=== PATIENT | male | born 1955 | race Caucasian/White ===

== ENCOUNTER 2020-07-04 10:57 | Inpatient (IN) ==
[2020-07-04] MEDS ORDERED: MoRPHine SULFATE 4 MG/ML 1 ML CARP\\VIAL IV STA ×2 (11:21→17:01)
[2020-07-04] MEDS ORDERED: SODIUM CHLORIDE 0.9% 1000ML 2,000 ML IV ONE (11:21)
--- NOTE | 2020-07-04 11:30 | Emergency Department Note ---
Impression & Plan Sepsis, Leukocytosis, Acute UTI, Acute epididymitis ED Provider Note NAME: KARLO SMITH AGE: 65 SEX: M : 1955 ARRIVES VIA: Walk-In INFORMANT: Patient, ED PROVIDER(S): Dell Morgan DO CHIEF COMPLAINT: abdominal pain HPI: Patient is a 65-year-old male with past medical history of KILEY, bronchitis and atrial flutter that presents the ER for multiple complaints. Everything started yesterday with abdominal pain and lower belly, nausea, and vomiting. Following this he has been dizzy lightheaded and had a headache. He denies any chest pain. Over the past 2 to 3 weeks he has been having increased difficulty urinating. He has had some overflow incontinence today. He has had diarrhea as well. He is noted some blood in his urine today. Admits to some mild shortness of breath chills. Fever was as high as 101 yesterday. No other exacerbating or remitting factors. He is also having bilateral testicle pain. ROS: See above HPI for pertinent positives & negatives. A total of 10 systems reviewed and were otherwise negative. PAST MEDICAL HISTORY:See Below PAST SURGICAL HISTORY:See Below FAMILY HISTORY:See Below SOCIAL HISTORY:See Below HOME MEDICATIONS:See Below ALLERGIES:See Below VITALS:See Below PHYSICAL EXAMINATION: GENERAL: Sitting up in bed, alert, ill-appearing, disheveled EYE EXAM: normal conjunctiva. OROPHARYNX: no exudate, no erythema, lips, buccal mucosa, and tongue normal and mucous membranes are moist NECK: supple, no nuchal rigidity, no adenopathy, non-tender LUNGS: Clear to auscultation. Normal chest wall mechanics HEART: no murmurs, S1 normal and S2 normal ABDOMEN: abdomen soft, non-tender, normo-active bowel sounds, no masses, no rebound or guarding. : Bilateral testicle pain UPPER EXTREMITIES: upper extremities are grossly normal. LOWER EXTREMITIES: No pitting edema. NEURO EXAM: Normal sensorium, cranial nerves II-XII grossly intact, normal speech, no gross weakness of arms, no gross weakness of legs. MEDICAL DECISION MAKING: Patient is a 65-year-old male who presents the ER for fever and abdominal pain associate with nausea vomiting. IV was established blood work was obtained. He was found to be febrile and tachycardic. Labs show leukocytosis 13,000. No significant anemia. INR was unremarkable. BMP with slightly elevated chloride. LFTs bilirubin was remarkable for T bili of 1.3. Troponin was negative. Pro- Fadi was normal. UA does show a clear UTI. Covid was negative. CT abdomen pelvis shows inflammation around the bladder. Ultrasound showed epididymitis. Patient was given IV fluids IV antibiotics and IV morphine. He was updated bedside admitted to the hospital for further work-up. Triage Nursing notes reviewed. Limited review of prior medical records performed Vital Signs: reviewed and remarkable for no significant abnormalities Differential diagnosis: Differential diagnosis includes etiologies such as sepsis, UTI, pneumonia, metabolic, electrolyte abnormalities, cardiac sources, intracerebral event, toxicologic, neurological, as well as others were entertained. ER treatment provided: See below Diagnostics interpreted by me: ECG: Sinus rhythm rate of 71 Normal axis No PVCs QTC 447 Cardiac Monitoring: An order was placed for continuous cardiac monitoring. The monitor shows a rate of 70 with sinus rhythm. Laboratory studies: As stated above and show below. 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 [employer] Feels Safe at Home: Yes Allergies Allergies Allergy/AdvReac Type Severity Reaction Status Date / Time Penicillins Allergy Intermediate RASH Verified 07/04/20 13:13 Home Meds Home Medications Medication Instructions Recorded Confirmed ascorbic acid (vitamin C) [Vitamin 500 mg PO QDD 06/02/18 07/04/20 C] [id number] K-lycop 1 tab PO QDD 06/02/18 07/04/20 [Men's 50 Plus Multivitamin] tamsulosin [Flomax] 0.4 mg PO HS 06/02/18 07/04/20 aspirin [Aspir-81] 81 mg PO HS 07/04/20 07/04/20 omeprazole 40 mg PO DAILYBB 07/04/20 07/04/20 Previous Rx's Medication Instructions Recorded flecainide 100 mg tablet 100 mg PO Q12H #180 tab 01/05/20 metoprolol tartrate 25 mg tablet 25 mg PO BID #180 tab 01/05/20 Results & Data (ED) Vital Signs Vital Signs - 24 hr 07/04/20 11:04 07/04/20 12:00 07/04/20 12:09 Temperature 37.3 C Temperature Source Temporal Artery Scan Pulse Rate 74 74 73 Pulse Rate [Right Finger] Pulse Rate from SpO2 Sensor 74 73 Pulse Rhythm Pulse Rhythm [Right Finger] Pulse Strength [Right Finger] Respiratory Rate 16 36 H 35 H Respiratory Effort / Characteristics Respiratory Depth Blood Pressure 136/79 136/75 Blood Pressure [Left Arm] Blood Pressure Mean 98 95 Blood Pressure Mean [Left Arm] Pulse Oximetry 95 94 95 Oxygen Delivery Method Sepsis Recent Fever Within 48 Hours No Sepsis New/Unexplained Change in Mental Status No Sepsis Action Taken by Nursing No Action Required 07/04/20 12:10 07/04/20 12:20 07/04/20 12:23 Temperature Temperature Source Pulse Rate 81 75 78 Pulse Rate [Right Finger] 75 Pulse Rate from SpO2 Sensor 80 74 Pulse Rhythm Regular Pulse Rhythm [Right Finger] Regular Pulse Strength [Right Finger] Respiratory Rate 20 16 20 Respiratory Effort / Characteristics Short of Breath Respiratory Depth Normal Blood Pressure Blood Pressure [Left Arm] 136/75 Blood Pressure Mean Blood Pressure Mean [Left Arm] 95 Pulse Oximetry 95 95 95 Oxygen Delivery Method Room Air Sepsis Recent Fever Within 48 Hours Sepsis New/Unexplained Change in Mental Status Sepsis Action Taken by Nursing 07/04/20 12:30 07/04/20 12:31 07/04/20 12:40 Temperature Temperature Source Pulse Rate 79 78 79 Pulse Rate [Right Finger] Pulse Rate from SpO2 Sensor 79 79 80 Pulse Rhythm Pulse Rhythm [Right Finger] Pulse Strength [Right Finger] Respiratory Rate 28 H 16 36 H Respiratory Effort / Characteristics Respiratory Depth Blood Pressure 142/78 H Blood Pressure [Left Arm] Blood Pressure Mean 99 Blood Pressure Mean [Left Arm] Pulse Oximetry 95 95 94 Oxygen Delivery Method Sepsis Recent Fever Within 48 Hours Sepsis New/Unexplained Change in Mental Status Sepsis Action Taken by Nursing 07/04/20 12:50 07/04/20 13:00 07/04/20 13:01 Temperature Temperature Source Pulse Rate 75 77 79 Pulse Rate [Right Finger] Pulse Rate from SpO2 Sensor 75 76 79 Pulse Rhythm Pulse Rhythm [Right Finger] Pulse Strength [Right Finger] Respiratory Rate 30 H 32 H 33 H Respiratory Effort / Characteristics Short of Breath Respiratory Depth Blood Pressure 137/84 Blood Pressure [Left Arm] Blood Pressure Mean 101 Blood Pressure Mean [Left Arm] Pulse Oximetry 95 96 96 Oxygen Delivery Method Room Air Sepsis Recent Fever Within 48 Hours Sepsis New/Unexplained Change in Mental Status Sepsis Action Taken by Nursing 07/04/20 13:10 07/04/20 13:35 07/04/20 13:36 Temperature Temperature Source Pulse Rate 69 88 88 Pulse Rate [Right Finger] Pulse Rate from SpO2 Sensor 70 89 Pulse Rhythm Pulse Rhythm [Right Finger] Pulse Strength [Right Finger] Respiratory Rate 18 32 H 29 H Respiratory Effort / Characteristics Respiratory Depth Blood Pressure 149/81 H Blood Pressure [Left Arm] Blood Pressure Mean 103 Blood Pressure Mean [Left Arm] Pulse Oximetry 95 96 Oxygen Delivery Method Sepsis Recent Fever Within 48 Hours Sepsis New/Unexplained Change in Mental Status Sepsis Action Taken by Nursing 07/04/20 13:40 07/04/20 13:50 07/04/20 14:00 Temperature 37.9 C H Temperature Source Oral Pulse Rate 83 86 90 Pulse Rate [Right Finger] 66 Pulse Rate from SpO2 Sensor 83 86 92 H Pulse Rhythm Pulse Rhythm [Right Finger] Regular Pulse Strength [Right Finger] Normal Respiratory Rate 35 H 26 H 25 H Respiratory Effort / Characteristics Non-Labored Respiratory Depth Normal Blood Pressure Blood Pressure [Left Arm] 144/74 H Blood Pressure Mean Blood Pressure Mean [Left Arm] 97 Pulse Oximetry 96 95 97 Oxygen Delivery Method Room Air Sepsis Recent Fever Within 48 Hours Sepsis New/Unexplained Change in Mental Status Sepsis Action Taken by Nursing 07/04/20 14:01 07/04/20 14:11 07/04/20 14:20 Temperature Temperature Source Pulse Rate 94 H 92 H Pulse Rate [Right Finger] Pulse Rate from SpO2 Sensor 93 H 104 H 90 Pulse Rhythm Pulse Rhythm [Right Finger] Pulse Strength [Right Finger] Respiratory Rate 33 H 41 H Respiratory Effort / Characteristics Respiratory Depth Blood Pressure Blood Pressure [Left Arm] Blood Pressure Mean 106 Blood Pressure Mean [Left Arm] Pulse Oximetry 97 95 95 Oxygen Delivery Method Sepsis Recent Fever Within 48 Hours Sepsis New/Unexplained Change in Mental Status Sepsis Action Taken by Nursing 07/04/20 14:46 07/04/20 15:05 07/04/20 15:10 Temperature 37.9 C H Temperature Source Oral Pulse Rate 109 H 103 H Pulse Rate [Right Finger] 74 Pulse Rate from SpO2 Sensor 103 H Pulse Rhythm Pulse Rhythm [Right Finger] Regular Pulse Strength [Right Finger] Respiratory Rate 18 44 H 19 Respiratory Effort / Characteristics Non-Labored Respiratory Depth Normal Blood Pressure Blood Pressure [Left Arm] 144/74 H Blood Pressure Mean Blood Pressure Mean [Left Arm] 97 Pulse Oximetry 95 91 Oxygen Delivery Method Room Air Sepsis Recent Fever Within 48 Hours Sepsis New/Unexplained Change in Mental Status Sepsis Action Taken by Nursing 07/04/20 15:20 07/04/20 15:30 07/04/20 15:40 Temperature Temperature Source Pulse Rate 101 H 98 H 102 H Pulse Rate [Right Finger] Pulse Rate from SpO2 Sensor 101 H 96 H 100 H Pulse Rhythm Pulse Rhythm [Right Finger] Pulse Strength [Right Finger] Respiratory Rate 37 H 1 L 20 Respiratory Effort / Characteristics Respiratory Depth Blood Pressure Blood Pressure [Left Arm] Blood Pressure Mean Blood Pressure Mean [Left Arm] Pulse Oximetry 90 91 93 Oxygen Delivery Method Sepsis Recent Fever Within 48 Hours Sepsis New/Unexplained Change in Mental Status Sepsis Action Taken by Nursing 07/04/20 15:50 07/04/20 15:51 Temperature 37.8 C H Temperature Source Oral Pulse Rate Pulse Rate [Right Finger] Pulse Rate from SpO2 Sensor Pulse Rhythm Pulse Rhythm [Right Finger] Pulse Strength [Right Finger] Respiratory Rate Respiratory Effort / Characteristics Short of Breath Respiratory Depth Blood Pressure Blood Pressure [Left Arm] 142/84 H Blood Pressure Mean Blood Pressure Mean [Left Arm] 103 Pulse Oximetry 97 Oxygen Delivery Method Room Air Sepsis Recent Fever Within 48 Hours Sepsis New/Unexplained Change in Mental Status Sepsis Action Taken by Nursing Laboratory Data Result diagrams: 07/04/20 12:34 07/04/20 12:00 Lab Results 07/04/20 07/04/20 07/04/20 Range/Units 11:40 11:40 11:54 WBC RBC Hgb Hct MCV MCH MCHC RDW Std Deviation RDW Coeff of Kvng Plt Count MPV Immature Gran % (Auto) Neut % (Auto) Lymph % (Auto) Mccone % (Auto) Eos % (Auto) Baso % (Auto) Neut # (Auto) Lymph # (Auto) Mccone # (Auto) Eos # (Auto) Baso # (Auto) Immature Gran # (Auto) Absolute Nucleated RBC Nucleated RBC % (auto) Neutrophils % (Manual) Band Neutrophils % Lymphocytes % (Manual) Prolymphocyte % Reactive Lymphs % (Man) Monocytes % (Manual) Eosinophils % (Manual) Basophils % (Manual) Metamyelocytes % (Man) Myelocytes % (Man) Promyelocytes % (Man) Blast Cells % (Manual) Plasma Cell % (Manual) Other Cells % Nucleated RBC % Neutrophils # (Manual) Band Neutrophils # Total Absolute Neuts Lymphocytes # (Manual) Prolymphocyte # Reactive Lymphs # Total Abs Lymphocytes Monocytes # (Manual) Eosinophils # (Manual) Basophils # (Manual) Metamyelocytes # (Man) Myelocytes # (Manual) Promyelocytes # (Man) Blast Cells # (Man) Plasma Cell # (Manual) Other Cells # Nucleated RBCs # (Man) Hypersegmented Neuts Hyposegmented Neuts Hypogranular Neuts Large Granular Lymphs # Lrg Granular Lymphs Hairy Cells Smudge Cells Toxic Granulation Toxic Vacuolation Dohle Bodies Ramonita Rods Platelet Estimate Hypogranular Platelets Clumped Platelets Giant Platelets Platelet Satelliting RBC Morphology Polychromasia Hypochromasia Poikilocytosis Basophilic Stippling Anisocytosis Microcytosis Macrocytosis Spherocytes Pappenheimer Bodies Sickle Cells Target Cells Tear Drop Cells Ovalocytes Stomatocytes Brown-[place] Bodies Echinocytes Acanthocytes (Spur) Rouleaux RBC Agglutinates Schistocytes RBC Morph Comment Sezary Cell PT INR APTT PTT Ratio Sodium (136-145) mmol/L Potassium (3.5-5.1) mmol/L Chloride (98-107) mmol/L Carbon Dioxide (21-32) mmol/L Anion Gap (3-11) BUN (7-18) mg/dl Creatinine (0.6-1.4) mg/dl Est Cr Clr Drug Dosing ml/min Est GFR ( Amer) Est GFR (Non-Af Amer) BUN/Creatinine Ratio (10-20) Glucose (70-99) mg/dl Lactate 1.2 (0.4-2.0) mmol/L Calcium (8.5-10.1) mg/dl Magnesium (1.8-2.4) mg/dl Total Bilirubin (0.2-1) mg/dl AST (15-37) U/L ALT (12-78) U/L Alkaline Phosphatase (45-117) U/L Troponin I (0-0.045) ng/ml Total Protein (6.4-8.2) gm/dl Albumin (3.4-5.0) gm/dl Globulin (2.5-4.0) gm/dl Albumin/Globulin Ratio (0.9-2) Procalcitonin (0-0.5) ng/ml Specimen Hemolysis Urine Color Urine Appearance (Clear) Urine pH (4.5-7.5) Ur Specific Zahl (1.000-1.030) Urine Protein (Negative) Urine Glucose (UA) (Negative) Urine Ketones (Negative) Urine Blood (Negative) Urine Nitrite (Negative) Urine Bilirubin (Negative) Urine Urobilinogen (Negative) Ur Leukocyte Esterase (Negative) Urine WBC (Auto) (0-5) /hpf Urine RBC (Auto) (0-4) /hpf U Hyaline Cast (Auto) (0-5) /lpf U Epithel Cells (Auto) (0-5) /lpf Urine Bacteria (Auto) (Negative) COVID-19 Eval Order CovFluRsv at [facility] SARS-CoV-2 (PCR) NEGATIVE (Negative) Influenza Type A (PCR) Negative (Neg) Influenza Type B (PCR) Negative (Neg) RSV (RT-PCR) Negative (Neg) 07/04/20 07/04/20 07/04/20 Range/Units 12:00 12:00 12:00 WBC Cancelled RBC Cancelled Hgb Cancelled Hct Cancelled MCV Cancelled MCH Cancelled MCHC Cancelled RDW Std Deviation Cancelled RDW Coeff of Kvng Cancelled Plt Count Cancelled MPV Cancelled Immature Gran % (Auto) Cancelled Neut % (Auto) Cancelled Lymph % (Auto) Cancelled Mccone % (Auto) Cancelled Eos % (Auto) Cancelled Baso % (Auto) Cancelled Neut # (Auto) Cancelled Lymph # (Auto) Cancelled Mccone # (Auto) Cancelled Eos # (Auto) Cancelled Baso # (Auto) Cancelled Immature Gran # (Auto) Cancelled Absolute Nucleated RBC Cancelled Nucleated RBC % (auto) Cancelled Neutrophils % (Manual) Cancelled Band Neutrophils % Cancelled Lymphocytes % (Manual) Cancelled Prolymphocyte % Cancelled Reactive Lymphs % (Man) Cancelled Monocytes % (Manual) Cancelled Eosinophils % (Manual) Cancelled Basophils % (Manual) Cancelled Metamyelocytes % (Man) Cancelled Myelocytes % (Man) Cancelled Promyelocytes % (Man) Cancelled Blast Cells % (Manual) Cancelled Plasma Cell % (Manual) Cancelled Other Cells % Cancelled Nucleated RBC % Cancelled Neutrophils # (Manual) Cancelled Band Neutrophils # Cancelled Total Absolute Neuts Cancelled Lymphocytes # (Manual) Cancelled Prolymphocyte # Cancelled Reactive Lymphs # Cancelled Total Abs Lymphocytes Cancelled Monocytes # (Manual) Cancelled Eosinophils # (Manual) Cancelled Basophils # (Manual) Cancelled Metamyelocytes # (Man) Cancelled Myelocytes # (Manual) Cancelled Promyelocytes # (Man) Cancelled Blast Cells # (Man) Cancelled Plasma Cell # (Manual) Cancelled Other Cells # Cancelled Nucleated RBCs # (Man) Cancelled Hypersegmented Neuts Cancelled Hyposegmented Neuts Cancelled Hypogranular Neuts Cancelled Large Granular Lymphs Cancelled # Lrg Granular Lymphs Cancelled Hairy Cells Cancelled Smudge Cells Cancelled Toxic Granulation Cancelled Toxic Vacuolation Cancelled Dohle Bodies Cancelled Ramonita Rods Cancelled Platelet Estimate Cancelled Hypogranular Platelets Cancelled Clumped Platelets Cancelled Giant Platelets Cancelled Platelet Satelliting Cancelled RBC Morphology Cancelled Polychromasia Cancelled Hypochromasia Cancelled Poikilocytosis Cancelled Basophilic Stippling Cancelled Anisocytosis Cancelled Microcytosis Cancelled Macrocytosis Cancelled Spherocytes Cancelled Pappenheimer Bodies Cancelled Sickle Cells Cancelled Target Cells Cancelled Tear Drop Cells Cancelled Ovalocytes Cancelled Stomatocytes Cancelled [place] Bodies Cancelled Echinocytes Cancelled Acanthocytes (Spur) Cancelled Rouleaux Cancelled RBC Agglutinates Cancelled Schistocytes Cancelled RBC Morph Comment Cancelled Sezary Cell Cancelled PT INR APTT PTT Ratio Sodium 136 (136-145) mmol/L Potassium 4.1 (3.5-5.1) mmol/L Chloride 109 H (98-107) mmol/L Carbon Dioxide 22 (21-32) mmol/L Anion Gap 5.0 (3-11) BUN 18 (7-18) mg/dl Creatinine 0.97 (0.6-1.4) mg/dl Est Cr Clr Drug Dosing 92.2 ml/min Est GFR ( Amer) 95.9 Est GFR (Non-Af Amer) 82.7 BUN/Creatinine Ratio 18.2 (10-20) Glucose 120 H (70-99) mg/dl Lactate (0.4-2.0) mmol/L Calcium 8.8 (8.5-10.1) mg/dl Magnesium 2.2 (1.8-2.4) mg/dl Total Bilirubin 1.3 H (0.2-1) mg/dl AST 15 (15-37) U/L ALT 31 (12-78) U/L Alkaline Phosphatase 42 L (45-117) U/L Troponin I < 0.015 (0-0.045) ng/ml Total Protein 7.0 (6.4-8.2) gm/dl Albumin 3.5 (3.4-5.0) gm/dl Globulin 3.5 (2.5-4.0) gm/dl Albumin/Globulin Ratio 1.0 (0.9-2) Procalcitonin 0.43 (0-0.5) ng/ml Specimen Hemolysis Urine Color Urine Appearance (Clear) Urine pH (4.5-7.5) Ur Specific Zahl (1.000-1.030) Urine Protein (Negative) Urine Glucose (UA) (Negative) Urine Ketones (Negative) Urine Blood (Negative) Urine Nitrite (Negative) Urine Bilirubin (Negative) Urine Urobilinogen (Negative) Ur Leukocyte Esterase (Negative) Urine WBC (Auto) (0-5) /hpf Urine RBC (Auto) (0-4) /hpf U Hyaline Cast (Auto) (0-5) /lpf U Epithel Cells (Auto) (0-5) /lpf Urine Bacteria (Auto) (Negative) COVID-19 Eval Order SARS-CoV-2 (PCR) (Negative) Influenza Type A (PCR) (Neg) Influenza Type B (PCR) (Neg) RSV (RT-PCR) (Neg) 07/04/20 07/04/20 07/04/20 Range/Units 12:00 12:00 12:34 WBC 13.14 H RBC 4.53 L Hgb 14.6 Hct 41.2 L MCV 90.9 MCH 32.2 MCHC 35.4 RDW Std Deviation 42.8 RDW Coeff of Kvng 12.9 Plt Count 135 MPV 9.7 Immature Gran % (Auto) 0.2 Neut % (Auto) 90.9 Lymph % (Auto) 5.5 Mccone % (Auto) 3.3 Eos % (Auto) 0.0 Baso % (Auto) 0.1 Neut # (Auto) 11.94 H Lymph # (Auto) 0.72 L Mccone # (Auto) 0.44 Eos # (Auto) 0.00 Baso # (Auto) 0.01 Immature Gran # (Auto) 0.03 H Absolute Nucleated RBC Nucleated RBC % (auto) Neutrophils % (Manual) Band Neutrophils % Lymphocytes % (Manual) Prolymphocyte % Reactive Lymphs % (Man) Monocytes % (Manual) Eosinophils % (Manual) Basophils % (Manual) Metamyelocytes % (Man) Myelocytes % (Man) Promyelocytes % (Man) Blast Cells % (Manual) Plasma Cell % (Manual) Other Cells % Nucleated RBC % Neutrophils # (Manual) Band Neutrophils # Total Absolute Neuts Lymphocytes # (Manual) Prolymphocyte # Reactive Lymphs # Total Abs Lymphocytes Monocytes # (Manual) Eosinophils # (Manual) Basophils # (Manual) Metamyelocytes # (Man) Myelocytes # (Manual) Promyelocytes # (Man) Blast Cells # (Man) Plasma Cell # (Manual) Other Cells # Nucleated RBCs # (Man) Hypersegmented Neuts Hyposegmented Neuts Hypogranular Neuts Large Granular Lymphs # Lrg Granular Lymphs Hairy Cells Smudge Cells Toxic Granulation Toxic Vacuolation Dohle Bodies Ramonita Rods Platelet Estimate Hypogranular Platelets Clumped Platelets Giant Platelets Platelet Satelliting RBC Morphology Polychromasia Hypochromasia Poikilocytosis Basophilic Stippling Anisocytosis Microcytosis Macrocytosis Spherocytes Pappenheimer Bodies Sickle Cells Target Cells Tear Drop Cells Ovalocytes Stomatocytes [place] Bodies Echinocytes Acanthocytes (Spur) Rouleaux RBC Agglutinates Schistocytes RBC Morph Comment Sezary Cell PT Cancelled INR Cancelled APTT Cancelled PTT Ratio Cancelled Sodium (136-145) mmol/L Potassium (3.5-5.1) mmol/L Chloride (98-107) mmol/L Carbon Dioxide (21-32) mmol/L Anion Gap (3-11) BUN (7-18) mg/dl Creatinine (0.6-1.4) mg/dl Est Cr Clr Drug Dosing ml/min Est GFR ( Amer) Est GFR (Non-Af Amer) BUN/Creatinine Ratio (10-20) Glucose (70-99) mg/dl Lactate (0.4-2.0) mmol/L Calcium (8.5-10.1) mg/dl Magnesium (1.8-2.4) mg/dl Total Bilirubin (0.2-1) mg/dl AST (15-37) U/L ALT (12-78) U/L Alkaline Phosphatase (45-117) U/L Troponin I (0-0.045) ng/ml Total Protein (6.4-8.2) gm/dl Albumin (3.4-5.0) gm/dl Globulin (2.5-4.0) gm/dl Albumin/Globulin Ratio (0.9-2) Procalcitonin (0-0.5) ng/ml Specimen Hemolysis Urine Color [place] Urine Appearance Turbid A (Clear) Urine pH 5.5 (4.5-7.5) Ur Specific Zahl 1.026 (1.000-1.030) Urine Protein 3+ H (Negative) Urine Glucose (UA) Negative (Negative) Urine Ketones 1+ H (Negative) Urine Blood 3+ H (Negative) Urine Nitrite Positive A (Negative) Urine Bilirubin Negative (Negative) Urine Urobilinogen Negative (Negative) Ur Leukocyte Esterase 3+ H (Negative) Urine WBC (Auto) >30 H (0-5) /hpf Urine RBC (Auto) >30 H (0-4) /hpf U Hyaline Cast (Auto) 1-5 (0-5) /lpf U Epithel Cells (Auto) 5-10 H (0-5) /lpf Urine Bacteria (Auto) 4+ H (Negative) COVID-19 Eval Order SARS-CoV-2 (PCR) (Negative) Influenza Type A (PCR) (Neg) Influenza Type B (PCR) (Neg) RSV (RT-PCR) (Neg) 07/04/20 Range/Units 12:34 WBC RBC Hgb Hct MCV MCH MCHC RDW Std Deviation RDW Coeff of Kvng Plt Count MPV Immature Gran % (Auto) Neut % (Auto) Lymph % (Auto) Mccone % (Auto) Eos % (Auto) Baso % (Auto) Neut # (Auto) Lymph # (Auto) Mccone # (Auto) Eos # (Auto) Baso # (Auto) Immature Gran # (Auto) Absolute Nucleated RBC Nucleated RBC % (auto) Neutrophils % (Manual) Band Neutrophils % Lymphocytes % (Manual) Prolymphocyte % Reactive Lymphs % (Man) Monocytes % (Manual) Eosinophils % (Manual) Basophils % (Manual) Metamyelocytes % (Man) Myelocytes % (Man) Promyelocytes % (Man) Blast Cells % (Manual) Plasma Cell % (Manual) Other Cells % Nucleated RBC % Neutrophils # (Manual) Band Neutrophils # Total Absolute Neuts Lymphocytes # (Manual) Prolymphocyte # Reactive Lymphs # Total Abs Lymphocytes Monocytes # (Manual) Eosinophils # (Manual) Basophils # (Manual) Metamyelocytes # (Man) Myelocytes # (Manual) Promyelocytes # (Man) Blast Cells # (Man) Plasma Cell # (Manual) Other Cells # Nucleated RBCs # (Man) Hypersegmented Neuts Hyposegmented Neuts Hypogranular Neuts Large Granular Lymphs # Lrg Granular Lymphs Hairy Cells Smudge Cells Toxic Granulation Toxic Vacuolation Dohle Bodies Ramonita Rods Platelet Estimate Hypogranular Platelets Clumped Platelets Giant Platelets Platelet Satelliting RBC Morphology Polychromasia Hypochromasia Poikilocytosis Basophilic Stippling Anisocytosis Microcytosis Macrocytosis Spherocytes Pappenheimer Bodies Sickle Cells Target Cells Tear Drop Cells Ovalocytes Stomatocytes [place] Bodies Echinocytes Acanthocytes (Spur) Rouleaux RBC Agglutinates Schistocytes RBC Morph Comment Sezary Cell PT 11.6 INR 1.2 H APTT 26.8 PTT Ratio 1.0 Sodium (136-145) mmol/L Potassium (3.5-5.1) mmol/L Chloride (98-107) mmol/L Carbon Dioxide (21-32) mmol/L Anion Gap (3-11) BUN (7-18) mg/dl Creatinine (0.6-1.4) mg/dl Est Cr Clr Drug Dosing ml/min Est GFR ( Amer) Est GFR (Non-Af Amer) BUN/Creatinine Ratio (10-20) Glucose (70-99) mg/dl Lactate (0.4-2.0) mmol/L Calcium (8.5-10.1) mg/dl Magnesium (1.8-2.4) mg/dl Total Bilirubin (0.2-1) mg/dl AST (15-37) U/L ALT (12-78) U/L Alkaline Phosphatase (45-117) U/L Troponin I (0-0.045) ng/ml Total Protein (6.4-8.2) gm/dl Albumin (3.4-5.0) gm/dl Globulin (2.5-4.0) gm/dl Albumin/Globulin Ratio (0.9-2) Procalcitonin (0-0.5) ng/ml Specimen Hemolysis Urine Color Urine Appearance (Clear) Urine pH (4.5-7.5) Ur Specific Zahl (1.000-1.030) Urine Protein (Negative) Urine Glucose (UA) (Negative) Urine Ketones (Negative) Urine Blood (Negative) Urine Nitrite (Negative) Urine Bilirubin (Negative) Urine Urobilinogen (Negative) Ur Leukocyte Esterase (Negative) Urine WBC (Auto) (0-5) /hpf Urine RBC (Auto) (0-4) /hpf U Hyaline Cast (Auto) (0-5) /lpf U Epithel Cells (Auto) (0-5) /lpf Urine Bacteria (Auto) (Negative) COVID-19 Eval Order SARS-CoV-2 (PCR) (Negative) Influenza Type A (PCR) (Neg) Influenza Type B (PCR) (Neg) RSV (RT-PCR) (Neg) Administered Medications Discontinued Medications Sodium Chloride (Nss 1000ml) 2,000 mls @ 999 mls/hr IV .Q2H1M ONE Stop: 07/04/20 13:21 Last Admin: 07/04/20 12:20 Dose: 999 mls/hr Documented by: [id number] Ceftriaxone Sodium (Rocephin) 1,000 mg in 50 mls @ 100 mls/hr IV NOW STA Stop: 07/04/20 13:54 Last Admin: 07/04/20 14:12 Dose: 100 mls/hr Documented by: [id number] Ioversol (Optiray 320 100ml) 91 ml IV ONCE ONE Stop: 07/04/20 13:34 Last Admin: 07/04/20 13:34 Dose: 91 ml Documented by: [id number] Morphine Sulfate (Morphine Sulfate 4 Mg/Ml 1 Ml Carp\Vial) 4 mg IV NOW STA Stop: 07/04/20 11:22 Last Admin: 07/04/20 12:21 Dose: 4 mg Documented by: [id number] Imaging Data Radiologist's Impression: Abdomen/Pelvis CT 07/04/20 11:19 CT abd pelvis IV con only CLINICAL HISTORY: Lower abdominal pain and fever COMPARISON STUDY: August 2009 TECHNIQUE: The patient was scanned in a dynamic helical fashion during intravenous administration of 91 cc of Optiray 320 A dose lowering technique was utilized adhering to the principles of ALARA. CT DOSE: 895.49 mGycm FINDINGS: Lower chest: There are bibasilar dependent opacities, likely atelectatic. There is a small hiatal hernia. Liver: There is mild hepatic steatosis. No focal hepatic masses are visualized. The hepatic and portal veins appear patent. Gallbladder: Unremarkable. Spleen: Normal in size and attenuation. Pancreas: Unremarkable. Adrenal glands: Unremarkable. Kidneys: There is symmetric renal cortical enhancement. The kidneys are normal in size without hydronephrosis. Bowel: There are no transition zones to indicate bowel obstruction. There is no evidence of acute diverticulitis. The appendix appears normal. Peritoneum: There is no intraperitoneal free air or abdominal ascites. There are small fat-containing umbilical hernia. Vasculature: The abdominal aorta is normal in course and caliber. Adenopathy: None. Pelvic viscera: The prostate is significantly enlarged measuring 79 mm in AP diameter. The seminal vesicles appear somewhat bulbous and may be edematous. There is significant bladder wall thickening and infiltration of the perivesical fat. Clinical correlation with regards to a cystitis is recommended. Skeletal structures: No destructive osseous lesions are seen. IMPRESSION: 1. No evidence of bowel obstruction. No evidence of free air 2. No evidence of acute diverticulitis. No evidence of acute appendicitis 3. Marked prostatomegaly. Possible seminal vesicle edema. Significant bladder wall thickening with infiltration of perivesical fat. Clinical correlation with regards to cystitis is recommended ACT 112: Negative or not required by law. Electronically signed by: Juan Booth M.D. 07/04/2020 1:51 PM Chest X-Ray 07/04/20 11:20 XR chest 1V portable CLINICAL HISTORY: SEPSIS COMPARISON STUDY: Chest radiograph June 02, 2018. FINDINGS: Lung volumes are normal. Linear bibasilar opacities reflect atelectasis. There is no consolidation. No evidence for pulmonary edema. Cardiac size is at the upper limits of normal. IMPRESSION: No acute cardiopulmonary findings. ACT 112: Negative or not required by law. Electronically signed by: Omero Forbes M.D. 07/04/2020 11:43 AM Scrotum Ultrasound 07/04/20 13:59 ULTRASOUND TESTES AND SCROTUM CLINICAL HISTORY: Bilateral testicular pain COMPARISON STUDY: No priors. TECHNIQUE: Real-time, grayscale, and color Doppler sonography of the testes and scrotum is performed. Images are reviewed in the transverse and longitudinal planes. FINDINGS: The testes are normal in size and homogeneous in echotexture. The right testis measures 3.9 x 2.5 x 3.8 cm and the left testis measures 4.0 x 2.3 x 2.5 cm. No intratesticular mass is seen. Tubular ectasia of the rete testis is incidentally noted on the right. Testicular blood flow is normal and symmetric. Normal Doppler waveforms are identified in both testes. The epididymides appear prominent and hyperemic on color imaging, right greater than left. Bilateral epididymal head cysts measure up to 1.2 cm. No varicocele or hydrocele is seen. IMPRESSION: 1. Unremarkable sonographic appearance of the testes. 2. Findings suggest bilateral epididymitis, right greater than left. Clinical correlation will be required. ACT 112: Negative or not required by law. Electronically signed by: Liborio Jimenez M.D. 07/04/2020 2:54 PM Discharge Plan Visit Data Chief Complaint: Shortness of Breath/Dyspnea Stated Complaint: ACHES, SOB, DIARRHEA, FEVER ED Provider: Dell Morgan Discharge Problem: Sepsis, Leukocytosis, Acute UTI, Acute epididymitis Forms Stand Alone Forms: [facility] Prescriptions Prescriptions: No Action flecainide 100 mg tablet 100 mg PO Q12H Qty: 180 RF: 3 metoprolol tartrate 25 mg tablet 25 mg PO BID Qty: 180 RF: 3 ascorbic acid (vitamin C) [Vitamin C] 500 mg Tablet 500 mg PO QDD RF: 0 tamsulosin [Flomax] 0.4 mg Capsule 0.4 mg PO HS RF: 0 Men's 50 Plus Multivitamin 400-20-370 mcg Tablet 1 tab PO QDD RF: 0 aspirin [Aspir-81] 81 mg Tablet,Delayed Release (Dr/Ec) 81 mg PO HS RF: 0 omeprazole 20 mg capsule,delayed release(DR/EC) 40 mg PO DAILYBB RF: 0 Discharge Problem: Sepsis Qualifiers: Sepsis type: sepsis due to unspecified organism Sepsis acute organ dysfunction status: unspecified Qualified Code(s): A41.9 - Sepsis, unspecified organism Leukocytosis Qualifiers: Eosinophilia type: unspecified eosinophilia
--- NOTE | 2020-07-04 11:44 | XRay Report ---
XR chest 1V portable CLINICAL HISTORY: SEPSIS COMPARISON STUDY: Chest radiograph June 02, 2018. FINDINGS: Lung volumes are normal. Linear bibasilar opacities reflect atelectasis. There is no consol idation. No evidence for pulmonary edema. Cardiac size is at the upper limits of normal. IMPRESSION: No acute cardiopulmonary findings. ACT 112: Negative or not required by law. Electronically signed by: Omero Forbes M.D. 07/04/2020 11:43 AM
[2020-07-04 12:37] LABS: Influenza A virus by PCR Negative (Neg); Influenza B virus by PCR Negative (Neg); RSV by PCR Negative (Neg); SARS CoV2 RNA(COVID-19) InHosp NEGATIVE (Negative)
[2020-07-04 12:40] LABS: Appearance Urine Turbid (Clear); Bacteria Urine Automated 4+ (Negative); Bilirubin Urine Negative (Negative); Blood Urine 3+ (Negative); Color Urine Orange; Glucose Urine UA Negative (Negative); Ketones Urine 1+ (Negative); Leukocyte Esterase Urine 3+ (Negative); Nitrite Urine Positive (Negative); Protein Urine 3+ (Negative); RBC Urine Automated >30 /hpf (0-4); Specific Gravity Urine 1.026 (1.000-1.030); Urobilinogen Urine Negative (Negative); WBC Urine Automated >30 /hpf (0-5); pH Urine 5.5 (4.5-7.5)
[2020-07-04 12:46] LABS: Basophils # (auto) 0.01 K/uL (0-0.2); Basophils % (auto) 0.1 %; Hematocrit (blood only) 41.2 % (42-52); Hemoglobin 14.6 g/dL (14.0-18.0); Immature Granulocytes # (auto) 0.03 K/uL (0.00-0.02); Immature Granulocytes % (auto) 0.2 %; Lymphocytes # (auto) 0.72 K/uL (1.2-3.4); Lymphocytes % (auto) 5.5 %; Mean Corpuscular Hemoglobin 32.2 pg (25-34); Mean Corpuscular Hgb Conc 35.4 g/dL (32-36); Mean Corpuscular Volume 90.9 fL (80-100); Mean Platelet Volume 9.7 fL (7.4-10.4); Monocytes # (auto) 0.44 K/uL (0.11-0.59); Monocytes % (auto) 3.3 %; Neutrophils # (auto) 11.94 K/uL (1.4-6.5); Neutrophils % (auto) 90.9 %; Platelet Count 135 K/uL (130-400); RDW Coefficient of Variation 12.9 % (11.5-14.5); RDW Standard Deviation 42.8 fL (36.4-46.3); Red Blood Count 4.53 M/uL (4.7-6.1); White Blood Count 13.14 K/uL (4.8-10.8)
[2020-07-04 12:49] LABS: Alanine Aminotransferase 31 U/L (12-78); Albumin Level 3.5 gm/dl (3.4-5.0); Alkaline Phosphatase 42 U/L (45-117); Aspartate Aminotransferase 15 U/L (15-37); BUN Creatinine Ratio 18.2 (10-20); Bilirubin,Total 1.3 mg/dl (0.2-1); Blood Urea Nitrogen 18 mg/dl (7-18); Calcium 8.8 mg/dl (8.5-10.1); Carbon Dioxide 22 mmol/L (21-32); Chloride 109 mmol/L (98-107); Creatinine Clr Calc Pharmacy 92.2 ml/min; Est GFR (African American) 95.9; Est GFR (Non-African American) 82.7; Globulin 3.5 gm/dl (2.5-4.0); Glucose 120 mg/dl (70-99); Magnesium 2.2 mg/dl (1.8-2.4); Potassium 4.1 mmol/L (3.5-5.1); Sodium 136 mmol/L (136-145); Troponin I < 0.015 ng/ml (0-0.045)
[2020-07-04 12:58] LABS: INR 1.2 (0.9-1.1); Partial Thromboplastin Time 26.8 Seconds (21.0-31.0); Prothrombin Time 11.6 Seconds (9.0-12.0)
[2020-07-04] MEDS ORDERED: cefTRIAXone SODIUM 1,000 MG/50 ML BAG IV STA (13:25)
[2020-07-04] MEDS ORDERED: OPTIRAY 320 100ml IV ONE (13:33)
--- NOTE | 2020-07-04 13:52 | CT Scan Report ---
CT abd pelvis IV con only CLINICAL HISTORY: Lower abdominal pain and fever COMPARISON STUDY: August 2009 TECHNIQUE: The patient was scanned in a dynamic helical fashion during intravenous administration of 91 cc of Optiray 320 A dose lowering technique was utilized adhering to the principles of ALARA. CT DOSE: 895.49 mGycm FINDINGS: Lower chest: There are bibasilar dependent opacities, likely atelectatic. There is a small hiatal her mimi. Liver: There is mild hepatic steatosis. No focal hepatic masses are visualized. The hepatic and brendan l veins appear patent. Gallbladder: Unremarkable. Spleen: Normal in size and attenuation. Pancreas: Unremarkable. Adrenal glands: Unremarkable. Kidneys: There is symmetric renal cortical enhancement. The kidneys are normal in size without hydron ephrosis. Bowel: There are no transition zones to indicate bowel obstruction. There is no evidence of acute div erticulitis. The appendix appears normal. Peritoneum: There is no intraperitoneal free air or abdominal ascites. There are small fat-containing umbilical hernia. Vasculature: The abdominal aorta is normal in course and caliber. Adenopathy: None. Pelvic viscera: The prostate is significantly enlarged measuring 79 mm in AP diameter. The seminal ve sicles appear somewhat bulbous and may be edematous. There is significant bladder wall thickening and infiltration of the perivesical fat. Clinical correlation with regards to a cystitis is recommended. Skeletal structures: No destructive osseous lesions are seen. IMPRESSION: 1. No evidence of bowel obstruction. No evidence of free air 2. No evidence of acute diverticulitis. No evidence of acute appendicitis 3. Marked prostatomegaly. Possible seminal vesicle edema. Significant bladder wall thickening with in filtration of perivesical fat. Clinical correlation with regards to cystitis is recommended ACT 112: Negative or not required by law. Electronically signed by: Juan Booth M.D. 07/04/2020 1:51 PM
--- NOTE | 2020-07-04 14:56 | Ultrasound Report ---
ULTRASOUND TESTES AND SCROTUM CLINICAL HISTORY: Bilateral testicular pain COMPARISON STUDY: No priors. TECHNIQUE: Real-time, grayscale, and color Doppler sonography of the testes and scrotum is performed. Images are reviewed in the transverse and longitudinal planes. FINDINGS: The testes are normal in size and homogeneous in echotexture. The right testis measures 3.9 x 2.5 x 3 .8 cm and the left testis measures 4.0 x 2.3 x 2.5 cm. No intratesticular mass is seen. Tubular ectas ia of the rete testis is incidentally noted on the right. Testicular blood flow is normal and symmetr ic. Normal Doppler waveforms are identified in both testes. The epididymides appear prominent and hyperemic on color imaging, right greater than left. Bilateral epididymal head cysts measure up to 1.2 cm. No varicocele or hydrocele is seen. IMPRESSION: 1. Unremarkable sonographic appearance of the testes. 2. Findings suggest bilateral epididymitis, right greater than left. Clinical correlation will be req uired. ACT 112: Negative or not required by law. Electronically signed by: Liborio Jimenez M.D. 07/04/2020 2:54 PM
--- NOTE | 2020-07-04 15:26 | Electrocardiogram Report ---
Test Reason : Blood Pressure : / mmHG Vent. Rate : 071 BPM Atrial Rate : 071 BPM P-R Int : 176 ms QRS Dur : 108 ms QT Int : 412 ms P-R-T Axes : 065 014 035 degrees QTc Int : 447 ms Poor data quality, interpretation may be adversely affected Normal sinus rhythm Minimal voltage criteria for LVH, may be normal variant Borderline ECG When compared with ECG of 02-JUN-2018 21:19, Nonspecific T wave abnormality has replaced inverted T waves in Inferior leads Confirmed by Sedrick Kan ([id number]) on 07/04/2020 3:25:57 PM Referred By: REFERRED SELF Confirmed By:Rudy Kan
[2020-07-04] MEDS ORDERED: ACETAMINOPHEN 325 MG TAB PO STA (17:01)
--- NOTE | 2020-07-04 17:57 | History & Physical Report ---
Date of Service July 04, 2020 Assessment & Plan (1) Acute UTI: Complicated - Rocephin 2gm IV q24 - Await cultures - Hemodynamically stable - Continue Tamsulosin (2) Sepsis: WBC 13, NLR 9:1; Lactate 1.2, Tachycardic on arrival 109-111, Tachypneic o n arrival- resolved, - SIRS-3 Q-SOFA- 1 - As above - resuscitated with 2L crystalloid- can continue to orally hydrate - now with normal hemodynamics, RR decreased, No evidence of organ dysfunctio n (3) Acute epididymitis: Await cultures- treat as above - Prostatomegaly noted on CT scan- likely seeding both - Tylenol, Percocet, Morphine for pain - Ice packs to testicles as needed 20 min on 20 min off QID - Scrotal support if desired - no abscess seen on testicular ultrasound - no torsion - Consult urology if obstruction or not responding to IV antibiotics (4) Atrial flutter, paroxysmal: NSR- CHADS VASC 2- 0-1 - May have HTN that is controlled with his Metoprolol dosing (5) LVH (left ventricular hypertrophy): No acute needs (6) GERD (gastroesophageal reflux disease): Continue Omeprazole - Unsure if he has had EGD- (7) Hyperglycemia: Glucose on admission 112 no history of DM - HGB a1c in morning - No acute needs History of Present Illness Primary Care Provider: Vikki Kurtz, DO 65 YOM with past medical history of paroxysmal aflutter, LVH, HLD, obesity. He came in today for 1 day history of diarrhea, fevers, chills, urinary frequency, and bilateral testicular pain and redness. He does endorse that over the past couple weeks he has had difficulty urinating, but when he goes, he goes allot and frequently. Feels as though he is emptying his bladder well. He has noted blood in his urine this morning and has increased since he has been in the EMD. In the ER the patient was evaluated with CT scan of the abdomen and pelvis and bilateral testicular ultrasound. 2Liters of 0.9% saline, morphine 4 mg for his testicular pain and Given 1Gm Rocephin. Patient will be admitted for complicated UTI with bilateral epidytimits. Patient was found to to have aflutter in 2014, he has been on Flecainide since that time 50 mg BID with Lopressor 25 PO BID. Chart review shows-1 to 2 times per month with fluttering in his chest. His CHADVASC-2 is 0-1 ? HTN and has not been on anticoagulation. He is in NSR at this time. Allergies Allergy/AdvReac Type Severity Reaction Status Date / Time Penicillins Allergy Intermediate RASH Verified 07/10/20 08:03 Home Medications Medication Instructions Recorded Confirmed Type Men's 50 Plus Multivitamin 1 tab PO QDD 06/02/18 07/10/20 History ascorbic acid (vitamin C) [Vitamin 500 mg PO QDD 06/02/18 07/10/20 History C] tamsulosin [Flomax] 0.4 mg PO HS 06/02/18 07/10/20 History flecainide 100 mg tablet 100 mg PO Q12H #180 tab 01/05/20 07/10/20 Rx aspirin 81 mg PO HS 07/04/20 07/10/20 History omeprazole 40 mg PO DAILYBB 07/04/20 07/10/20 History metoprolol tartrate 25 mg PO DIRECTED #180 tab 07/08/20 07/10/20 Rx Past Med/Surg History Medical History Atrial flutter Creatinine elevation Leukocytosis Social History Smoking Status: Former smoker Hx Alcohol Use: No Hx Substance Use: No Preferred Language: Turkmen Communication Ability: Effective Visual Impairment: No Limitations Hearing Ability: Normal S[employer] Required: No Beliefs That Will Affect Care: None marital status: Current Living Situation: Spouse current occupational status: employed current occupation: [employer] at [employer] Feels Safe at Home: Yes Safety Concerns: Feels Safe At This Time Assistive Devices: None Review of Systems 2 Review of Systems: REVIEW OF SYSTEMS: Constitutional: No fever, sweats or chills Eyes: No diplopia, no worsening or blurred vision ENT: normal hearing, no trouble swallowing Respiratory: No cough, sputum, dyspnea at rest or on exertion Cardiovascular: (+) occasional palpitations No chest pain, tightness Abdomen: (+) diarrhea, No pain, nausea, vomiting, or constipation Musculoskeletal: No joint pain, calf pain, swelling Neurologic: No weakness, numbness/tingling, or balance problems Psychiatric: No anxiety or depression Skin: No rash or itch Physical Exam Physical Exam: PHYSICAL EXAM: General: awake, alert, no apparent distress Head: Normocephalic, atraumatic ENT: PERRL, EOMI, no pharyngeal exudate, mucous membranes moist Neuro: AAO x 3, speech clear and appropriate, strength intact bilaterally 5/5, sensation intact and equal all extremities and dermatomes, no pronator drift Chest: equal rise and fall of the chest, no accessory muscle use, no heaves or thrills, Clear to auscultation, on room air, Cardiac: Regular rate and rhythm, telemetry reviewed, skin warm dry, cap refill <3 seconds, peripheral pulses +2 no JVD, no murmur, no edema GI: NABS x 4 quadrants, soft, nontender to palpation, no rebound, guarding or tenderness : Spontaneously voiding, suprapubic pain, hematuria, no CVA tenderness, bilateral erythema and pain of testicles, not swollen or indurated. Extremities: Normal inspection, no peripheral edema or erythema, calfs nontender to palpation Psych: Normal mood and affect Skin: no rash or erythema, no surrounding erythema or roberts to groin, inguinal lymph nodes mild tenderness. Results & Data Results & Data ([facility]) Vital Signs (Past 12 Hours) Vital Signs Temp Pulse Pulse Resp BP BP Pulse Ox 07/04/20 17:00 37.4 C 87 18 174/87 H 97 07/04/20 15:51 97 07/04/20 15:50 37.8 C H 142/84 H 07/04/20 15:40 102 H 20 93 07/04/20 15:30 98 H 1 L 91 07/04/20 15:20 101 H 37 H 90 07/04/20 15:10 103 H 19 91 07/04/20 15:05 109 H 44 H 07/04/20 14:46 37.9 C H 74 18 144/74 H 95 07/04/20 14:20 92 H 41 H 95 07/04/20 14:11 95 07/04/20 14:01 94 H 33 H 97 07/04/20 14:00 37.9 C H 90 66 25 H 144/74 H 97 07/04/20 13:50 86 26 H 95 07/04/20 13:40 83 35 H 96 07/04/20 13:36 88 29 H 149/81 H 96 07/04/20 13:35 88 32 H 07/04/20 13:10 69 18 95 07/04/20 13:01 79 33 H 96 07/04/20 13:00 77 32 H 137/84 96 07/04/20 12:50 75 30 H 95 07/04/20 12:40 79 36 H 94 07/04/20 12:31 78 16 95 07/04/20 12:30 79 28 H 142/78 H 95 07/04/20 12:23 78 75 20 136/75 95 07/04/20 12:20 75 16 95 07/04/20 12:10 81 20 95 07/04/20 12:09 73 35 H 95 07/04/20 12:00 74 36 H 136/75 94 07/04/20 11:04 37.3 C 74 16 136/79 95 Laboratory Results Abnormal lab results 07/04/20 07/04/20 07/04/20 Range/Units 12:00 12:00 12:34 WBC 13.14 H (4.8-10.8) K/uL RBC 4.53 L (4.7-6.1) M/uL Hct 41.2 L (42-52) % Neut # (Auto) 11.94 H (1.4-6.5) K/uL Lymph # (Auto) 0.72 L (1.2-3.4) K/uL Immature Gran # (Auto) 0.03 H (0.00-0.02) K/uL INR (0.9-1.1) Chloride 109 H (98-107) mmol/L Glucose 120 H (70-99) mg/dl Total Bilirubin 1.3 H (0.2-1) mg/dl Alkaline Phosphatase 42 L (45-117) U/L Urine Appearance Turbid A (Clear) Urine Protein 3+ H (Negative) Urine Ketones 1+ H (Negative) Urine Blood 3+ H (Negative) Urine Nitrite Positive A (Negative) Ur Leukocyte Esterase 3+ H (Negative) Urine WBC (Auto) >30 H (0-5) /hpf Urine RBC (Auto) >30 H (0-4) /hpf U Epithel Cells (Auto) 5-10 H (0-5) /lpf Urine Bacteria (Auto) 4+ H (Negative) 07/04/20 Range/Units 12:34 WBC (4.8-10.8) K/uL RBC (4.7-6.1) M/uL Hct (42-52) % Neut # (Auto) (1.4-6.5) K/uL Lymph # (Auto) (1.2-3.4) K/uL Immature Gran # (Auto) (0.00-0.02) K/uL INR 1.2 H (0.9-1.1) Chloride (98-107) mmol/L Glucose (70-99) mg/dl Total Bilirubin (0.2-1) mg/dl Alkaline Phosphatase (45-117) U/L Urine Appearance (Clear) Urine Protein (Negative) Urine Ketones (Negative) Urine Blood (Negative) Urine Nitrite (Negative) Ur Leukocyte Esterase (Negative) Urine WBC (Auto) (0-5) /hpf Urine RBC (Auto) (0-4) /hpf U Epithel Cells (Auto) (0-5) /lpf Urine Bacteria (Auto) (Negative) Diagnostic Findings ULTRASOUND TESTES AND SCROTUM CLINICAL HISTORY: Bilateral testicular pain COMPARISON STUDY: No priors. TECHNIQUE: Real-time, grayscale, and color Doppler sonography of the testes and scrotum is performed. Images are reviewed in the transverse and longitudinal planes. FINDINGS: The testes are normal in size and homogeneous in echotexture. The right testis measures 3.9 x 2.5 x 3.8 cm and the left testis measures 4.0 x 2.3 x 2.5 cm. No intratesticular mass is seen. Tubular ectasia of the rete testis is incidentally noted on the right. Testicular blood flow is normal and symmetric. Normal Doppler waveforms are identified in both testes. The epididymides appear prominent and hyperemic on color imaging, right greater than left. Bilateral epididymal head cysts measure up to 1.2 cm. No varicocele or hydrocele is seen. IMPRESSION: 1. Unremarkable sonographic appearance of the testes. 2. Findings suggest bilateral epididymitis, right greater than left. Clinical correlation will be required. XR chest 1V portable CLINICAL HISTORY: SEPSIS COMPARISON STUDY: Chest radiograph June 02, 2018. FINDINGS: Lung volumes are normal. Linear bibasilar opacities reflect atelectasis. There is no consolidation. No evidence for pulmonary edema. Cardiac size is at the upper limits of normal. IMPRESSION: No acute cardiopulmonary findings. CT abd pelvis IV con only CLINICAL HISTORY: Lower abdominal pain and fever COMPARISON STUDY: August 2009 TECHNIQUE: The patient was scanned in a dynamic helical fashion during intravenous administration of 91 cc of Optiray 320 A dose lowering technique was utilized adhering to the principles of ALARA. CT DOSE: 895.49 mGycm FINDINGS: Lower chest: There are bibasilar dependent opacities, likely atelectatic. There is a small hiatal hernia. Liver: There is mild hepatic steatosis. No focal hepatic masses are visualized. The hepatic and portal veins appear patent. Gallbladder: Unremarkable. Spleen: Normal in size and attenuation. Pancreas: Unremarkable. Adrenal glands: Unremarkable. Kidneys: There is symmetric renal cortical enhancement. The kidneys are normal in size without hydronephrosis. Bowel: There are no transition zones to indicate bowel obstruction. There is no evidence of acute diverticulitis. The appendix appears normal. Peritoneum: There is no intraperitoneal free air or abdominal ascites. There are small fat-containing umbilical hernia. Vasculature: The abdominal aorta is normal in course and caliber. Adenopathy: None. Pelvic viscera: The prostate is significantly enlarged measuring 79 mm in AP diameter. The seminal vesicles appear somewhat bulbous and may be edematous. There is significant bladder wall thickening and infiltration of the perivesical fat. Clinical correlation with regards to a cystitis is recommended. Skeletal structures: No destructive osseous lesions are seen. IMPRESSION: 1. No evidence of bowel obstruction. No evidence of free air 2. No evidence of acute diverticulitis. No evidence of acute appendicitis 3. Marked prostatomegaly. Possible seminal vesicle edema. Significant bladder wall thickening with infiltration of perivesical fat. Clinical correlation with regards to cystitis is recommended Medications Administered Discontinued Medications Acetaminophen (Acetaminophen 325 Mg Tab) 650 mg PO NOW STA Stop: 07/04/20 17:02 Last Admin: 07/04/20 17:13 Dose: 650 mg Documented by: [id number] Sodium Chloride (Nss 1000ml) 2,000 mls @ 999 mls/hr IV .Q2H1M ONE Stop: 07/04/20 13:21 Last Infusion: 07/04/20 17:06 Dose: 0 mls/hr Documented by: [id number] Admin: 07/04/20 12:20 Dose: 999 mls/hr Documented by: [id number] Ceftriaxone Sodium (Rocephin) 1,000 mg in 50 mls @ 100 mls/hr IV NOW STA Stop: 07/04/20 13:54 Last Infusion: 07/04/20 17:05 Dose: 0 mls/hr Documented by: [id number] Admin: 07/04/20 14:12 Dose: 100 mls/hr Documented by: [id number] Ioversol (Optiray 320 100ml) 91 ml IV ONCE ONE Stop: 07/04/20 13:34 Last Admin: 07/04/20 13:34 Dose: 91 ml Documented by: [id number] Morphine Sulfate (Morphine Sulfate 4 Mg/Ml 1 Ml Carp\Vial) 4 mg IV NOW STA Stop: 07/04/20 11:22 Last Admin: 07/04/20 12:21 Dose: 4 mg Documented by: [id number] Morphine Sulfate (Morphine Sulfate 4 Mg/Ml 1 Ml Carp\Vial) 4 mg IV NOW STA Stop: 07/04/20 17:02 Last Admin: 07/04/20 17:12 Dose: 4 mg Documented by: [id number] Home Medications ascorbic acid (vitamin C) [Vitamin C] 500 mg PO QDD 06/02/18 [History Confirmed 07/04/20] heqypxyw-[id number]-[id number]-vit K-lycop [Men's 50 Plus Multivitamin] 1 tab PO QDD 06/02/18 [History Confirmed 07/04/20] tamsulosin [Flomax] 0.4 mg PO HS 06/02/18 [History Confirmed 07/04/20] flecainide 100 mg tablet 100 mg PO Q12H #180 tab 01/05/20 [Rx Confirmed 07/04/20] metoprolol tartrate 25 mg tablet 25 mg PO BID #180 tab 01/05/20 [Rx Confirmed 07/04/20] aspirin [Aspir-81] 81 mg PO HS 07/04/20 [History Confirmed 07/04/20] omeprazole 40 mg PO DAILYBB 07/04/20 [History Confirmed 07/04/20] ECG Additional Comments: Normal sinus rhythm Minimal voltage criteria for LVH, may be normal variant Borderline ECG When compared with ECG of 02-JUN-2018 21:19, Nonspecific T wave abnormality has replaced inverted T waves in Inferior leads Code Status & VTE Plan Code Status CODE: FULL VTE: SCD's, ambulation, Lovenox 40 mg q24 VTE Prophylaxis Plan VTE Prophylaxis will be ordered: Yes Supervising Physician Co-Signing Physician Notes During my face to face encounter, I obtained a history and physical examination. I reviewed above note and agree with it. I discussed plan of care with patient and CECIL Machuca. I answered all of the patient's questions. Patient admitted with acute UTI. Placed on abx. PG Care Time/CCT Total # of Minutes Spent Total Time Spent with Patient: Total time spent is greater than 50% in coordination of care (as documented) at patient's floor/unit and/or counseling patient: Coding Level of Care Code 19627 Initial Inpt Care Lvl 3 Diagnoses Acute UTI N39.0 Sepsis A41.9 Sepsis acute organ dysfunction status: unspecified Sepsis type: sepsis due to unspecified organism Acute epididymitis N45.1 Atrial flutter, paroxysmal I48.92 LVH (left ventricular hypertrophy) I51.7 GERD (gastroesophageal reflux disease) K21.9 Esophagitis presence: without esophagitis Hyperglycemia R73.9 (1) Sepsis Sepsis acute organ dysfunction status: unspecified Sepsis type: sepsis due to unspecified organism Qualified Code(s): A41.9 - Sepsis, unspecified organism (2) GERD (gastroesophageal reflux disease) Esophagitis presence: without esophagitis Qualified Code(s): K21.9 - Gastro- esophageal reflux disease without esophagitis
[2020-07-04] MEDS ORDERED: MoRPHine SULFATE 2 MG/ML CARP IV PRN (20:09)
[2020-07-04] MEDS ORDERED: ONDANSETRON INJ 2 MG/ML 2 ML VIAL IV PRN (20:09)
[2020-07-04] MEDS ORDERED: oxyCODONE/ACETAMINOPHEN 5mg/325mg TAB PO PRN (20:09)
[2020-07-04] MEDS ORDERED: POLYETHYLENE (MIRALAX) 17 GM PACK PO PRN (20:09)
[2020-07-04] MEDS: METOPROLOL TARTRATE 25 MG TAB PO SCH (20:44)
[2020-07-04] MEDS: FLECAINIDE ACETATE 100 MG TABLET PO SCH (20:45)
[2020-07-04] MEDS: ASPIRIN 81 MG ECTAB PO SCH (20:45)
[2020-07-04] MEDS: TAMSULOSIN HCL 0.4 MG CAP PO SCH (20:45)
[2020-07-04] MEDS: ENOXAPARIN INJ 40 MG/0.4 ML SYR SQ SCH (20:46)
[2020-07-04] MEDS: ACETAMINOPHEN 325 MG TAB PO PRN (23:49)
[2020-07-05] MEDS: ACETAMINOPHEN 325 MG TAB PO PRN ×2 (04:11→19:55)
[2020-07-05] MEDS: PANTOprazole 40 MG TAB PO SCH (05:19)
[2020-07-05 06:52] LABS: Hematocrit (blood only) 38.6 % (42-52); Hemoglobin 13.6 g/dL (14.0-18.0); Mean Corpuscular Hemoglobin 32.4 pg (25-34); Mean Corpuscular Hgb Conc 35.2 g/dL (32-36); Mean Corpuscular Volume 91.9 fL (80-100); RDW Coefficient of Variation 13.3 % (11.5-14.5); RDW Standard Deviation 44.8 fL (36.4-46.3); White Blood Count 11.73 K/uL (4.8-10.8)
[2020-07-05 07:09] LABS: Mean Platelet Volume 9.5 fL (7.4-10.4); Platelet Count 88 K/uL (130-400)
[2020-07-05 07:11] LABS: Basophils # (auto) 0.01 K/uL (0-0.2); Basophils % (auto) 0.1 %; Eosinophils # (auto) 0.01 K/uL (0-0.5); Eosinophils % (auto) 0.1 %; Immature Granulocytes # (auto) 0.04 K/uL (0.00-0.02); Immature Granulocytes % (auto) 0.3 %; Lymphocytes # (auto) 0.61 K/uL (1.2-3.4); Lymphocytes % (auto) 5.2 %; Monocytes # (auto) 0.78 K/uL (0.11-0.59); Monocytes % (auto) 6.6 %; Neutrophils # (auto) 10.28 K/uL (1.4-6.5); Neutrophils % (auto) 87.7 %; Platelet Estimate Decreased (Normal)
[2020-07-05 07:28] LABS: BUN Creatinine Ratio 20.7 (10-20); Calcium 8.6 mg/dl (8.5-10.1); Est GFR (African American) 88.1; Est GFR (Non-African American) 76.1; Magnesium 1.9 mg/dl (1.8-2.4); Potassium 3.9 mmol/L (3.5-5.1)
[2020-07-05 07:36] LABS: C Reactive Protein 23.5 mg/dl (0-0.29)
[2020-07-05 07:48] LABS: Estimated Average Glucose 123 mg/dl; Hemoglobin A1C 5.9 % (4.5-5.6)
[2020-07-05] MEDS: LACTATED RINGER'S 1,000 ML IV SCH ×2 (08:56→17:26)
[2020-07-05] MEDS: FLECAINIDE ACETATE 100 MG TABLET PO SCH ×2 (08:59→20:39)
[2020-07-05] MEDS: METOPROLOL TARTRATE 25 MG TAB PO SCH ×2 (08:59→20:39)
--- NOTE | 2020-07-05 09:46 | Hospitalist Progress Note ---
Date of Service July 05, 2020 Assessment & Plan (1) Acute UTI: Patient is 65 yo male with h/o paroxysmal atrial flutter (on Lopressor and Flecainide), HLD, obesity, BPH and LVH who was admitted to [facility] on 07/04/2020 for complicated UTI and epididymitis. Gram-Negative Bacteremia 2/2 Complicated UTI/Bilateral Epididymitis Urinary symptoms with scrotal pain/swelling/redness, elevated inflammatory markers, scrotum US showing bilateral epididymitis without abscess or torsion and CT abd/pelv showing cystitis, Blood/urine cx (+) for GNB. Currently hemodynamically stable - improved from yesterday. - started on Rocephin in the ED - continue with Rocephin 2g IV Q24H - continue full mIVFs with LR @140cc/hr - follow blood/urine cx for speciation/sensitivities, adjust abx as needed - PRN Tylenol/Percocet/Morphine, scrotal support and PRN ice packs for pain - consider Urology consult if worsening pain and/or signs of skin necrosis - trend CBC daily Thrombocytopenia/Elevated INR/Hyperbilirubinemia Platelets acutely down to 88, INR elevated at 1.2 although PT/PTT WNL, TBili 1.[address] LFTs otherwise [address]. CT abd/pelv showing hepatic steatosis. Suspect these abnormalities are due to the hepatic steatosis as well as sepsis/acute phase reaction. However given GNB Bacteremia will r/o DIC. - ordered DIC labs: elevated d-dimer ~2000, elevated fibrinogen 720, FDP 10-40 --> likely 2/2 bacteremia rather than DIC - Factor VIII pending - repeat CBC today, continue to trend daily - trend PT/INR and CMP Paroxysmal Atrial Flutter - NSR while hospitalized - CHADsVASc 0-1 - Continue home Lopressor/Flecainide BPH Chronic diagnosis, with prostatomegaly on CT abd/pelv. - continue home Flomax HLD LDL 35 during this hospitalization. Takes Rosuvastatin as home medication. - recommend stopping Rosuvastatin on discharge and f/u with PCP for further eval/management Prediabetes A1c 5.9 this hospitalization - counseled on lifestyle modifications GERD - Protonix 40mg PO daily per hospital formulary FEN/GI: Heart-healthy diet, LR @140cc/hr DVT Prophylaxis: Lovenox 40mg SQ daily Code Status: Full code Disposition: Med/surg with tele (2) Sepsis: (3) Acute epididymitis: (4) Atrial flutter, paroxysmal: (5) LVH (left ventricular hypertrophy): (6) GERD (gastroesophageal reflux disease): (7) Hyperglycemia: Admission and Anticipated Discharge Date Admission Date: July 04, 2020 Supervising Physician Co-Signing Physician Notes Attending attestation Pt seen and examined in concert with Dr. Grimes. In agreement with the documented findings as noted in the resident documentation with any exceptions or additions as noted here. Mild improvement in bilateral testicular discomfort. Resolution in suprapubic abdominal pain. Reports reduction in subjective fever. On examination, S1/S2 nl RRR no MCG. CTAB. Abd NT/ND BS+ve. Bilateral testicular TTP with minimal superficial scrotal TTP, no pain with elevation of cremaster. Complicated UTI/bilateral epididymitis - continue rocephin, f/u BCx. Consider uro consultation as noted above, but as long as CBC and clinical is improving continue abx. Thrombocytopenia/Elevated INR - f/u DIC labs and monitor for clinical changes, but clinical improvement reassuring. Repeat CBC this PM Atrial flutter, paroxysmal - continue chronic management, careful with fluid status BPH - on flomax - monitor urine output for retention during infection Else see resident documentation as noted. Subjective No acute events since being transferred to the floor. Patient reports several weeks of dysuria, increased urinary frequency/urgency, and one day of fever/chills, N/V, diarrhea, hematuria and swelling/redness/pain in scrotum before coming to the hospital. Reports persistent hematuria and scrotal pain/redness/swelling although mildly improved since arrival at hospital. Also reports suprapubic pain. Denies current symptoms of fever/chils, chest pain, pal pitations, SOB. Reports remote history of hernia repair with mesh. Review of Systems Review of Systems: Pertinent positives and negatives mentioned in HPI. Physical Exam Physical Exam: General: A&Ox3. NAD. Cooperative. HEENT: Atraumatic, normocephalic. Pulm: CTAB A&P. -wheezes, -rales, -rhonchi. Symmetrical chest rise. No increase work of breathing. No respiratory distress. Cardiac: RRR, -mrg. Radial pulses intact and symmetrical. Abdominal: soft, non-distended, NA BS x 4, mild suprapubic tenderness to palpation : scrotum significantly edematous, erythematous and severely tender to palpation. Cremasteric reflex intact and does not elicit increased pain Results & Data Results & Data ([facility]) Vital Signs (Past 12 Hours) Vital Signs Temp Pulse Pulse Resp BP BP Pulse Ox 07/05/20 08:00 37.1 C 75 18 124/73 93 07/05/20 07:35 66 07/05/20 03:07 37.7 C H 103 H 20 109/60 97 07/05/20 01:11 38.7 C H 07/04/20 23:23 37.9 C H 81 16 128/67 93 07/04/20 22:20 78 Resident Activity Tracking Resident Involvement: Resident Care Provided Care Provided: Adult Hospital Medicine (1) Sepsis Sepsis acute organ dysfunction status: unspecified Sepsis type: sepsis due to unspecified organism Qualified Code(s): A41.9 - Sepsis, unspecified organism (2) GERD (gastroesophageal reflux disease) Esophagitis presence: without esophagitis Qualified Code(s): K21.9 - Gastro- esophageal reflux disease without esophagitis
[2020-07-05 12:02] LABS: D Dimer 2110 ug/L FEU (0-500)
[2020-07-05 12:32] LABS: Fibrinogen 720 mg/dl (184-400)
[2020-07-05] MEDS: cefTRIAXone SODIUM 2,000 MG in DEXTROSE 5% 50 ML IV SCH (13:59)
[2020-07-05 17:14] LABS: Basophils # (auto) 0.02 K/uL (0-0.2); Basophils % (auto) 0.2 %; Eosinophils # (auto) 0.06 K/uL (0-0.5); Eosinophils % (auto) 0.6 %; Hematocrit (blood only) 38.3 % (42-52); Hemoglobin 13.6 g/dL (14.0-18.0); Immature Granulocytes # (auto) 0.05 K/uL (0.00-0.02); Immature Granulocytes % (auto) 0.5 %; Lymphocytes # (auto) 0.79 K/uL (1.2-3.4); Mean Corpuscular Hemoglobin 32.4 pg (25-34); Mean Corpuscular Hgb Conc 35.5 g/dL (32-36); Mean Corpuscular Volume 91.2 fL (80-100); Mean Platelet Volume 9.7 fL (7.4-10.4); Monocytes # (auto) 0.73 K/uL (0.11-0.59); Monocytes % (auto) 7.4 %; Neutrophils # (auto) 8.19 K/uL (1.4-6.5); Neutrophils % (auto) 83.3 %; Platelet Count 101 K/uL (130-400); RDW Coefficient of Variation 13.3 % (11.5-14.5); RDW Standard Deviation 44.4 fL (36.4-46.3); White Blood Count 9.84 K/uL (4.8-10.8)
[2020-07-05] MEDS: ASCORBIC ACID 500 MG TAB PO SCH (17:26)
[2020-07-05] MEDS: MULTIVITAMIN TAB PO SCH (17:26)
[2020-07-05] MEDS: TAMSULOSIN HCL 0.4 MG CAP PO SCH (20:39)
[2020-07-05] MEDS: ASPIRIN 81 MG ECTAB PO SCH (20:39)
[2020-07-05] MEDS: ENOXAPARIN INJ 40 MG/0.4 ML SYR SQ SCH (20:39)
[2020-07-06] MEDS: LACTATED RINGER'S 1,000 ML IV SCH ×2 (00:58→07:05)
[2020-07-06] MEDS: PANTOprazole 40 MG TAB PO SCH (06:18)
[2020-07-06] MEDS: ACETAMINOPHEN 325 MG TAB PO PRN ×3 (06:22→22:56)
[2020-07-06] MEDS: FLECAINIDE ACETATE 100 MG TABLET PO SCH ×2 (08:21→20:37)
[2020-07-06] MEDS: METOPROLOL TARTRATE 25 MG TAB PO SCH ×2 (08:21→20:38)
[2020-07-06 08:27] LABS: Basophils # (auto) 0.01 K/uL (0-0.2); Basophils % (auto) 0.1 %; Eosinophils # (auto) 0.06 K/uL (0-0.5); Eosinophils % (auto) 0.6 %; Hemoglobin 13.2 g/dL (14.0-18.0); Immature Granulocytes # (auto) 0.03 K/uL (0.00-0.02); Immature Granulocytes % (auto) 0.3 %; Lymphocytes # (auto) 0.55 K/uL (1.2-3.4); Lymphocytes % (auto) 5.4 %; Mean Corpuscular Hemoglobin 32.4 pg (25-34); Mean Corpuscular Hgb Conc 35.7 g/dL (32-36); Mean Corpuscular Volume 90.7 fL (80-100); Mean Platelet Volume 10.5 fL (7.4-10.4); Monocytes # (auto) 0.92 K/uL (0.11-0.59); Neutrophils # (auto) 8.62 K/uL (1.4-6.5); Neutrophils % (auto) 84.6 %; Platelet Count 100 K/uL (130-400); RDW Coefficient of Variation 13.1 % (11.5-14.5); RDW Standard Deviation 43.7 fL (36.4-46.3); Red Blood Count 4.08 M/uL (4.7-6.1); White Blood Count 10.19 K/uL (4.8-10.8)
[2020-07-06 08:35] LABS: Prothrombin Time 10.2 Seconds (9.0-12.0)
[2020-07-06 08:57] LABS: Albumin Level 2.7 gm/dl (3.4-5.0); BUN Creatinine Ratio 20.5 (10-20); Calcium 8.8 mg/dl (8.5-10.1); Creatinine Clr Calc Pharmacy 108.5 ml/min; Est GFR (African American) 109.1; Est GFR (Non-African American) 94.1; Potassium 3.7 mmol/L (3.5-5.1)
[2020-07-06 09:00] LABS: Albumin Globulin Ratio 0.7 (0.9-2); Bilirubin,Total 0.9 mg/dl (0.2-1); Globulin 3.7 gm/dl (2.5-4.0); Total Protein 6.4 gm/dl (6.4-8.2)
[2020-07-06] MEDS: cefTRIAXone SODIUM 2,000 MG in DEXTROSE 5% 50 ML IV SCH (13:28)
--- NOTE | 2020-07-06 15:45 | Hospitalist Progress Note ---
Date of Service July 06, 2020 Assessment & Plan (1) Acute UTI: Patient is 65 yo male with h/o paroxysmal atrial flutter (on Lopressor and Flecainide), HLD, obesity, BPH and LVH who was admitted to [facility] on 07/04/2020 for complicated UTI and epididymitis. Gram-Negative Bacteremia 2/2 Complicated UTI/Bilateral Epididymitis Urinary symptoms with scrotal pain/swelling/redness, elevated inflammatory markers, scrotum US showing bilateral epididymitis without abscess or torsion and CT abd/pelv showing cystitis, Blood/urine cx (+) for roberts-sensitive E. Coli. Currently hemodynamically stable but became febrile to 38.4C this afternoon. - started on Rocephin in the ED - continue with Rocephin 2g IV Q24H - stopped IVFs this AM, encourage PO intake - Urology consult placed - appreciate recs - PRN Tylenol/Percocet/Morphine, scrotal support and PRN ice packs for pain - trend CBC daily Thrombocytopenia/Elevated INR/Hyperbilirubinemia, resolving Yesterday, platelets acutely down to 88, INR elevated at 1.2 although PT/PTT WNL, TBili 1.3 although LFTs otherwise WNL. Today plts up to [address] abd/pelv showing hepatic steatosis. Suspect these abnormalities are due to the hepatic steatosis as well as sepsis/acute phase reaction. However given GNB Bacteremia will r/o DIC. - DIC labs: elevated d-dimer ~2000, elevated fibrinogen 720, FDP 10-40 --> likely 2/2 bacteremia rather than DIC - Factor VIII pending - trend CBC daily Paroxysmal Atrial Flutter - NSR while hospitalized - CHADsVASc 0-1 - Continue home Lopressor/Flecainide BPH Chronic diagnosis, with prostatomegaly on CT abd/pelv. - continue home Flomax HLD LDL 35 during this hospitalization. Takes Rosuvastatin as home medication. - recommend stopping Rosuvastatin on discharge and f/u with PCP for further eval/management Prediabetes A1c 5.9 this hospitalization - counseled on lifestyle modifications GERD - Protonix 40mg PO daily per hospital formulary FEN/GI: Heart-healthy diet DVT Prophylaxis: Lovenox 40mg SQ daily Code Status: Full code Disposition: Med/surg with tele (2) Sepsis: (3) Acute epididymitis: (4) Atrial flutter, paroxysmal: (5) LVH (left ventricular hypertrophy): (6) GERD (gastroesophageal reflux disease): (7) Hyperglycemia: Admission and Anticipated Discharge Date Admission Date: July 04, 2020 Supervising Physician Co-Signing Physician Notes Attending attestation I also saw the patient confirmed nash portions of the history and physical examination. Upon our exam around 930 this morning, the patient was afebrile and feeling quite well. He still complained of some scrotal discomfort, although this had been lessened with application of ice and scrotal elevation. Arrangements were underway for either home antibiotics or IV antibiotic administration through the medical outpatient unit; however, just before the planned discharge, we were advised by nursing that the patient had spiked a temperature of 38.4 C. Exam 137/78, 70, 18, 38.4 C, 96% on room air Alert and oriented. Heart rate is regular upon my exam, auscultated rate 70 Respirations are nonlabored Abdomen nontender Scrotum is swollen and erythematous, uncomfortable to touch, but less so than yesterday according to the patient. Data WBC 10.19, hemoglobin 13.2 Platelet count 100 Ultrasound dated 07/04 demonstrated findings consistent with bilateral epididymitis, right greater than left. CT scan of the abdomen pelvis dated 07/04 demonstrated no evidence of bowel obstruction, no evidence of diverticulitis; marked prostatomegaly. Blood culture dated 07/04 shows pansensitive E. coli; urine culture collected the same date shows similar. Impression and plan Complicated UTI/bilateral epididymitis Sepsis, gram-negative Thrombocytopenia, improving Paroxysmal atrial flutter BPH Given the patient's continued fever, decided to continue care in the hospital. Consult urology Continue Rocephin Recheck CBC, CMP in AM Pain control as needed Subjective No acute events overnight. Temperature 37.8 several times overnight but improved with PRN Tylenol. Denies current symptoms of fever/chils, chest pain, palpitations, SOB. Review of Systems Review of Systems: Pertinent positives and negatives mentioned in HPI. Physical Exam Physical Exam: General: A&Ox3. NAD. Cooperative. HEENT: Atraumatic, normocephalic. Pulm: CTAB A&P. -wheezes, -rales, -rhonchi. Symmetrical chest rise. No increase work of breathing. No respiratory distress. Cardiac: RRR, -mrg. Radial pulses intact and symmetrical. Abdominal: soft, non-distended, NA BS x 4, mild suprapubic tenderness to palpation : scrotum significantly edematous, erythematous and severely tender to palpation. Cremasteric reflex intact and does not elicit increased pain - stable exam from yesterday Results & Data Results & Data ([facility]) Vital Signs (Past 12 Hours) Vital Signs Temp Pulse Resp BP BP Pulse Ox 07/06/20 15:12 38.4 C H 70 18 137/78 96 07/06/20 14:43 37.3 C 61 20 145/79 H 95 07/06/20 12:22 37.3 C 61 20 145/79 H 95 07/06/20 08:16 37.1 C 73 20 145/79 H 94 07/06/20 07:30 37.1 C 85 20 152/80 H 95 07/06/20 06:21 37.5 C Resident Activity Tracking Resident Involvement: Resident Care Provided Care Provided: Adult Hospital Medicine (1) Sepsis Sepsis acute organ dysfunction status: unspecified Sepsis type: sepsis due to unspecified organism Qualified Code(s): A41.9 - Sepsis, unspecified organism (2) GERD (gastroesophageal reflux disease) Esophagitis presence: without esophagitis Qualified Code(s): K21.9 - Gastro-esophageal reflux disease without esophagitis
[2020-07-06] MEDS ORDERED: SALINE NASAL 225 SPRAYS, GENTAMICIN SULFATE 60 MG, BARCODE IDENTIFIER 0 EA PRN (16:17)
[2020-07-06] MEDS: ASCORBIC ACID 500 MG TAB PO SCH (16:20)
[2020-07-06] MEDS: MULTIVITAMIN TAB PO SCH (16:20)
[2020-07-06] MEDS ORDERED: SODIUM CHLORIDE 0.65% NA SOLN 45 ML (OCEAN) PRN (16:25)
[2020-07-06] MEDS: ENOXAPARIN INJ 40 MG/0.4 ML SYR SQ SCH (20:37)
[2020-07-06] MEDS: ASPIRIN 81 MG ECTAB PO SCH (20:37)
[2020-07-06] MEDS: TAMSULOSIN HCL 0.4 MG CAP PO SCH (20:38)
--- NOTE | 2020-07-06 21:57 | Urology Consultation ---
Date of Consultation July 06, 2020 Assessment & Plan (1) Epididymitis: Patient's epididymitis may be related to his underlying urinary tract infection: As noted his urine and blood culture grew pansensitive E. coli for which he is receiving Rocephin. Would recommend continuing this modality Continue to provide analgesics Provide antiemetics if needed Support may be beneficial to help alleviate his pain As there is no evidence of testicular torsion or scrotal abscess no surgical in dication is required at this time We will continue following while patient is hospitalized Attending note: Agree with above. Plan for outpatient follow-up to reassess. Will consider work-up for complicated UTI with epididymitis History of Present Illness Reason for Consultation: Epididymitis Attending Physician: Abimael Neal DO History of Present Illness This 65-year-old male who was admitted to the hospital secondary to scrotal pain and swelling. Patient notes this problem began approximately 2 to 3 days ago. Patient does note that when he is feeling well he does not have any urinary hesitancy or decreased strength of urinary stream. He feels as though is when he does urinate he empties his bladder completely. Since this problem began as stated above he has had fevers as well as shakes and chills. He is also admitted to intermittent bouts of hematuria. He notes that he is sexually active but has been approximately 4 years since he has last had sexual relations. He denies any penile discharge. Patient notes that his scrotum is painful to touch. He does note some relief with elevation of his scrotum. He denies any nausea vomiting. He denies any abdominal pain. Although the patient had minimal urinary symptoms before his problem began he does note that since this issue started he has had urinary frequency with very little in the way of urine stream. Patient has had labs and imaging that were independent reviewed by myself. Patient did have a scrotal ultrasound that showed no evidence of testicular torsion. There was edema and swelling of the epididymis suggestive of epididym itis. There is no evidence of abscess on this modality. CBC revealed the patient's hemoglobin was 13.2 and hematocrit was 37.0. Patient's platelet count was 100,000 and his white blood cell count was within normal range. Chemistry profile revealed his sodium, potassium, BUN, and creatinine were all within normal range. Urine culture showed pansensitive E. coli. He did have a blood culture that also showed pansensitive E. coli. At the time of my exam the patient was resting comfortably in bed he was in no distress. Allergies Allergy/AdvReac Type Severity Reaction Status Date / Time Penicillins Allergy Intermediate RASH Verified 07/04/20 13:13 Home Medications Medication Instructions Recorded Confirmed Type Men's 50 Plus Multivitamin 1 tab PO QDD 06/02/18 07/04/20 History ascorbic acid (vitamin C) [Vitamin 500 mg PO QDD 06/02/18 07/04/20 History C] tamsulosin [Flomax] 0.4 mg PO HS 06/02/18 07/04/20 History flecainide 100 mg tablet 100 mg PO Q12H #180 tab 01/05/20 07/04/20 Rx metoprolol tartrate 25 mg tablet 25 mg PO BID #180 tab 01/05/20 07/04/20 Rx aspirin 81 mg PO HS 07/04/20 07/04/20 History omeprazole 40 mg PO DAILYBB 07/04/20 07/04/20 History Patient History Medical History (Updated 07/06/20 @ 21:56 by Avtar Arias PA-C) Atrial flutter Creatinine elevation Social History Smoking Status: Former smoker Hx Alcohol Use: No Hx Substance Use: No Preferred Language: Yoruba Communication Ability: Effective Visual Impairment: No Limitations Hearing Ability: Normal Rrt Required: No Beliefs That Will Affect Care: None marital status: Current Living Situation: Spouse current occupational status: employed current occupation: [employer] at [employer] Feels Safe at Home: Yes Assistive Devices: None Review of Systems Constitutional: + fever and + chills Eyes: no diplopia Ear, Nose, Mouth, Throat: no ear pain Respiratory: no cough and no dyspnea Cardiovascular: no chest pain Gastrointestinal: no abdominal pain, no nausea and no vomiting Genitourinary: + difficulty urinating, + urinary hesitancy, + hematuria and + scrotal swelling; no penile discharge Musculoskeletal: no back pain Integumentary: no rash Neurologic: no localized weakness Physical Exam Constitutional: well developed and well nourished; no acute distress Eyes: no conjunctival abnormality ENMT: Ears: no hearing impairment Neck: trachea midline Respiratory: normal respiratory effort, lungs clear to auscultation Cardiovascular: Rate/Rhythm: regular rate and regular rhythm Gastrointestinal (Abdomen): Percussion/Palpation: abdomen soft; abdomen nontender Musculoskeletal: No calf tenderness Skin: no rashes, warm and dry Neurologic: moves all extremities Psychiatric: A+Ox3, euthymic affect Genitourinary: The patient scrotum was examined. There are no cuts, excoriations, or open sores. There are no areas of eschar. There is no crepitus in soft tissue. Patient scrotum was noted to be erythematous with some slight warmth. Area was notably swollen and was painful to touch. Results & Data ([facility]) Vital Signs (Past 12 Hours) Vital Signs Temp Pulse Resp BP BP Pulse Ox 07/06/20 19:00 37.5 C 70 20 129/74 95 07/06/20 15:12 38.4 C H 70 18 137/78 96 07/06/20 14:43 37.3 C 61 20 145/79 H 95 07/06/20 12:22 37.3 C 61 20 145/79 H 95 PG Care Time/CCT Total # of Minutes Spent Total Time Spent with Patient: Total time spent is greater than 50% in coordination of care (as documented) at patient's floor/unit and/or counseling patient: Coding Level of Care Code 83338 Inpt Consult Level 5 Diagnoses Epididymitis N45.1
[2020-07-07 06:20] LABS: Basophils # (auto) 0.02 K/uL (0-0.2); Basophils % (auto) 0.2 %; Eosinophils # (auto) 0.13 K/uL (0-0.5); Eosinophils % (auto) 1.5 %; Hematocrit (blood only) 39.1 % (42-52); Hemoglobin 13.6 g/dL (14.0-18.0); Immature Granulocytes # (auto) 0.03 K/uL (0.00-0.02); Immature Granulocytes % (auto) 0.3 %; Mean Corpuscular Hemoglobin 31.8 pg (25-34); Mean Corpuscular Hgb Conc 34.8 g/dL (32-36); Mean Corpuscular Volume 91.4 fL (80-100); Monocytes % (auto) 10.1 %; Neutrophils # (auto) 7.02 K/uL (1.4-6.5); Neutrophils % (auto) 78.9 %; Platelet Count 115 K/uL (130-400); RDW Coefficient of Variation 13.2 % (11.5-14.5); RDW Standard Deviation 44.2 fL (36.4-46.3); Red Blood Count 4.28 M/uL (4.7-6.1)
[2020-07-07 06:59] LABS: BUN Creatinine Ratio 20.4 (10-20); Calcium 8.3 mg/dl (8.5-10.1); Est GFR (Non-African American) 93.2; Potassium 3.7 mmol/L (3.5-5.1)
[2020-07-07] MEDS: PANTOprazole 40 MG TAB PO SCH (07:10)
[2020-07-07] MEDS: METOPROLOL TARTRATE 25 MG TAB PO SCH (07:10)
[2020-07-07] MEDS: FLECAINIDE ACETATE 100 MG TABLET PO SCH ×2 (07:10→20:09)
[2020-07-07 14:16] LABS: Chlamydia Trach RNA NOT DETECTED (NOT DETECTED); GC (Neis gonorrhoeae) RNA NOT DETECTED (NOT DETECTED)
[2020-07-07] MEDS: cefTRIAXone SODIUM 2,000 MG in DEXTROSE 5% 50 ML IV SCH (14:16)
--- NOTE | 2020-07-07 15:29 | Hospitalist Progress Note ---
Date of Service July 07, 2020 Assessment & Plan (1) Acute UTI: Patient is 65 yo male with h/o paroxysmal atrial flutter (on Lopressor and Flecainide), HLD, obesity, BPH and LVH who was admitted to [facility] on 07/04/2020 for complicated UTI and epididymitis. Gram-Negative Bacteremia 2/2 Complicated UTI/Bilateral Epididymitis Urinary symptoms with scrotal pain/swelling/redness, elevated inflammatory markers, scrotum US showing bilateral epididymitis without abscess or torsion and CT abd/pelv showing cystitis, Blood and urine cultures both positive for pansensitive E. coli. -Currently hemodynamically stable -Patient spiked a fever twice on 07/06; concern for prostatitis vs abscess vs other; will observe patient overnight -Continue with Rocephin 2g IV Q24H, with likely 4-6 week total abx course to cover for prostatitis -IVF discontinued 07/06; encourage PO intake -Urology consult placed - appreciate recs -PRN Tylenol/Percocet/Morphine, scrotal support and PRN ice packs for pain -Trend CBC daily Paroxysmal Atrial Flutter -CHADsVASc score: 0 -Patient had a 1.5 hour episode of dysrhythmia overnight with a few brief runs of vtach - patient was hemodynamically stable, felt mild palpitations but otherwise asymptomatic -Continue metoprolol tartrate AM dose at 25mg qAM, increasing PM dose to 37.5mg qhs -Continue flecainide 100mg bid Thrombocytopenia/Elevated INR/Hyperbilirubinemia- resolving -Likely due to acute illness as well as hepatic steatosis (seen on CT abd/pelvis) -Platelet count improving, INR wnl; elevated factor VIII - DIC unlikely -Trend CBC, CMP BPH -Chronic diagnosis -Prostatomegaly on CT abd/pelv. -Continue home Flomax HLD -LDL 35 during this hospitalization -Takes Rosuvastatin as home medication -Recommend stopping Rosuvastatin on discharge and f/u with PCP Prediabetes -A1c 5.9 this hospitalization -Counseled on lifestyle modifications GERD -Patient's home omeprazole substituted with protonix 40mg PO qd per hospital formulary FEN/GI: Heart-healthy diet DVT Prophylaxis: Lovenox 40mg SQ daily Code Status: Full code Disposition: Med/surg with tele (2) Sepsis: (3) Acute epididymitis: (4) Atrial flutter, paroxysmal: (5) LVH (left ventricular hypertrophy): No acute needs (6) GERD (gastroesophageal reflux disease): (7) Hyperglycemia: Admission and Anticipated Discharge Date Admission Date: July 04, 2020 Supervising Physician Co-Signing Physician Notes Attending attestation I also saw the patient concur with the resident physician and confirmed nash portions of the history and physical examination. I agree with the impression and plan as noted in the resident documentation. Yesterday and overnight, the patient again had a fever. Overnight he also had about a 80-minute period of atrial flutter; there is also some strips which appear to be atrial tachycardia, perhaps short burst of SVT, and a 4 or 5 beat run of V. tach. The patient notes that he was sleeping and really did not appreciate the dysrhythmias. In talking to him today more specifically about his baseline, he does note that sometimes he will awaken at night to go to the bathroom and be short of breath - he wonders if he is in a flutter at this time. Exam 113/71, 60, 20, 36.8, 95% on room air Alert and oriented. Heart rate is regular upon my exam, auscultated rate 70 Respirations are nonlabored Abdomen nontender Scrotum is swollen and erythematous; it seems less tender than yesterday. He has some mild suprapubic tenderness with palpation. Data White blood cell count 8.9, hemoglobin 13.6, platelets 115 Ultrasound dated 07/04 demonstrated findings consistent with bilateral epididymitis, right greater than left. CT scan of the abdomen pelvis dated 07/04 demonstrated no evidence of bowel obstruction, no evidence of diverticulitis; marked prostatomegaly; thickened bladder wall. Blood culture dated 07/04 shows pansensitive E. coli; urine culture collected the same date shows similar. Impression and plan Complicated UTI/bilateral epididymitis Sepsis, gram-negative Atrial flutter, paroxysmal Thrombocytopenia, improving Paroxysmal atrial flutter BPH 1) The patient is on appropriate antimicrobial therapy, although we kept him in an additional day due to recurrent fevers. In reviewing the patient's imaging - he has an epididymitis, thickening of the bladder wall indicating a more co mplicated UTI, as well as an enlarged prostate and I wonder if he has an element of prostatitis as well. Considering all this, it may explain the recurrent fevers despite the appropriate antimicrobial therapy. I discussed with the patient today that he probably just needs a little bit more time. Plans are in place to continue IV Rocephin at home for at least 7 days; he would then have outpatient reevaluation at which time we can consider switching to oral therapy. With regards to oral therapy -and the likelihood of prostatic involvement -he will likely need extended course of oral therapy to achieve at least 30 days of antibiotics. 2) Second major issue is the atrial flutter and other atrial dysrhythmias noted overnight. He has a history of paroxysmal atrial flutter but is not on ant icoagulation as his CHADS score is 0. His increased atrial irritability would not be surprising in the setting of acute infection, however, in talking to him today, I wonder if he now just has increased dysrhythmic burden at baseline as well. Will increase beta-kb dose at night Recommend extended event monitor once infection is resolved to redefine his dysrhythmic burden Monitor on telemetry overnight Subjective Patient feels well today, but notes he spiked another fever (38.3) around 11pm last night. Endorses sweats and increased scrotal swelling at that time, both of which resolved after about an hour. This morning he reports minimal symptoms, complaining only of suprapubic and scrotal pain, which have improved from yesterday. Patient also reports he was notified around 4am today of a dysrhythmia noticed on cardiac monitoring; he noticed a slight "flutter" in his chest at the time but was otherwise asymptomatic and did not have trouble falling back to sleep. Denies current symptoms of fever/chills, chest pain, palpitations, SOB, nausea, vomiting, or back pain. Denies increased abdominal or scrotal pain with urination or with bowel movements. Review of Systems Review of Systems: See HPI Physical Exam Physical Exam: Constitutional: well-appearing, no acute distress, laying comfortably in bed CV: heart rate 65-70 during exam, rhythm regular, no murmur appreciated, extremities well-perfused Resp: no increased work of breathing GI: soft, nondistended, tender to suprapubic palpation, nontender to palpation elsewhere, BS present : scrotum erythematous, edematous, tender Results & Data Results & Data ([facility]) Vital Signs (Past 12 Hours) Vital Signs Temp Pulse Pulse Resp BP BP Pulse Ox 07/07/20 15:26 66 07/07/20 11:48 37.0 C 60 20 119/71 95 07/07/20 07:42 37.0 C 85 20 124/74 94 07/07/20 07:38 84 07/07/20 05:21 37.2 C 67 18 136/72 93 07/07/20 04:00 37.2 C 64 18 120/68 95 Resident Activity Tracking Resident Involvement: Resident Care Provided Care Provided: Adult Hospital Medicine (1) Sepsis Sepsis acute organ dysfunction status: unspecified Sepsis type: sepsis due to unspecified organism Qualified Code(s): A41.9 - Sepsis, unspecified organism (2) GERD (gastroesophageal reflux disease) Esophagitis presence: without esophagitis Qualified Code(s): K21.9 - Gastro- esophageal reflux disease without esophagitis
[2020-07-07] MEDS: MULTIVITAMIN TAB PO SCH (16:28)
[2020-07-07] MEDS: ASCORBIC ACID 500 MG TAB PO SCH (16:28)
[2020-07-07] MEDS: ASPIRIN 81 MG ECTAB PO SCH (20:10)
[2020-07-07] MEDS: TAMSULOSIN HCL 0.4 MG CAP PO SCH (20:10)
[2020-07-07] MEDS: ENOXAPARIN INJ 40 MG/0.4 ML SYR SQ SCH (20:10)
[2020-07-07] MEDS ORDERED: METOPROLOL TARTRATE 25 MG TAB PO SCH (21:00)
[2020-07-08] MEDS: PANTOprazole 40 MG TAB PO SCH (05:56)
[2020-07-08 06:26] LABS: Basophils # (auto) 0.03 K/uL (0-0.2); Basophils % (auto) 0.5 %; Eosinophils # (auto) 0.19 K/uL (0-0.5); Eosinophils % (auto) 3.2 %; Hematocrit (blood only) 40.1 % (42-52); Hemoglobin 14.1 g/dL (14.0-18.0); Immature Granulocytes # (auto) 0.06 K/uL (0.00-0.02); Lymphocytes # (auto) 0.96 K/uL (1.2-3.4); Lymphocytes % (auto) 16.1 %; Mean Corpuscular Hgb Conc 35.2 g/dL (32-36); Mean Corpuscular Volume 90.9 fL (80-100); Mean Platelet Volume 10.2 fL (7.4-10.4); Monocytes # (auto) 0.84 K/uL (0.11-0.59); Monocytes % (auto) 14.1 %; Neutrophils # (auto) 3.88 K/uL (1.4-6.5); Neutrophils % (auto) 65.1 %; Platelet Count 134 K/uL (130-400); RDW Coefficient of Variation 13.2 % (11.5-14.5); Red Blood Count 4.41 M/uL (4.7-6.1); White Blood Count 5.96 K/uL (4.8-10.8)
[2020-07-08 06:55] LABS: BUN Creatinine Ratio 18.4 (10-20); Calcium 8.5 mg/dl (8.5-10.1); Creatinine Clr Calc Pharmacy 96.6 ml/min; Est GFR (African American) 103.6; Est GFR (Non-African American) 89.4
[2020-07-08 06:58] LABS: Albumin Globulin Ratio 0.7 (0.9-2); Bilirubin,Total 0.7 mg/dl (0.2-1); Globulin 4.2 gm/dl (2.5-4.0); Total Protein 7.2 gm/dl (6.4-8.2)
--- NOTE | 2020-07-08 07:32 | Electrocardiogram Report ---
Test Reason : Blood Pressure : / mmHG Vent. Rate : 096 BPM Atrial Rate : 122 BPM P-R Int : 000 ms QRS Dur : 114 ms QT Int : 404 ms P-R-T Axes : 091 -11 023 degrees QTc Int : 510 ms Sinus rhythm with atrial tachycardia Minimal voltage criteria for LVH, may be normal variant Prolonged QT Abnormal ECG When compared with ECG of 04-JUL-2020 11:30, Atrial tachycardia is now Present QT has lengthened Confirmed by Andrei Haynes ([id number]) on 07/08/2020 7:32:17 AM Referred By: REFERRED SELF Confirmed By:Andrei Haynes
--- NOTE | 2020-07-08 07:33 | Electrocardiogram Report ---
Test Reason : Blood Pressure : / mmHG Vent. Rate : 094 BPM Atrial Rate : 094 BPM P-R Int : 172 ms QRS Dur : 112 ms QT Int : 414 ms P-R-T Axes : 060 -09 018 degrees QTc Int : 517 ms Sinus rhythm with marked sinus arrhythmia with Atrial tachycardia Minimal voltage criteria for LVH, may be normal variant Prolonged QT Abnormal ECG When compared with ECG of 07-JUL-2020 05:33, No significant change Confirmed by Andrei Haynes ([id number]) on 07/08/2020 7:33:11 AM Referred By: REFERRED SELF Confirmed By:Andrei Haynes
[2020-07-08] MEDS: FLECAINIDE ACETATE 100 MG TABLET PO SCH (08:41)
[2020-07-08] MEDS ORDERED: METOPROLOL TARTRATE 25 MG TAB PO SCH (09:00)
--- NOTE | 2020-07-08 09:43 | Discharge Summary ---
Date of Service July 08, 2020 Admission HPI Per Admitting Provider 65 YOM with past medical history of paroxysmal aflutter, LVH, HLD, obesity. He came in today for 1 day history of diarrhea, fevers, chills, urinary frequency, and bilateral testicular pain and redness. He does endorse that over the past couple weeks he has had difficulty urinating, but when he goes, he goes allot and frequently. Feels as though he is emptying his bladder well. He has noted blood in his urine this morning and has increased since he has been in the EMD. In the ER the patient was evaluated with CT scan of the abdomen and pelvis and bilateral testicular ultrasound. 2Liters of 0.9% saline, morphine 4 mg for his testicular pain and Given 1Gm Rocephin. Patient will be admitted for complicated UTI with bilateral epidytimits. Patient was found to to have aflutter in 2014, he has been on Flecainide since that time 50 mg BID with Lopressor 25 PO BID. Chart review shows-1 to 2 times per month with fluttering in his chest. His CHADVASC-2 is 0-1 ? HTN and has not been on anticoagulation. He is in NSR at this time. Admission Exam Per Admitting Provider PHYSICAL EXAM: General: awake, alert, no apparent distress Head: Normocephalic, atraumatic ENT: PERRL, EOMI, no pharyngeal exudate, mucous membranes moist Neuro: AAO x 3, speech clear and appropriate, strength intact bilaterally 5/5, sensation intact and equal all extremities and dermatomes, no pronator drift Chest: equal rise and fall of the chest, no accessory muscle use, no heaves or thrills, Clear to auscultation, on room air, Cardiac: Regular rate and rhythm, telemetry reviewed, skin warm dry, cap refill <3 seconds, peripheral pulses +2 no JVD, no murmur, no edema GI: NABS x 4 quadrants, soft, nontender to palpation, no rebound, guarding or tenderness : Spontaneously voiding, suprapubic pain, hematuria, no CVA tenderness, bilateral erythema and pain of testicles, not swollen or indurated. Extremities: Normal inspection, no peripheral edema or erythema, calfs nontender to palpation Psych: Normal mood and affect Skin: no rash or erythema, no surrounding erythema or roberts to groin, inguinal lymph nodes mild tenderness. Principal Diagnosis Gram Negative Bacteremia 2/2 UTI with Epididymitis Discharge Exam General: A&Ox3. NAD. Cooperative. HEENT: Atraumatic, normocephalic. Pulm: CTAB A&P. -wheezes, -rales, -rhonchi. Symmetrical chest rise. No increase work of breathing. No respiratory distress. Cardiac: RRR, -mrg. Radial pulses intact and symmetrical. Abdominal: soft, non-distended, NA BS x 4, mild suprapubic tenderness to palpation : scrotum significantly edematous, erythematous and mildly tender to palpation. Cremasteric reflex intact and does not elicit increased pain - improved exam from yesterday Rectal: no tenderness on palpation of prostate, prostate is enlarged but not boggy Discharge Data Allergies Allergy/AdvReac Type Severity Reaction Status Date / Time Penicillins Allergy Intermediate RASH Verified 07/04/20 13:13 Consultations 07/04/20 15:13 ED Decision to Admit Stat 07/06/20 16:29 Consult Urology Routine Ordered Studies 07/04/20 11:19 CT abd pelvis IV con only Stat 07/04/20 13:59 US scrotum/testicle Stat Hospital Course (1) Acute UTI: Patient is 65 yo male with h/o paroxysmal atrial flutter (on Lopressor and Flecainide), HLD, obesity, BPH and LVH who was admitted to [facility] on 07/04/2020 for complicated UTI and epididymitis. Gram-Negative Bacteremia 2/2 Complicated UTI/Bilateral Epididymitis Urinary symptoms with scrotal pain/swelling/redness, elevated inflammatory m arkers, scrotum US showing bilateral epididymitis without abscess or torsion and CT abd/pelv showing cystitis, Blood and urine cultures both positive for pansensitive E. coli. No prostate tenderness on rectal exam, making comorbid prostatitis unlikely. -Started on Rocephin 2g IV Q24H on 07/05 (today is day 4), continue 10 more days after discharge for total 2 weeks therapy -Urology consulted - agree with abx treatment -continue PRN Tylenol, scrotal support and PRN ice packs for pain Paroxysmal Atrial Flutter -Patient had a 1.5 hour episode of dysrhythmia overnight with a few brief runs of vtach - patient was hemodynamically stable, felt mild palpitations but otherwise asymptomatic -Continue metoprolol tartrate AM dose at 25mg qAM, increasing PM dose to 37.5mg qhs -Continue flecainide 100mg bid - f/u with [employer] Appliance Installer after discharge for possible 30-day monitor and further eval/management -CHADsVASc score: 0 Thrombocytopenia/Elevated INR/Hyperbilirubinemia- resolved -Likely due to sepsis as well as hepatic steatosis (seen on CT abd/pelvis) -Platelet count improving, INR wnl; elevated factor VIII - DIC unlikely BPH -Chronic diagnosis -Prostatomegaly on CT abd/pelv. -Continue home Flomax HLD -LDL 35 during this hospitalization -Takes Rosuvastatin as home medication -Recommend stopping Rosuvastatin on discharge and f/u with PCP Prediabetes -A1c 5.9 this hospitalization -Counseled on lifestyle modifications GERD - Continue home Omemprazole after discharge (2) Sepsis: (3) Acute epididymitis: (4) Atrial flutter, paroxysmal: (5) LVH (left ventricular hypertrophy): (6) GERD (gastroesophageal reflux disease): (7) Hyperglycemia: Total Time Total Time Spent Total Time Spent (In Minutes): 40 minutes Total Time Includes: Examination of the Patient, Discharge Planning and Medication Reconciliation Discharge Plan Discharge Items Patient Disposition: Home - Home Health Services Reason For Visit: testicular pain Discharge Diagnosis: Gram Negative Bacteremia Complex UTI Bilateral Epididymitis Activity: Per Instructions section Non-emergency contact: Primary Care Provider Call non-emergency contact if: you have any medication questions, your symptoms worsen, your pain is not controlled and you have a fever Follow-up/Referrals: Andrei Haynes MD [Physician] - Mohsen Casiano DO [Physician] - (PLEASE CALL THE OFFICE THURSDAY MORNING TO SCHEDULE A FOLLOW-UP DISCHARGE APPOINTMENT) Vikki Kurtz DO [Primary Care Provider] - Federico Grimes MD [Resident] - 07/11/20 10:10 am Diet: Regular Addtl Attending Provider Instructions: You were admitted to [facility] on 07/04/2020 for a urinary tract infection and an infection of the testicles called Epididymitis. This infection spread to your blood as well. You were started on an IV antibiotic called Ceftriaxone for the infection, and you seemed to respond well to it. Your testicular pain slightly improved during the hospitalization and your fevers improved as well, although it took the fevers a day or two to stop spiking. You also had several temporary runs of abnormal heart rhythms while in the hospital; thankfully these did not cause you any symptoms. However, we increased your Metoprolol night dose to 37.5mg which seemed to help - you should continue taking the Metoprolol at this dose which is 25mg in the morning and 37.5mg in the evening. You should follow up with your Gas Appliance Installer after discharge. You will be discharged on 07/08/2020 in improved, stable condition. You will leave with an IV in place in your arm, so that you can continue the IV Rocephin for 10 more days. This will bring you to a total of 2 weeks of antibiotics, which should be enough time to completely treat the infection. You can also take Tylenol as needed for your testicular pain, and you can use ice packs as well. You will have a follow-up appointment on 07/11 at 10:10am with Dr. Grimes (the resident physician who saw you in the hospital). Dr. Kurtz will continue to see you as usual after this appointment. Additionally, you should follow up with the Urologist after discharge as well. You should also stop taking your Rosuvastatin, as your cholesterol was very low during this hospitalization. Otherwise you should continue to take all of your medications as prescribed. We hope you continue to feel better. It was a pleasure to help provide your care while you were hospitalized. Pending Studies at Discharge: No Stand-Alone Forms: [facility], Work/School Release (Inpt), Smoking Cessation Medications and DC Order Prescriptions: Continued flecainide 100 mg tablet 100 mg PO Q12H Qty: 180 RF: 3 ascorbic acid (vitamin C) [Vitamin C] 500 mg Tablet 500 mg PO QDD RF: 0 tamsulosin [Flomax] 0.4 mg Capsule 0.4 mg PO HS RF: 0 Men's 50 Plus Multivitamin 400-20-370 mcg Tablet 1 tab PO QDD RF: 0 aspirin 81 mg Tablet,Delayed Release (Dr/Ec) 81 mg PO HS RF: 0 omeprazole 20 mg capsule,delayed release(DR/EC) 40 mg PO DAILYBB RF: 0 Changed metoprolol tartrate 25 mg tablet 25 mg PO DIRECTED Qty: 180 RF: 3 Discharge Orders: Discharge Order (Routine); Ordered 07/08/20 Ordered By: Federico Grimes Admission Data Admit Date/Time: 07/04/20 18:10 Attending Provider: Abimael Neal Admit Provider: Sam Braun Primary Care Provider: Vikki Kurtz Other Providers: Sam Braun ; Mohsen Casiano Other Interventions: Discharge Summary Assessment (RN) Last Done: 07/08/20 14:16 Supervising Physician Co-Signing Physician Notes Attending attestation I also saw the patient concur with the resident physician and confirmed nash portions of the history and physical examination. I agree with the impression and plan as noted in the resident documentation. He feels much better today. He notes marked improvement in the scrotal swelling and discomfort. He notes that the scrotum is itchy and discussed that this is not uncommon in the postinflammatory setting. He notes when getting up up to go to the bathroom last night and had no shortness of breath. He also denies any lightheadedness or dizziness. He is remained afebrile for greater than 24 hours Exam 137/83, 60, 20, 36.4, 94% room air Alert and oriented. Heart rate is regular upon my exam. Respirations are nonlabored Abdomen nontender Rectal exam by the resident revealed slightly boggy but generally nontender prostate Data White blood cell count 5.96, hemoglobin 14.1 BUN 17, creatinine 0.91 Impression and plan Complicated UTI/bilateral epididymitis Sepsis, gram-negative Atrial flutter, paroxysmal Thrombocytopenia, improving Paroxysmal atrial flutter BPH 1) discharge today after his dose of antibiotic. He returned to the medical outpatient treatment unit for continued antibiotics. 2) outpatient office follow-up scheduled for mid next week. At that point we can decide if he needs continued antibiotics or if we can transition to oral antibiotics at some point. 3) will increase his nighttime beta-kb dose to 37.5 mg. Once his infection has resolved, he will follow-up with cardiology for outpatient event monitoring. Resident Activity Tracking Resident Involvement: Resident Care Provided Care Provided: Adult [facility]
[2020-07-08] MEDS ORDERED: cefTRIAXone SODIUM 2,000 MG in DEXTROSE 5% 50 ML IV SCH (12:00)
--- NOTE | 2020-07-10 12:17 | Pharmacy Report ---
ED Pharmacist Culture FollowUP - Culture Follow Up Note Date of Service: July 10, 2020 Notes:: Patient was admitted and subsequently discharged to complete a total of 2 weeks of IV ceftriaxone, which should cover the E. coli growing in the blood and urine.
== END 2020-07-08 15:35 | disposition home health service (06) | DRG 872 ==
LOC: ED 10:57 → SUATTDRO 18:10 → 2N 18:10

== ENCOUNTER 2020-09-04 15:55 | Observation (INO) ==
[2020-09-04] MEDS ORDERED: MoRPHine SULFATE 4 MG/ML 1 ML CARP\\VIAL IV PRN (16:38)
[2020-09-04] MEDS ORDERED: oxyCODONE HCL IR 5 MG TAB (IMMEDIATE RELEASE) PO PRN (16:38)
[2020-09-04] MEDS ORDERED: MoRPHine SULFATE 2 MG/ML CARP IV PRN (16:38)
[2020-09-04] MEDS ORDERED: METOCLOPRAMIDE HCL INJ 5 MG/ML 2 ML VIAL IV PRN (16:44)
[2020-09-04] MEDS ORDERED: diphenhydrAMINE 50 MG/ML VIAL IV PRN (16:45)
[2020-09-04] MEDS ORDERED: diphenhydrAMINE Capsule 25 MG CAP PO PRN (16:45)
[2020-09-04] MEDS ORDERED: ACETAMINOPHEN 325 MG TAB PO PRN (16:45)
[2020-09-04] MEDS ORDERED: MAGNESIUM HYDROXIDE SUSP 30 ML UDC PO PRN (16:45)
[2020-09-04] MEDS ORDERED: PATIENT'S HEIGHT AND/OR WEIGHT NEEDED SCH (19:00)
[2020-09-04 20:26] LABS: Hematocrit (blood only) 44.9 % (42-52); Hemoglobin 15.9 g/dL (14.0-18.0); Mean Corpuscular Hemoglobin 32.6 pg (25-34); Mean Corpuscular Hgb Conc 35.4 g/dL (32-36); Mean Platelet Volume 9.8 fL (7.4-10.4); Platelet Count 199 K/uL (130-400); RDW Coefficient of Variation 12.6 % (11.5-14.5); RDW Standard Deviation 42.4 fL (36.4-46.3); Red Blood Count 4.88 M/uL (4.7-6.1)
[2020-09-04] MEDS: cefTRIAXone SODIUM 2,000 MG in DEXTROSE 5% 50 ML IV SCH (20:43)
[2020-09-04] MEDS: SODIUM CHLORIDE 0.9% 1000ML 1,000 ML IV SCH (20:43)
[2020-09-04 21:02] LABS: BUN Creatinine Ratio 16.2 (10-20); Calcium 8.5 mg/dl (8.5-10.1); Creatinine Clr Calc Pharmacy 80.1 ml/min; Est GFR (African American) 79.7 ml/min; Est GFR (Non-African American) 68.8 ml/min; Potassium 3.9 mmol/L (3.5-5.1)
[2020-09-04] MEDS: oxyCODONE HCL IR 5 MG TAB (IMMEDIATE RELEASE) PO PRN (21:06)
[2020-09-04] MEDS: TAMSULOSIN HCL 0.4 MG CAP PO SCH (21:07)
[2020-09-04] MEDS: ASPIRIN 81 MG ECTAB PO SCH (21:07)
[2020-09-04] MEDS: METOPROLOL TARTRATE 25 MG TAB PO SCH (21:07)
[2020-09-04] MEDS: DOCUSATE SODIUM 100 MG CAP PO SCH (21:07)
[2020-09-05] MEDS: oxyCODONE HCL IR 5 MG TAB (IMMEDIATE RELEASE) PO PRN ×3 (05:54→21:13)
[2020-09-05] MEDS: PANTOprazole 40 MG TAB PO SCH (05:54)
[2020-09-05] MEDS ORDERED: PROPOFOL IV EMULSION 10 MG/ML 20 ML VIAL IV ONE ×9 (07:16→10:33)
[2020-09-05] MEDS ORDERED: ONDANSETRON INJ 2 MG/ML 2 ML VIAL ONE (07:16)
[2020-09-05] MEDS ORDERED: DEXAMETHASONE SOD INJ 4 MG/ML VIAL ONE (07:16)
[2020-09-05] MEDS ORDERED: fentaNYL citrate 100 MCG/2 ML VIAL ONE (07:16)
[2020-09-05] MEDS ORDERED: LIDOCAINE 1% LOCAL 20 ML VIAL ONE (07:39)
[2020-09-05] MEDS ORDERED: BUPIVACAINE 0.5 % 5 MG/1 ML MPF 30ML VIAL ONE (07:39)
[2020-09-05] MEDS ORDERED: ceFAZolin 2000MG 2,000 MG/15 ML SYR IV ONE (08:03)
[2020-09-05] MEDS ORDERED: ceFAZolin 2,000 MG/15 ML IV PUSH IV ONE (08:05)
[2020-09-05] MEDS ORDERED: ONDANSETRON INJ 2 MG/ML 2 ML VIAL IV PRN (08:09)
[2020-09-05] MEDS ORDERED: ATROPINE SULFATE 0.1 MG/ML 10ML SYR IV PRN (08:09)
[2020-09-05] MEDS ORDERED: fentaNYL citrate 100 MCG/2 ML VIAL IV PRN (08:09)
[2020-09-05] MEDS ORDERED: PROMETHAZINE HCL 6.25 MG in SODIUM CHLORIDE 0.9% 50 ML IV PRN (08:09)
[2020-09-05] MEDS ORDERED: ePHEDrine sulfate 50 MG/ML AMP IV PRN (08:09)
--- NOTE | 2020-09-05 08:14 | Anesthesiology Consultation ---
Date of Service September 05, 2020 Assessment & Plan (1) Encounter for pre-operative examination: Chart Review Chart Review: Acceptable Risk for Surgery and Patient NOT seen in Pre Admission Testing Consults Requested none ASA ASA2 Proposed Anesthesia Anesthesia Type: MAC Risk / Benefits Reviewed With: PT / POA / Parent / Guardian, Accepts Plan and Informed Consent Obtained History Surgery Operation Date: 09/05/20 07:00 Proposed Procedures p Right Little Finger Open Fracture Incision and Drainage - Dominic Garcia MD s Possible Pinning - Dominic Garcia MD Height/Weight Height: 5 ft 10 in Weight: 102.1 kg Allergies Allergy/AdvReac Type Severity Reaction Status Date / Time Penicillins Allergy Intermediate RASH Verified 07/18/20 07:41 Medications Home Medications Medication Instructions Recorded Confirmed Last Taken Men's 50 Plus Multivitamin 1 tab PO QDD 06/02/18 07/18/20 07/03/20 ascorbic acid (vitamin C) [Vitamin 500 mg PO QDD 06/02/18 07/18/20 07/03/20 C] tamsulosin [Flomax] 0.4 mg PO HS 06/02/18 07/18/20 07/03/20 flecainide 100 mg tablet 100 mg PO Q12H #180 tab 01/05/20 07/18/20 07/04/20 aspirin 81 mg PO HS 07/04/20 07/18/20 07/03/20 omeprazole 40 mg PO DAILYBB 07/04/20 07/18/20 07/03/20 metoprolol tartrate 25 mg tablet 25 mg PO BID #180 tab 07/12/20 07/18/20 Unknown dutasteride 0.5 mg capsule 0.5 mg PO DAILY #90 cap 07/17/20 07/18/20 Unknown cephalexin 500 mg PO Q6H 10 Days #40 cap 09/02/20 Unknown Active Medications Generic Name Dose Route Start Last Admin Trade Name Freq PRN Reason Stop Dose Admin Aspirin 81 mg 09/04/20 21:00 09/04/20 21:07 Aspirin 81 Mg Ectab PO 10/04/20 20:59 81 mg HS LEÓN Administration Docusate Sodium 100 mg 09/04/20 21:00 09/04/20 21:07 Docusate Sodium 100 Mg Cap PO 10/04/20 20:59 100 mg BID LEÓN Administration Ceftriaxone Sodium 2,000 mg/ 70 mls @ 100 mls/hr 09/04/20 19:15 09/04/20 21:30 Dextrose IV 10/16/20 19:14 Infused DAILY@1900 LEÓN Infusion Protocol Sodium Chloride 1,000 mls @ 75 mls/hr 09/04/20 16:45 09/04/20 20:43 Nss 1000ml IV 10/04/20 16:44 75 mls/hr .[id number] LEÓN Administration Metoprolol Tartrate 25 mg 09/04/20 21:00 09/04/20 21:07 Metoprolol Tartrate 25 Mg Tab PO 10/04/20 20:59 Not Given BID LEÓN Oxycodone HCl 5 - 10 mg 09/04/20 21:05 09/05/20 05:54 Oxycodone Hcl Ir 5 Mg Tab (Immediate Release) PO 09/18/20 21:04 10 mg Q4H PRN Administration Pain Pantoprazole Sodium 40 mg 09/05/20 06:30 09/05/20 05:54 Pantoprazole 40 Mg Tab PO 10/05/20 06:29 40 mg DAILYBB LEÓN Administration Tamsulosin HCl 0.4 mg 09/04/20 21:00 09/04/20 21:07 Tamsulosin Hcl 0.4 Mg Cap PO 10/04/20 20:59 0.4 mg HS LEÓN Administration NPO Date Last Intake of Fluids: 09/05/20 Time Last Intake of Fluids: 05:56 Last Intake of Fluids Comment: took meds with sip of water this morning Date Last Intake of Solids: 09/04/20 Time Last Intake of Solids: 23:00 Past Medical History Medical History Atrial flutter Creatinine elevation Leukocytosis Exercise / Class Metabolic Activity II 4-5 Yardwork/Stairs/Walk up hill Past Family History Family History Mother Diabetes Past Surgical History Surgical History History of hernia surgery History of partial thyroidectomy Past Anesthesia History No Hx of Anesthesia Complications and No Family Hx of Anesthesia Complications History of PONV No Hx of PONV and No Hx of Motion Sickness Social History Smoking Status: Former smoker Hx Alcohol Use: No Hx Substance Use: No substance use type: does not use Physical Exam Vital Signs Last Vital Signs Temp 36.7 C 09/05/20 07:32 Pulse 54 L 09/05/20 07:32 Resp 18 09/05/20 07:32 BP 133/73 09/05/20 07:32 Pulse Ox 95 09/05/20 07:32 ENMT Mouth: no dentition abnormality Thyromental Distance: > or= 3.5 Finger Breadths Mallampati Class: II Neck normal visual inspection Respiratory normal respiratory effort Auscultation: lungs clear to auscultation bilaterally Cardiovascular Rate/Rhythm: regular rate and regular rhythm Psychiatric Orientation: alert Testing Laboratory Results 09/04/20 20:04 09/04/20 20:04
[2020-09-05] MEDS ORDERED: MIDAZOLAM HCL 1 MG/ML 2ML VIAL ONE ×2 (08:25→08:27)
--- NOTE | 2020-09-05 11:37 | Fluoroscopy Report ---
FL finger RT 2V (fifth finger) CLINICAL HISTORY: RT I D 5TH POSSIBLE PINNING OF FX COMPARISON STUDY: 09/02/2020 FLUOROSCOPY TIME: 134 seconds. NUMBER OF FLUOROSCOPIC IMAGES: 2 FINDINGS: 2 intraoperative fluoroscopic spot images demonstrate an oblique fracture through the midsh aft of the middle phalanx. There is an overlying rectangular shaped operative metallic structure. IMPRESSION: Intraoperative fluoroscopic spot images. Oblique fracture involving the mid shaft of the middle phalanx ACT 112: Negative or not required by law. Electronically signed by: Juan Booth M.D. 09/05/2020 11:36 AM
--- NOTE | 2020-09-05 12:15 | Anesthesiology Progress Note ---
Date of Service September 05, 2020 Anesthesia Post Procedure Vital Signs Vital Signs: Temp Pulse Pulse Resp BP BP Pulse Ox 09/05/20 12:05 36.5 C 49 L 16 141/88 H 94 09/05/20 11:55 47 L 14 136/83 98 09/05/20 11:45 52 L 16 135/89 97 09/05/20 11:35 36.1 C L 55 L 16 135/83 95 09/05/20 07:32 36.7 C 54 L 18 133/73 95 09/05/20 07:16 36.3 C L 57 L 18 135/78 97 09/05/20 05:50 36.7 C 48 L 16 133/74 97 09/04/20 23:28 36.6 C 47 L 16 113/63 96 09/04/20 19:42 36.6 C 57 L 18 127/74 97 09/04/20 18:59 36.6 C 57 L 16 127/74 97 Pain Intensity Right 5th Digit: Pain Intensity: 0 Transfer of Care Handoff Completed per policy Notes Mental Status: alert / awake / arousable Patient Amnestic to Procedure: Yes Nausea / Vomiting: adequately controlled Pain: adequately controlled Airway Patency, RR, SpO2: stable & adequate BP & HR: stable & adequate Hydration State: stable & adequate Anesthetic Complications: no major complications apparent
[2020-09-05] MEDS ORDERED: NALOXONE HCL 0.4 MG/1 ML VIAL/CARP IV PRN (12:42)
[2020-09-05] MEDS ORDERED: METOCLOPRAMIDE HCL INJ 5 MG/ML 2 ML VIAL IV PRN (12:42)
[2020-09-05] MEDS ORDERED: bisacodyL 10 MG SUPP PR PRN (12:42)
[2020-09-05] MEDS ORDERED: traMADol HCL 50 MG TABLET PO PRN (12:42)
[2020-09-05] MEDS: METOPROLOL TARTRATE 25 MG TAB PO SCH ×2 (12:50→21:13)
[2020-09-05] MEDS: DOCUSATE SODIUM 100 MG CAP PO SCH ×2 (12:51→21:12)
--- NOTE | 2020-09-05 13:22 | Electrocardiogram Report ---
Test Reason : Blood Pressure : / mmHG Vent. Rate : 053 BPM Atrial Rate : 053 BPM P-R Int : 176 ms QRS Dur : 110 ms QT Int : 486 ms P-R-T Axes : 049 -14 001 degrees QTc Int : 456 ms Sinus bradycardia Voltage criteria for left ventricular hypertrophy Abnormal ECG When compared with ECG of 07-JUL-2020 05:35, Sinus rhythm has replaced Ectopic atrial rhythm Vent. rate has decreased BY 41 BPM QT has shortened Confirmed by Rudi Macias ([id number]) on 09/05/2020 1:22:14 PM Referred By: Dominic Garcia Confirmed By:Rudi Macias
[2020-09-05] MEDS: SODIUM CHLORIDE 0.9% 1000ML 1,000 ML IV SCH ×3 (13:28→23:52)
[2020-09-05] MEDS: ACETAMINOPHEN 500 MG TAB PO SCH ×2 (15:20→21:13)
[2020-09-05] MEDS ORDERED: CEROVITE ADV FORMULA TAB PO SCH (16:30)
[2020-09-05] MEDS ORDERED: ASCORBIC ACID 500 MG TAB PO SCH (16:30)
[2020-09-05] MEDS ORDERED: hydrALAZINE HCL 20 MG/ML VIAL IV PRN (17:07)
[2020-09-05] MEDS: cefTRIAXone SODIUM 2,000 MG in DEXTROSE 5% 50 ML IV SCH (18:21)
[2020-09-05] MEDS: TAMSULOSIN HCL 0.4 MG CAP PO SCH (21:12)
[2020-09-05] MEDS: ASPIRIN 81 MG ECTAB PO SCH (21:12)
[2020-09-06] MEDS: ACETAMINOPHEN 500 MG TAB PO SCH ×2 (05:37→14:08)
[2020-09-06] MEDS: PANTOprazole 40 MG TAB PO SCH (05:37)
[2020-09-06 07:34] VITALS: BP 129/77; PULSE 59; TEMP 98.1; O2SAT 94
[2020-09-06] MEDS: METOPROLOL TARTRATE 25 MG TAB PO SCH (07:40)
[2020-09-06] MEDS: DOCUSATE SODIUM 100 MG CAP PO SCH (07:43)
[2020-09-06] MEDS: oxyCODONE HCL IR 5 MG TAB (IMMEDIATE RELEASE) PO PRN (07:43)
--- NOTE | 2020-09-06 08:36 | Anesthesiology Progress Note ---
Date of Service September 06, 2020 Anesthesia Post Procedure Vital Signs Vital Signs: Temp Pulse Pulse Resp BP BP Pulse Ox 09/06/20 07:33 36.7 C 59 L 16 129/77 94 09/06/20 04:37 36.6 C 52 L 18 146/84 H 95 09/06/20 00:22 36.6 C 61 16 126/79 97 09/05/20 21:03 36.8 C 58 L 16 123/74 93 09/05/20 16:47 146/75 H 09/05/20 16:19 50 L 167/89 H 09/05/20 15:27 36.5 C 53 L 16 171/82 H 97 09/05/20 14:30 36.5 C 52 L 16 125/67 95 09/05/20 13:30 36.4 C L 67 16 144/81 H 95 09/05/20 13:00 36.8 C 51 L 16 154/88 H 96 09/05/20 12:30 36.4 C L 51 L 16 143/86 H 95 09/05/20 12:25 36.5 C 50 L 16 95 09/05/20 12:15 36.5 C 49 L 16 142/63 H 95 09/05/20 12:05 36.5 C 49 L 16 141/88 H 94 09/05/20 11:55 47 L 14 136/83 98 09/05/20 11:45 52 L 16 135/89 97 09/05/20 11:35 36.1 C L 55 L 16 135/83 95 Pain Intensity Right 5th Digit: Pain Intensity: 4 Notes Mental Status: alert / awake / arousable and participated in evaluation Patient Amnestic to Procedure: Yes Nausea / Vomiting: adequately controlled Pain: adequately controlled Airway Patency, RR, SpO2: stable & adequate BP & HR: stable & adequate Hydration State: stable & adequate Anesthetic Complications: no major complications apparent
--- NOTE | 2020-09-06 11:19 | Orthopedic Progress Note ---
Date of Service September 06, 2020 Assessment & Plan (1) Open finger fracture: X-rays are reviewed. Findings discussed with patient. Surgical results reviewed. Continue intravenous antibiotics. He will get his dose a little bit early today. If all is well we will consider discharge. He can then follow-up in the [facility] to get an additional dose of the Rocephin tomorrow. Subsequent to that he would be placed on an oral antibiotic. Possibly cefdinir 300 twice daily. We talked about the possibilities. Discussed the rationale for performing the external fixator. If his alignment stays reasonable this could be definitive treatment. If subsequent surgery is necessary it might occur 7 to 14 days for now once the soft tissues have done some healing and there is no evidence or less concern regarding infection. If he is discharged today he will follow up Thursday. He will elevate ice limit activity. If there is any problems with fevers swelling or any other problems or questions he will call the office or go to the emergency room. Present on Admission?: Yes Admission and Anticipated Discharge Date Admission Date: September 04, 2020 Subjective Patient reports pain at times which is controlled with medication. Otherwise he is doing well. Physical Exam Physical Exam: The splint is intact. He has some itching at the first webspace. The Coban is removed and an Sage wrap is applied. Swelling is minimal. There is no redness and no break in the skin. The tip of the finger is exposed and has brisk capillary refill and intact but diminished sensation. Results & Data ([facility]) Vital Signs (Past 12 Hours) Vital Signs Temp Pulse Resp BP BP Pulse Ox 09/06/20 07:33 36.7 C 59 L 16 129/77 94 09/06/20 04:37 36.6 C 52 L 18 146/84 H 95 09/06/20 00:22 36.6 C 61 16 126/79 97
--- NOTE | 2020-09-06 11:53 | Discharge Summary ---
Date of Service September 06, 2020 Discharge Data Procedures Performed Operation Date: 09/05/20 07:00 Actual Procedures p Open Right Small Finger Fracture Irrigation and Debridement, External Fixation(Right) - Dominic Garcia MD Hospital Course (1) Open finger fracture: Was admitted to [facility] on Friday September 04, 2020 after being seen in the office for a right small finger open fracture. He had a laceration over the weekend went to the emergency room where it was washed out and closed. He was placed on oral Keflex which she has been taking since the emergency room visit. He has not developed any fevers or chills, redness or warmth. He has had some increased swelling to his right hand. The injury happened on September 02 at his home where he dropped a transmission onto his right hand. In the emergency room he did not receive any IV antibiotics. It was decided that he would be admitted directly from our office to the hospital to start IV antibiotics and plan for an irrigation and debridement and possible pinning versus external fixation of his right small finger middle phalanx open fracture. He was in agreement. He was admitted.Orders were placed in [facility]. He was made n.p.o. after midnight. He was started on Rocephin 2 g IV every 24 hours. Preoperative EKG and lab work was also obtained which were normal. On September 05, 2020 he underwent an irrigation debridement and application of external fixation of his right small finger middle phalanx open fracture. Surgery was performed was MAC anesthesia and peripheral nerve block. He tolerated the procedure well without any intraoperative complications. Postoperatively he was allowed out of bed, activities as tolerated. His IV Rocephin was continued 2 g every 24 hours. He was given try Tylenol tramadol and oxycodone for postoperative pain control as well as IV morphine. He was encouraged to ice and elevate his right hand. His finger was placed in a splint and he was advised to keep it on at all times. Keep the splint Clean and dry. He tolerated regular diet during his inpatient stay. On postoperative day 1 his postoperative dressings were modified for comfort and an Sage bandage was applied. His small finger had adequate perfusion with some mild decrease sensation. His pain was well controlled on oral medication. Case management was involved. We elected to discharge him to his home on September 06, 2020 after his IV Rocephin dose. He will then return tomorrow to the medical treatment unit to obtain a third IV Rocephin dose. After that he can start cefdinir 300 mg twice daily for 5 days for prophylaxis of infection in his finger. He will then follow-up as instructed on 09/10/2020 at 11:30 AM. All questions were answered and discharge instructions were provided. He understands and agrees with the plan. Discharge Instructions DIET: * Resume previous diet. MEDICATIONS: * Please take your prescriptions as instructed at your pre-op appointment and/or see medication discharge instructions listed above. * Oxycodone - take 1-2 tablets as directed every 4-6 hours as needed for severe pain. * Cefdiner - 300mg BID x 5 days - start taking after completion of Rocephin. Start Thursday afternoon. * tramadol - 1-2 tabs every 6 hours as needed for mild to moderate pain. * Colace- over the counter stool softener. Take while on pain medication to prevent constipation. * If concerns develop, call your physician's office at . * COME IN TO THE MEDICAL TREATMENT UNTIL AT [facility] ON THURSDAY 09/07 AT 1:00 P.M. FOR ONE DOSE OF YOUR ROCEPHIN. SPECIAL CARE INSTRUCTIONS: * Ice to right hand as needed for pain/swelling. * Elevate right hand above your heart to relieve pain/swelling. * Keep splint and dressing on at all times. Keep dressing dry. * Do not put weight on right hand. No heavy pushing, pulling or lifting. * Allowed for full range of motion finger right hand as tolerated. * Your surgical extremity may be discolored due to prepping agents used on the skin. A bluish-green tint is a normal variant and should not cause alarm. Call your doctor at [phone] if: * Temperature above 101 degrees * Pain not relieved by pain medicine ordered * There is increased drainage or redness from any incision * You have any unanswered questions, problems or concerns. FOLLOW UP VISIT: * If not already scheduled, please call the office at to schedule a follow-up appointment. * Follow up with Dr. Garcia/Allison Dey PA-C at [facility] on Thursday09/10/20 at 11:30 a.m.
--- NOTE | 2020-09-06 12:02 | Operative Report ---
Post Operative Report Pre & Post Diagnosis Operation Date: 09/05/20 07:00 Pre-Op Diagnosis: Open Middle Phalanx Fracture of Right Small Finger Post-Op Diagnosis: Open Middle Phalanx Fracture of Right Small Finger I identified the patient and participated in the time-out.: Yes Procedure Operation Date: 09/05/20 07:00 Actual Procedures p Open Right Small Finger Fracture Irrigation and Debridement, External Fixation(Right) - Dominic Garcia MD Surgeon Dominic Garcia MD Document Control Clerk Khurram Menezes MD Estimated Blood Loss 5 Findings Consistent with Post-Op Diagnosis Specimens none Anesthesia Type MAC Complications none Disposition Accompanied Patient To Recovery: Yes Disposition: Recovery Room Description of Procedure As per 's note, I assisted in prepping and draping, instruments handling, certain parts of the procedure and wound closure I attest to the content of the Intraoperative Record and any orders documented therein. Any exceptions are noted below.
[2020-09-06] MEDS ORDERED: cefTRIAXone SODIUM 2,000 MG in DEXTROSE 5% 50 ML IV SCH (13:00)
== END 2020-09-06 15:47 | disposition home or self-care (01) ==
LOC: 3E 18:50 → INTOOBSV 18:50

== ENCOUNTER 2025-01-31 13:56 | Inpatient (IN) ==
[2025-01-31] MEDS: SODIUM CHLORIDE 0.9% 1,000 ML IV SCH (14:15)
[2025-01-31] MEDS: AMIODARONE 150MG / 100ML D5W IV ONE (14:31)
[2025-01-31] MEDS: KETAMINE HCL INJ 50 MG/ML 10 ML VIAL ONE (14:38)
[2025-01-31 14:42] LABS: Hematocrit (blood only) 37.9 % (42.0-52.0); Hemoglobin 13.4 g/dL (14.0-18.0); Immature Granulocytes # (auto) 0.02 K/uL (0.01-0.20); Immature Granulocytes % (auto) 0.3 %; Mean Corpuscular Hemoglobin 31.9 pg (25.0-34.0); Mean Corpuscular Volume 90.2 fL (80.0-100.0); Platelet Count 189 K/uL (130-400); RDW Standard Deviation 45.5 fL (36.4-46.3); Red Blood Count 4.20 M/uL (4.70-6.10); White Blood Count 6.04 K/ul (4.8-10.8)
[2025-01-31] MEDS ORDERED: 0.2 MICRON FILTER SET 1 EACH IV STA (14:47)
[2025-01-31] MEDS: AMIODARONE 360MG / 200ML D5W IV ONE (14:47)
[2025-01-31 15:01] LABS: Alanine Aminotransferase 16 U/L (7-52); Albumin Level 3.6 gm/dl (3.4-5.0); Alkaline Phosphatase 67 U/L (34-104); Anion Gap 7 (3-11); Bilirubin,Total 1.1 mg/dl (0.2-1.0); Blood Urea Nitrogen 13 mg/dl (6-23); Calcium 9.1 mg/dl (8.6-10.3); Carbon Dioxide 24 mmol/L (21-32); Chloride 108 mmol/L (98-107); Glucose 143 mg/dl (70-99(Fasting)); Magnesium 2.0 mg/dl (1.7-2.4); Potassium 3.5 mmol/L (3.5-5.1); Sodium 139 mmol/L (136-145); Total Protein 7.2 gm/dl (6.0-8.3)
--- NOTE | 2025-01-31 15:08 | Emergency Department Note ---
Impression & Plan Atrial fibrillation with RVR, Pneumonia, Acute UTI ED Provider Note NAME: KARLO SMITH AGE: 70 SEX: M : 1955 ARRIVES VIA: Walk-In INFORMANT: Patient, ED PROVIDER(S): Maribel Burnette MD CHIEF COMPLAINT: Palpitations HPI: This is a 70-year-old male presenting for palpitations. Patient began having chest palpitations about 1 hour ago. He felt that he was going to pass out. His vision became black and it was felt like he was going to "go out ". He felt this previously when he had A-fib. This was multiple years ago and he had cardioversion for this. Since then he has had never had recurrence. He is not on anticoagulation. He is very sure this happened only 1 hour ago and not prior to this. He had no chest pain associated with this. He reports having a urinary catheter that occasionally will have pus. He is concerned about infection here. He also history of cancer, esophagus removal is on medications for the ROS: See above HPI for pertinent positives & negatives. A total of 10 systems reviewed and were otherwise negative. PAST MEDICAL HISTORY: See Below PAST SURGICAL HISTORY: See Below FAMILY HISTORY: See Below SOCIAL HISTORY: See Below HOME MEDICATIONS: See Below ALLERGIES: See Below VITALS: See Below PHYSICAL EXAMINATION: General: resting comfortably in no acute distress Head: Normocephalic and atraumatic Eyes: Normal inspection, extraocular muscles intact Ear, nose, throat: Normal external exam Neck: Normal range of motion Respiratory: lungs clear to auscultation bilaterally Cardiovascular: Irregular irregular rate/rhythm, no murmur GI: soft, nontender, no guarding or rebound Extremities: nontender, moves all extremities Neuro: The patient awake and alert, appropriately conversive, no focal deficits, symmetric faces Skin: Warm, dry, and intact MEDICAL DECISION MAKING: This is a 70-year-old male presents with palpitations. Patient currently in A- fib with RVR. He is currently hypotensive into the 80s over 50s. Patient had symptoms of presyncope. Patient does appear unstable, pale. Will do emergent cardioversion. Patient discussed risks/benefits. Patient comfortable with post cardioversion and sedation. Patient sedated with ketamine and cardioverted at 200-250 J without success. - Patient started on amiodarone drip as patient is now hypertensive pressures in the 150s. Patient also has 1 L running at this time. -Patient blood pressures have improved after receiving fluids and amiodarone. His heart rate is downtrending from 150s to 120s. -Chest x-ray reveals bilateral pneumonia -Urinalysis positive for UTI -Blood work reveals no significant leukocytosis. No severe electrolyte disturbances. Troponin negative x 2. -At this time patient has had improved symptoms intrusive hypotension. His blood pressure is now in the 100s. His heart rate is downtrending into the 100s Indication: A-fib with RVR, hypotension Written consent was obtained after the risks and benefits were explained, including but not limited to pain, thermal burn, allergic reaction, aspiration, airway obstruction, laryngospasm, infection, hypotension, and cardiorespiratory arrest. At this time, the risks of the procedure are less than the risks of NOT performing the procedure. A time out was taken and the correct patient and procedure identified. The patient was on 100% via NRB and end tidal CO2 monitoring prior to the procedure. Suction, airway equipment, medications, respiratory equipment, ACLS cart, and appropriate personnel were prepared prior to the initiation of the procedure. Sedation was achieved utilizing ketamine. The biphasic defibrillator was set to 200 joules of energy and synched. After confirmation of sedation and "all clear" safety check the synchronized shock was delivered. This resulted in unsuccessful conversion. Procedural Sedation Indication emergent cardioversion Total time: 10 minutes. Written consent was obtained after the risks and benefits were explained to the patient and , including, but not limited to aspiration, allergic reaction, breathing difficulties, cardiac complications, vomiting, pain, event recall, bleeding, and/or infection. Pre-sedation examination and paperwork completed. The patient was on 100% oxygen via NRB prior to the procedure. Continous end tidal CO2 monitoring, pulse oximetry, and cardiac monitoring were utilized. Suction, airway equipment, medications, respiratory equipment, and appropriate personnel were prepared prior to the initiation of the procedure. A time out was taken. Sedation was achieved utilizing 75 mg of ketamine. After I observed the patient had reached the appropriate level of sedation the main procedure was performed without complication. Sedation was discontinued and the monitoring continued. The patient recovered quickly from the effects of the medication without complication or adverse event. Differential diagnosis: A-fib with RVR, cardiac shock, sepsis, UTI, pneumonia Independent History obtained from: Diagnostics interpreted by me: ECG: ECG independently interpreted by me with A-fib with RVR at a rate of 139, normal QRS, normal QTc, no ST segment elevations consistent with STEMI criteria Cardiac Monitoring: An order was placed for continuous cardiac monitoring. The monitor shows a rate of 111 with atrial fibrillation s rhythm. Critical Care Note: I have personally spent 38 minutes of critical care time in the direct management of this patient. This includes bedside care, interpretation of diagnostic studies, and testing, discussion with consultants, patient, and family members, and other required patient management activities. This 38 minutes is in excess of all separately billable procedures. Past Med/Surg History Problem List (Updated 02/01/25 @ 01:10 by Maribel Burnette MD) Chest pain Adenocarcinoma of esophagus Pneumonia (Acute) Catheter-associated urinary tract infection Atrial fibrillation with RVR (Acute) Dyslipidemia Status post catheter ablation of atrial flutter Sinus bradycardia Dyspnea on exertion BPH with obstruction/lower urinary tract symptoms (Chronic) Open finger fracture Acute bronchitis (Acute) Hypokalemia Acute renal insufficiency Sepsis (Acute) Acute UTI (Acute) Acute epididymitis (Acute) Atrial flutter, paroxysmal LVH (left ventricular hypertrophy) HLD (hyperlipidemia) GERD (gastroesophageal reflux disease) Hyperglycemia Epididymitis Laceration of right little finger w/o foreign body w/o damage to nail (Acute) Atrial flutter Surgical History History of hernia surgery History of partial thyroidectomy Family History Mother Diabetes Social History Smoking Status: Former smoker Second Hand Exposure: No; Do You Dip or Chew Tobacco: No; Hx Alcohol Use: No Hx Substance Use: No Preferred Language: Malawian Communication Ability: Effective Visual Impairment: No Limitations Hearing Ability: Normal Online Content Editor Required: No Beliefs That Will Affect Care: None marital status: Current Living Situation: Spouse current occupational status: employed current occupation: [employer] of [employer] at [employer] Feels Safe at Home: Yes Assistive Devices: None Allergies Allergies Allergy/AdvReac Type Severity Reaction Status Date / Time Penicillins Allergy Intermediate RASH Verified 02/04/24 09:57 Home Meds Home Medications Medication Instructions Recorded Confirmed ascorbic acid (vitamin C) 500 mg 500 mg PO QDD 06/02/18 02/04/24 tablet (Vitamin C) [id number] acid-vit 1 tab PO QDD 06/02/18 02/04/24 K-lycop 400 mcg-20 mcg-370 mcg tablet (Men's 50 Plus Multivitamin) aspirin 81 mg tablet,delayed 81 mg PO HS 07/04/20 02/04/24 release omeprazole 20 mg capsule,delayed 40 mg PO DAILYBB 07/04/20 02/04/24 release Previous Rx's Medication Instructions Recorded acetaminophen 500 mg tablet 1,000 mg (2 x 500 mg) PO Q8 #30 09/06/20 tabs docusate sodium 100 mg capsule 100 mg PO BID #60 caps 09/06/20 dutasteride 0.5 mg capsule 0.5 mg PO DAILY #90 caps 02/04/24 (Avodart) tamsulosin 0.4 mg capsule (Flomax) 0.4 mg PO DAILY #90 caps 02/04/24 Results & Data (ED) Vital Signs Vital Signs - 24 hr 01/31/25 13:59 01/31/25 14:14 01/31/25 14:14 Temperature 36.7 C Temperature Source Temporal Artery Scan Pulse Rate 94 H 135 H Pulse Rate from SpO2 Sensor Respiratory Rate 18 Respiratory Effort / Characteristics Non-Labored Spontaneous Respiratory Depth Normal Blood Pressure 86/56 L 80/57 L Blood Pressure Mean 66 69 Blood Pressure Position Sitting Pulse Oximetry 94 Oxygen Delivery Method Room Air Oxygen Flow Rate Fraction of Inspired Oxygen Sepsis Recent Fever Within 48 Hours No Sepsis New/Unexplained Change in Mental Status No Sepsis Action Taken by Nursing No Action Required Oxygen Flow Rate - Titration Pulse Oximetry Post Tiitration 01/31/25 14:15 01/31/25 14:21 01/31/25 14:22 Temperature Temperature Source Pulse Rate 140 H 126 H Pulse Rate from SpO2 Sensor 119 H Respiratory Rate 16 Respiratory Effort / Characteristics Respiratory Depth Blood Pressure 93/69 L Blood Pressure Mean 73 Blood Pressure Position Pulse Oximetry 94 Oxygen Delivery Method Room Air Oxygen Flow Rate Fraction of Inspired Oxygen Sepsis Recent Fever Within 48 Hours Sepsis New/Unexplained Change in Mental Status Sepsis Action Taken by Nursing Oxygen Flow Rate - Titration Pulse Oximetry Post Tiitration 01/31/25 14:24 01/31/25 14:26 01/31/25 14:26 Temperature Temperature Source Pulse Rate 134 H Pulse Rate from SpO2 Sensor Respiratory Rate 28 H Respiratory Effort / Characteristics Respiratory Depth Blood Pressure 151/104 H 151/104 H Blood Pressure Mean 124 124 Blood Pressure Position Pulse Oximetry Oxygen Delivery Method Oxygen Flow Rate Fraction of Inspired Oxygen Sepsis Recent Fever Within 48 Hours Sepsis New/Unexplained Change in Mental Status Sepsis Action Taken by Nursing Oxygen Flow Rate - Titration Pulse Oximetry Post Tiitration 01/31/25 14:27 01/31/25 14:27 01/31/25 14:28 Temperature Temperature Source Pulse Rate 151 H Pulse Rate from SpO2 Sensor 145 H Respiratory Rate 26 H Respiratory Effort / Characteristics Respiratory Depth Blood Pressure 139/95 Blood Pressure Mean 113 Blood Pressure Position Pulse Oximetry 87 L Oxygen Delivery Method Nasal Cannula Nasal Cannula Oxygen Flow Rate 0 2 Fraction of Inspired Oxygen 88 Sepsis Recent Fever Within 48 Hours Sepsis New/Unexplained Change in Mental Status Sepsis Action Taken by Nursing Oxygen Flow Rate - Titration 2 Pulse Oximetry Post Tiitration 95 01/31/25 14:30 01/31/25 14:30 01/31/25 14:33 Temperature Temperature Source Pulse Rate 133 H 139 H Pulse Rate from SpO2 Sensor 126 H 139 H Respiratory Rate 22 15 Respiratory Effort / Characteristics Respiratory Depth Blood Pressure 134/111 H Blood Pressure Mean 115 Blood Pressure Position Pulse Oximetry 95 95 Oxygen Delivery Method Nasal Cannula Nasal Cannula Oxygen Flow Rate 2 2 Fraction of Inspired Oxygen Sepsis Recent Fever Within 48 Hours Sepsis New/Unexplained Change in Mental Status Sepsis Action Taken by Nursing Oxygen Flow Rate - Titration Pulse Oximetry Post Tiitration 01/31/25 14:35 01/31/25 14:36 01/31/25 14:39 Temperature Temperature Source Pulse Rate 125 H 122 H Pulse Rate from SpO2 Sensor 133 H 120 H Respiratory Rate 23 22 Respiratory Effort / Characteristics Respiratory Depth Blood Pressure 112/83 Blood Pressure Mean 104 Blood Pressure Position Pulse Oximetry 95 96 Oxygen Delivery Method Nasal Cannula Nasal Cannula Oxygen Flow Rate 2 2 Fraction of Inspired Oxygen Sepsis Recent Fever Within 48 Hours Sepsis New/Unexplained Change in Mental Status Sepsis Action Taken by Nursing Oxygen Flow Rate - Titration Pulse Oximetry Post Tiitration 01/31/25 14:40 01/31/25 14:42 01/31/25 14:45 Temperature Temperature Source Pulse Rate 113 H 119 H Pulse Rate from SpO2 Sensor 84 94 H Respiratory Rate 16 15 Respiratory Effort / Characteristics Respiratory Depth Blood Pressure 118/76 Blood Pressure Mean 85 Blood Pressure Position Pulse Oximetry 96 92 Oxygen Delivery Method Nasal Cannula Nasal Cannula Oxygen Flow Rate 2 2 Fraction of Inspired Oxygen Sepsis Recent Fever Within 48 Hours Sepsis New/Unexplained Change in Mental Status Sepsis Action Taken by Nursing Oxygen Flow Rate - Titration Pulse Oximetry Post Tiitration 01/31/25 14:45 01/31/25 14:48 01/31/25 14:50 Temperature Temperature Source Pulse Rate 115 H Pulse Rate from SpO2 Sensor 120 H Respiratory Rate 17 Respiratory Effort / Characteristics Respiratory Depth Blood Pressure 102/75 107/66 Blood Pressure Mean 86 79 Blood Pressure Position Pulse Oximetry 95 Oxygen Delivery Method Nasal Cannula Oxygen Flow Rate 2 Fraction of Inspired Oxygen Sepsis Recent Fever Within 48 Hours Sepsis New/Unexplained Change in Mental Status Sepsis Action Taken by Nursing Oxygen Flow Rate - Titration Pulse Oximetry Post Tiitration 01/31/25 14:50 01/31/25 14:51 01/31/25 14:54 Temperature Temperature Source Pulse Rate 99 H 85 Pulse Rate from SpO2 Sensor 73 84 Respiratory Rate 20 21 Respiratory Effort / Characteristics Respiratory Depth Blood Pressure 107/66 Blood Pressure Mean 79 Blood Pressure Position Pulse Oximetry 94 93 Oxygen Delivery Method Nasal Cannula Nasal Cannula Oxygen Flow Rate 2 2 Fraction of Inspired Oxygen Sepsis Recent Fever Within 48 Hours Sepsis New/Unexplained Change in Mental Status Sepsis Action Taken by Nursing Oxygen Flow Rate - Titration Pulse Oximetry Post Tiitration 01/31/25 14:55 01/31/25 14:57 01/31/25 15:00 Temperature Temperature Source Pulse Rate 79 Pulse Rate from SpO2 Sensor 77 Respiratory Rate 23 Respiratory Effort / Characteristics Respiratory Depth Blood Pressure 94/73 L 109/73 Blood Pressure Mean 77 84 Blood Pressure Position Pulse Oximetry 93 Oxygen Delivery Method Nasal Cannula Oxygen Flow Rate 2 Fraction of Inspired Oxygen Sepsis Recent Fever Within 48 Hours Sepsis New/Unexplained Change in Mental Status Sepsis Action Taken by Nursing Oxygen Flow Rate - Titration Pulse Oximetry Post Tiitration 01/31/25 15:00 01/31/25 15:03 01/31/25 15:05 Temperature Temperature Source Pulse Rate 71 91 H Pulse Rate from SpO2 Sensor 69 82 Respiratory Rate 23 26 H Respiratory Effort / Characteristics Respiratory Depth Blood Pressure 95/72 L Blood Pressure Mean 86 Blood Pressure Position Pulse Oximetry 94 94 Oxygen Delivery Method Nasal Cannula Nasal Cannula Oxygen Flow Rate 2 2 Fraction of Inspired Oxygen Sepsis Recent Fever Within 48 Hours Sepsis New/Unexplained Change in Mental Status Sepsis Action Taken by Nursing Oxygen Flow Rate - Titration Pulse Oximetry Post Tiitration 01/31/25 15:06 01/31/25 15:09 01/31/25 15:10 Temperature Temperature Source Pulse Rate 66 114 H Pulse Rate from SpO2 Sensor 69 119 H Respiratory Rate 23 24 Respiratory Effort / Characteristics Respiratory Depth Blood Pressure 97/69 L Blood Pressure Mean 88 Blood Pressure Position Pulse Oximetry 94 94 Oxygen Delivery Method Nasal Cannula Nasal Cannula Oxygen Flow Rate 2 2 Fraction of Inspired Oxygen Sepsis Recent Fever Within 48 Hours Sepsis New/Unexplained Change in Mental Status Sepsis Action Taken by Nursing Oxygen Flow Rate - Titration Pulse Oximetry Post Tiitration 01/31/25 15:12 01/31/25 15:15 01/31/25 15:15 Temperature Temperature Source Pulse Rate 123 H 81 Pulse Rate from SpO2 Sensor 128 H 83 Respiratory Rate 21 Respiratory Effort / Characteristics Respiratory Depth Blood Pressure 106/67 Blood Pressure Mean 80 Blood Pressure Position Pulse Oximetry 94 Oxygen Delivery Method Nasal Cannula Oxygen Flow Rate 2 Fraction of Inspired Oxygen Sepsis Recent Fever Within 48 Hours Sepsis New/Unexplained Change in Mental Status Sepsis Action Taken by Nursing Oxygen Flow Rate - Titration Pulse Oximetry Post Tiitration 01/31/25 15:15 01/31/25 15:20 01/31/25 15:25 Temperature Temperature Source Pulse Rate 121 H 110 H Pulse Rate from SpO2 Sensor Respiratory Rate 22 21 20 Respiratory Effort / Characteristics Respiratory Depth Blood Pressure 106/67 112/70 90/67 L Blood Pressure Mean 80 83 73 Blood Pressure Position Pulse Oximetry 95 94 94 Oxygen Delivery Method Nasal Cannula Nasal Cannula Oxygen Flow Rate 2 2 Fraction of Inspired Oxygen Sepsis Recent Fever Within 48 Hours Sepsis New/Unexplained Change in Mental Status Sepsis Action Taken by Nursing Oxygen Flow Rate - Titration Pulse Oximetry Post Tiitration 01/31/25 15:30 01/31/25 15:35 01/31/25 15:41 Temperature Temperature Source Pulse Rate 83 106 H 85 Pulse Rate from SpO2 Sensor 96 H Respiratory Rate 15 21 16 Respiratory Effort / Characteristics Respiratory Depth Blood Pressure 106/65 96/73 L 127/78 Blood Pressure Mean 78 87 88 Blood Pressure Position Pulse Oximetry 94 94 92 Oxygen Delivery Method Nasal Cannula Nasal Cannula Nasal Cannula Oxygen Flow Rate 2 2 2 Fraction of Inspired Oxygen Sepsis Recent Fever Within 48 Hours Sepsis New/Unexplained Change in Mental Status Sepsis Action Taken by Nursing Oxygen Flow Rate - Titration Pulse Oximetry Post Tiitration 01/31/25 15:45 01/31/25 15:50 01/31/25 15:56 Temperature Temperature Source Pulse Rate 95 H 79 Pulse Rate from SpO2 Sensor 89 Respiratory Rate 19 17 Respiratory Effort / Characteristics Respiratory Depth Blood Pressure 120/73 141/90 H 131/81 Blood Pressure Mean 88 100 92 Blood Pressure Position Pulse Oximetry 93 97 91 Oxygen Delivery Method Nasal Cannula Nasal Cannula Nasal Cannula Oxygen Flow Rate 2 2 2 Fraction of Inspired Oxygen Sepsis Recent Fever Within 48 Hours Sepsis New/Unexplained Change in Mental Status Sepsis Action Taken by Nursing Oxygen Flow Rate - Titration Pulse Oximetry Post Tiitration 01/31/25 16:00 01/31/25 16:05 01/31/25 16:15 Temperature Temperature Source Pulse Rate 82 108 H 116 H Pulse Rate from SpO2 Sensor 84 Respiratory Rate 21 21 Respiratory Effort / Characteristics Respiratory Depth Blood Pressure 127/72 122/77 119/74 Blood Pressure Mean 90 109 79 Blood Pressure Position Pulse Oximetry 95 98 97 Oxygen Delivery Method Nasal Cannula Nasal Cannula Nasal Cannula Oxygen Flow Rate 2 2 2 Fraction of Inspired Oxygen Sepsis Recent Fever Within 48 Hours Sepsis New/Unexplained Change in Mental Status Sepsis Action Taken by Nursing Oxygen Flow Rate - Titration Pulse Oximetry Post Tiitration 01/31/25 16:30 Temperature Temperature Source Pulse Rate Pulse Rate from SpO2 Sensor Respiratory Rate 22 Respiratory Effort / Characteristics Respiratory Depth Blood Pressure 92/69 L Blood Pressure Mean 73 Blood Pressure Position Pulse Oximetry 98 Oxygen Delivery Method Nasal Cannula Oxygen Flow Rate 2 Fraction of Inspired Oxygen Sepsis Recent Fever Within 48 Hours Sepsis New/Unexplained Change in Mental Status Sepsis Action Taken by Nursing Oxygen Flow Rate - Titration Pulse Oximetry Post Tiitration Laboratory Data 01/31/25 14:12 01/31/25 14:12 Lab Results 01/31/25 01/31/25 01/31/25 Range/Units 14:12 14:49 15:53 WBC 6.04 (4.8-10.8) K/ul RBC 4.20 L (4.70-6.10) M/uL Hgb 13.4 L (14.0-18.0) g/dL Hct 37.9 L (42.0-52.0) % MCV 90.2 (80.0-100.0) fL MCH 31.9 (25.0-34.0) pg MCHC 35.4 (32.0-36.0) g/dL RDW Std Deviation 45.5 (36.4-46.3) fL RDW Coeff of Kvng 13.8 (11.5-14.5) % Plt Count 189 (130-400) K/uL MPV 9.2 L (9.4-12.4) fL Immature Gran % (Auto) 0.3 % Neut % (Auto) 81.1 % Lymph % (Auto) 7.6 % Patrick % (Auto) 7.1 % Eos % (Auto) 3.1 % Baso % (Auto) 0.8 % Neut # (Auto) 4.89 (1.40-6.50) K/uL Lymph # (Auto) 0.46 L (1.20-3.40) K/uL Patrick # (Auto) 0.43 (0.11-0.59) K/uL Eos # (Auto) 0.19 (0.00-0.50) K/uL Baso # (Auto) 0.05 (0.00-0.20) K/uL Immature Gran # (Auto) 0.02 (0.01-0.20) K/uL PT 11.2 (9.0-12.0) Seconds INR 1.1 (0.9-1.1) Sodium 139 (136-145) mmol/L Potassium 3.5 (3.5-5.1) mmol/L Chloride 108 H (98-107) mmol/L Carbon Dioxide 24 (21-32) mmol/L Anion Gap 7 (3-11) BUN 13 (6-23) mg/dl Creatinine 0.80 (0.6-1.4) mg/dl Est Cr Clr Drug Dosing Not Reportable eGFR 96.40 BUN/Creatinine Ratio 16.3 (10-20) Glucose 143 H (70-99(Fasting)) mg/dl Lactate 0.9 (0.4-2.0) mmol/L Calcium 9.1 (8.6-10.3) mg/dl Magnesium 2.0 (1.7-2.4) mg/dl Total Bilirubin 1.1 H (0.2-1.0) mg/dl Direct Bilirubin 0.2 (0-0.2) mg/dl AST 16 (13-39) U/L ALT 16 (7-52) U/L Alkaline Phosphatase 67 (34-104) U/L Troponin I High Sens 3.7 (0-20) pg/ml Total Protein 7.2 (6.0-8.3) gm/dl Albumin 3.6 (3.4-5.0) gm/dl Procalcitonin 0.04 (0-0.5) ng/ml Urine Color Yellow Urine Appearance Cloudy A (Clear) Urine pH 6.5 (4.5-7.5) Ur Specific [place] 1.013 (1.000-1.030) Urine Protein 2+ H (Negative) Urine Glucose (UA) Negative (Negative) Urine Ketones Negative (Negative) Urine Blood 2+ H (Negative) Urine Nitrite Positive A (Negative) Urine Bilirubin Negative (Negative) Urine Urobilinogen Negative (Negative) Ur Leukocyte Esterase 3+ H (Negative) Urine WBC (Auto) >50 H (0-5) /hpf Urine RBC (Auto) >20 H (0-2) /hpf U Hyaline Cast (Auto) 3-5 H (0-2) /lpf U Epithel Cells (Auto) 0-2 (0-2) /hpf Urine Bacteria (Auto) 4+ H (None Seen) Calcium Oxalate Crystal Present A (None Prsent) Urine Mucus Present A (None Prsent) Urine Comment Administered Medications Aspirin (Aspirin 81 Mg Ectab) 81 mg PO HS LEÓN Stop: 03/02/25 20:59 Last Admin: 01/31/25 19:45 Dose: 81 mg Documented By: ANTONINO Amiodarone HCl/Dextrose (Nexterone / D5w) 360 mg in 200 mls @ 16.667 mls/hr IV .Q12H LEÓN Stop: 03/02/25 20:59 Last Admin: 01/31/25 19:46 Dose: 0.5 mg/min, 16.7 mls/hr Documented By: ANTONINO Co-signed By: QASIM Cefepime HCl (Maxipime 2000mg) 2,000 mg in 20 mls @ 5 mls/min IV Q8H LEÓN; Protocol Stop: 02/10/25 20:59 Last Admin: 01/31/25 19:49 Dose: 5 mls/min Documented By: ANTONINO Heparin Sodium/Dextrose (Heparin 06834 Unit/500 Ml D5w) 25,000 units in 500 mls @ 18 mls/hr IV .Q24H LEÓN; Protocol Stop: 03/02/25 19:14 Last Admin: 01/31/25 19:45 Dose: 900 units/hr, 18 mls/hr Documented By: ANTONINO Co-signed By: QASIM Discontinued Medications Amiodarone HCl/Dextrose (Amiodarone 150mg / 100ml D5w) Confirm Administered Dose 150 mg IV .STK-MED ONE Stop: 01/31/25 14:27 Last Admin: 01/31/25 14:31 Dose: 150 mg Documented By: CAP Co-signed By: WILSON Amiodarone HCl/Dextrose (Amiodarone 360mg / 200ml D5w) Confirm Administered Dose 360 mg IV .STK-MED ONE Stop: 01/31/25 14:37 Last Admin: 01/31/25 14:47 Dose: 360 mg Documented By: CAP Co-signed By: MARIA DE JESUS Amiodarone HCl (Amiodarone Iv Bolus & Drip) 1 each IV NOW STA; Protocol Stop: 01/31/25 14:48 Last Admin: 01/31/25 15:21 Dose: Not Given Documented By: CAP Heparin Sodium/Dextrose (Heparin Iv Adult Wt-Based Low-Dose *No* Initial Bolus Protocol) 1 each IV Q15M LEÓN; Protocol Stop: 01/31/25 18:46 Last Admin: 01/31/25 22:45 Dose: Not Given Documented By: Admin: 01/31/25 22:45 Dose: Not Given Documented By: Admin: 01/31/25 22:45 Dose: Not Given Documented By: Admin: 01/31/25 21:41 Dose: Not Given Documented By: Admin: 01/31/25 19:46 Dose: Not Given Documented By: MNChandana Sodium Chloride (Nss) 1,000 mls @ 999 mls/hr IV .Q1H1M LEÓN Stop: 01/31/25 16:32 Last Infusion: 01/31/25 16:19 Dose: Infused Documented By: Admin: 01/31/25 15:20 Dose: 999 mls/hr Documented By: Infusion: 01/31/25 15:20 Dose: Infused Documented By: Admin: 01/31/25 14:15 Dose: 999 mls/hr Documented By: CAP Ceftriaxone Sodium (Rocephin) 2,000 mg in 50 mls @ 100 mls/hr IV NOW STA Stop: 01/31/25 15:16 Last Infusion: 01/31/25 16:12 Dose: Infused Documented By: Admin: 01/31/25 15:21 Dose: 100 mls/hr Documented By: CAP Amiodarone HCl/Dextrose (Nexterone / D5w) 150 mg in 100 mls @ 600 mls/hr IV NOW STA Stop: 01/31/25 14:56 Last Admin: 01/31/25 15:21 Dose: Not Given Documented By: CAP Amiodarone HCl/Dextrose (Nexterone / D5w) 360 mg in 200 mls @ 33.333 mls/hr IV ONE ONE Stop: 01/31/25 20:57 Last Admin: 01/31/25 15:20 Dose: Not Given Documented By: CAP Doxycycline Hyclate 100 mg/ (Dextrose) 100 mls @ 50 mls/hr IV NOW STA Stop: 01/31/25 17:24 Last Infusion: 01/31/25 18:23 Dose: Infused Documented By: Admin: 01/31/25 16:17 Dose: 50 mls/hr Documented By: SHARRON Vancomycin HCl 1,500 mg/ (Sodium Chloride) 530 mls @ 200 mls/hr IV NOW ONE Stop: 01/31/25 20:53 Last Infusion: 01/31/25 21:41 Dose: Infused Documented By: Admin: 01/31/25 19:39 Dose: 200 mls/hr Documented By: ANTONINO Ketamine HCl (Ketamine Hcl Inj 50 Mg/Ml 10 Ml Vial) Confirm Administered Dose 50 mg .ROUTE .STK-MED ONE Stop: 01/31/25 14:20 Last Admin: 01/31/25 14:38 Dose: 75 mg Documented By: [id number] Co-signed By: WILSON Miscellaneous (Stat Iv Infusion Titration Per Protocol) 1 each N/A NOW STA Stop: 01/31/25 14:48 Last Admin: 01/31/25 15:21 Dose: Not Given Documented By: EDUARDO Potassium Chloride (Potassium Chloride Crtab 20 Meq Tabcr) 40 meq PO NOW STA Stop: 01/31/25 17:00 Last Admin: 01/31/25 18:23 Dose: 40 meq Documented By: DARLING Imaging Data Radiologist's Impression: Chest X-Ray 01/31/25 14:32 XR chest 1V portable CLINICAL HISTORY: Sepsis COMPARISON STUDY: 04/15/2022 FINDINGS: Heart size and pulmonary vasculature are normal. There is patchy consolidation in the lung bases, right greater than left. No pleural effusion or pneumothorax. IMPRESSION: Bilateral pneumonia. Follow-up to resolution recommended. ACT 112: Negative or not required by law. Electronically signed by: Jose R Meeks M.D. 01/31/2025 3:18 PM Discharge Plan Visit Data Chief Complaint: Chest Pain Stated Complaint: CHEST PAIN, BLACK OUT BUT DIDN'T PASS OUT ED Provider: Maribel Burnette Discharge Problem: Atrial fibrillation with RVR, Pneumonia, Acute UTI Patient Disposition: Admitted As Inpatient Condition: Serious Discharge Instructions Interventions: ED Discharge Assessment Last Done: 01/31/25 17:18
[2025-01-31] MEDS: AMIODARONE / D5W 360 MG/200 ML BAG IV ONE (15:20)
--- NOTE | 2025-01-31 15:20 | XRay Report ---
XR chest 1V portable CLINICAL HISTORY: Sepsis COMPARISON STUDY: 04/15/2022 FINDINGS: Heart size and pulmonary vasculature are normal. There is patchy consolidation in the lung bases, right greater than left. No pleural effusion or pneumothorax. IMPRESSION: Bilateral pneumonia. Follow-up to resolution recommended. ACT 112: Negative or not required by law. Electronically signed by: Jose R Meeks M.D. 01/31/2025 3:18 PM
[2025-01-31] MEDS: AMIODARONE / D5W 150 MG/100 ML BAG IV STA (15:21)
[2025-01-31] MEDS: cefTRIAXone SODIUM 2,000 MG/50 ML BAG IV STA (15:21)
[2025-01-31] MEDS: AMIODARONE IV BOLUS & DRIP IV STA (15:21)
[2025-01-31] MEDS: STAT IV Infusion **Titration per Protocol STA (15:21)
[2025-01-31 16:15] LABS: Appearance Urine Cloudy (Clear); Bacteria Urine Automated 4+ (None Seen); Epithelial Cell Urine Auto 0-2 /hpf (0-2); Glucose Urine UA Negative (Negative); RBC Urine Automated >20 /hpf (0-2); WBC Urine Automated >50 /hpf (0-5)
[2025-01-31] MEDS: DOXYCYCLINE HYCLATE 100 MG in DEXTROSE 5% MINI-B 100 ML IV STA (16:17)
--- NOTE | 2025-01-31 16:35 | History & Physical Report ---
"Date of Service January 31, 2025 Assessment & Plan (1) Atrial fibrillation with RVR: (2) Catheter-associated urinary tract infection: (3) Pneumonia: (4) Adenocarcinoma of esophagus: Plan Justyn is a 70-year-old male with a past medical history of adenocarcinoma of the esophagus status post esophagectomy 11/2024, BPH with urinary retention, hypertension, and paroxysmal A-fib who presents to the ER with a sensation of palpitations and chest heaviness and a blackout sensation. Found to be in A-fib RVR, chest x-ray concerning for bilateral pneumonia and UA concerning for UTI. Will be admitted for cardio consultation and IV antibiotics #A-fib RVRwith history of such status post ablation x 2, not on beta-blockers (due to hypotension) or anticoagulation. Cardioversion was attempted twice in the ED without success and started on amnio drip. Consult cardiologyheparin drip started per their recommendations given recent hematuria Continue amiodarone drip Check echo Check TSH with a.m. labs AM CBC BMP and mag-give KCl 40 mEq p.o. x 1 #CAUTI POA | PNA - having issues with urinary retention since recent procedure, [facility] patient reported possible pus drainage from his Alexander 01/31. given ceftriaxone and doxycycline in the ED. Expand coverage to cefepime and vancomycin given recent hospitalization, immunosuppression with chemo and cancer MRSA nasal swab Blood cultures pending Urine culture pending Continue Flomax and dutasteride #adenocarcinoma of the esophagusstatus post esophagectomy 11/2024 Continue PPI daily Nutrition consult No current chemo or radiation, has had this in the past. Reports monthly injections to boost his immune system. Follows with [facility] oncology Dispo: Admit to PCU DVT prophy: Heparin drip updated at bedside on admission History of Present Illness Chief Complaint: afib rvr Primary Care Provider: Ryann Doty MD Justyn is a 70-year-old male with a past medical history of adenocarcinoma of the esophagus status post esophagectomy 11/2024, BPH with urinary retention, hypertension, and paroxysmal A-fib who presents to the ER with a sensation of palpitations and chest heaviness and a blackout sensation. Found to be in A-fib RVR, he has has A-fib in the past but was cardioverted twice and then taken off his beta-kb due to hypotension. He is not on blood thinners at baseline and did not receive blood thinners after his recent surgery. He has had issues with urinary retention/surgery and has a Alexander in place and follows with [facility]. He reports that he has been feeling well up until the onset of his A- fib around 1 PM today. Denies shortness of breath or cough. Denies fevers or chills at home. Has been moving his bowels like normal. Appetite has been okay he is able to eat a full diet after his recent surgery but he has lost 65 pounds since surgery, Does use nutritional supplements. he denies alcohol or tobacco use. He wishes to be a full code. ED course: Ceftriaxone 2 g IV x 1 Doxycycline 100 mg IV x 1 NSS x 2 L Failed cardioversion x 2 Amiodarone drip started Allergies Allergy/AdvReac Type Severity Reaction Status Date / Time Penicillins Allergy Intermediate RASH Verified 02/04/24 09:57 Home Medications Medication Instructions Recorded Confirmed Type ascorbic acid (vitamin C) 500 mg 500 mg PO QDD 06/02/18 02/04/24 History tablet (Vitamin C) [id number] acid-vit 1 tab PO QDD 06/02/18 02/04/24 History K-lycop 400 mcg-20 mcg-370 mcg tablet (Men's 50 Plus Multivitamin) aspirin 81 mg tablet,delayed 81 mg PO HS 07/04/20 02/04/24 History release omeprazole 20 mg capsule,delayed 40 mg PO DAILYBB 07/04/20 02/04/24 History release acetaminophen 500 mg tablet 1,000 mg (2 x 500 mg) PO Q8 #30 09/06/20 02/04/24 Rx tabs docusate sodium 100 mg capsule 100 mg PO BID #60 caps 09/06/20 02/04/24 Rx dutasteride 0.5 mg capsule 0.5 mg PO DAILY #90 caps 02/04/24 02/04/24 Rx (Avodart) tamsulosin 0.4 mg capsule (Flomax) 0.4 mg PO DAILY #90 caps 02/04/24 02/04/24 Rx Past Med/Surg History Problem List (Updated 01/31/25 @ 17:59 by Andrei Haynes MD) Chest pain Adenocarcinoma of esophagus Pneumonia Catheter-associated urinary tract infection Atrial fibrillation with RVR Dyslipidemia Status post catheter ablation of atrial flutter Sinus bradycardia Dyspnea on exertion BPH with obstruction/lower urinary tract symptoms (Chronic) Open finger fracture Acute bronchitis (Acute) Hypokalemia Acute renal insufficiency Sepsis (Acute) Acute UTI (Acute) Acute epididymitis (Acute) Atrial flutter, paroxysmal LVH (left ventricular hypertrophy) HLD (hyperlipidemia) GERD (gastroesophageal reflux disease) Hyperglycemia Epididymitis Laceration of right little finger w/o foreign body w/o damage to nail (Acute) Atrial flutter Surgical History History of hernia surgery History of partial thyroidectomy Family History Mother Diabetes Social History Smoking Status: Former smoker Second Hand Exposure: No; Do You Dip or Chew Tobacco: No; Hx Alcohol Use: No Hx Substance Use: No Preferred Language: Welsh Communication Ability: Effective Visual Impairment: No Limitations Hearing Ability: Normal [employer] Physician Required: No Beliefs That Will Affect Care: None marital status: Current Living Situation: Spouse current occupational status: employed current occupation: [employer] of the [employer] at [employer] Feels Safe at Home: Yes Assistive Devices: None Review of Systems Review of Systems: All systems reviewed & are unremarkable except as noted in Subjective Physical Exam Physical Exam: General: NAD, VS as above Resp: normal respiratory effort, on 2 L nasal cannula, diminished bilateral bases. No cough CV: A-fib rates in the 100, no murmur, Abd: normal bowel sounds, mild generalized tenderness, patient reports has been there since surgery, soft Extremities: Moves all extremities, no lower extremity edema, no calf tenderness Neuro: A&O x3, : Alexander in place Results & Data Results & Data Vital Signs (Past 12 Hours) Vital Signs Temp Pulse Resp BP Pulse Ox O2 Del Method O2 Flow Rate 01/31/25 16:00 82 21 127/72 95 Nasal Cannula 2 01/31/25 15:56 79 17 131/81 91 Nasal Cannula 2 01/31/25 15:50 95 H 19 141/90 H 97 Nasal Cannula 2 01/31/25 15:45 120/73 93 Nasal Cannula 2 01/31/25 15:41 85 16 127/78 92 Nasal Cannula 2 01/31/25 15:35 106 H 21 96/73 L 94 Nasal Cannula 2 01/31/25 15:30 83 15 106/65 94 Nasal Cannula 2 01/31/25 15:25 20 90/67 L 94 Nasal Cannula 2 01/31/25 15:20 110 H 21 112/70 94 01/31/25 15:15 121 H 22 106/67 95 Nasal Cannula 2 01/31/25 15:15 81 94 Nasal Cannula 2 01/31/25 15:15 106/67 01/31/25 15:12 123 H 21 01/31/25 15:10 97/69 L 01/31/25 15:09 114 H 24 94 Nasal Cannula 2 01/31/25 15:06 66 23 94 Nasal Cannula 2 01/31/25 15:05 95/72 L 01/31/25 15:03 91 H 26 H 94 Nasal Cannula 2 01/31/25 15:00 71 23 94 Nasal Cannula 2 01/31/25 15:00 109/73 01/31/25 14:57 79 23 93 Nasal Cannula 2 01/31/25 14:55 94/73 L 01/31/25 14:54 85 21 93 Nasal Cannula 2 01/31/25 14:51 99 H 20 94 Nasal Cannula 2 01/31/25 14:50 107/66 01/31/25 14:50 107/66 01/31/25 14:48 115 H 17 95 Nasal Cannula 2 01/31/25 14:45 102/75 01/31/25 14:45 119 H 15 92 Nasal Cannula 2 01/31/25 14:42 113 H 16 96 Nasal Cannula 2 01/31/25 14:40 118/76 01/31/25 14:39 122 H 22 96 Nasal Cannula 2 01/31/25 14:36 125 H 23 95 Nasal Cannula 2 01/31/25 14:35 112/83 01/31/25 14:33 139 H 15 95 Nasal Cannula 2 01/31/25 14:30 133 H 22 95 Nasal Cannula 2 01/31/25 14:30 134/111 H 01/31/25 14:28 139/95 01/31/25 14:27 151 H 26 H 87 L Nasal Cannula 2 01/31/25 14:27 Nasal Cannula 0 01/31/25 14:26 151/104 H 01/31/25 14:26 151/104 H 01/31/25 14:24 134 H 28 H 01/31/25 14:22 93/69 L 01/31/25 14:21 126 H 16 01/31/25 14:15 140 H 94 Room Air 01/31/25 14:14 80/57 L 01/31/25 14:14 135 H 01/31/25 13:59 98.1 F 94 H 18 86/56 L 94 Room Air FiO2 01/31/25 16:00 01/31/25 14:27 88 Laboratory Results CBC, chemistry reviewed Pro-Fadi reviewed Troponin reviewed UA reviewed Code Status & VTE Plan VTE Prophylaxis Plan VTE Prophylaxis will be ordered: Yes Supervising Physician Co-Signing Physician Notes PA Supervision Note: I personally saw and examined the patient. I verified all nash points and agree with VINI Lei with the following exceptions and/or additions: S-patient is here with significant lightheadedness and heart palpitations, found to be in rapid atrial fibrillation with blood pressure very low at 80s systolic. He denies cough or fevers or chills. He has noticed some small clots in his Alexander catheter and some blood draining around the catheter and pus for the last 2 weeks. No abdominal pains. No shortness of breath. He had synchronized cardioversion x 2 without success and was placed on amiodarone drip. Blood pressures and heart rate did improve on amiodarone drip and he was starting to convert back and forth between sinus and atrial fibrillation when I saw him. I spoke to the data analysis manager at the bedside at the time of admission. Patient found to have pneumonia on CXR and evidence of UTI on UA after Alexander catheter was exchanged. History and ROS otherwise reviewed as above. O- Vitals reviewed Gen: AAOx3, NAD HEENT: Anicteric sclerae, EOMI CV: Irregularly irregular no mgr nl S1S2 Pulm: Crackles noted at right lower lung field Abd: +BS soft NT ND no masses or hernias Ext: No edema Skin: No rashes, warm/dry Neuro: Full strength throughout CBC, BMP, troponin, LFTs reviewed A/[id number]-old male here with history noted as above with rapid atrial fibrillation, pneumonia, and UTI associated with Alexander catheter. - Continue amiodarone drip, start heparin drip for anticoagulation in case of increasing hematuria-eventually convert to Eliquis - Appreciate cardiology consultation - Echocardiogram, trend serial troponin - Give broad-spectrum antibiotics given that he is immunosuppressed on immuno therapy for his esophageal cancer-Zosyn, vancomycin, and doxycycline for atypicals - Same antibiotics will cover for UTI - Follow blood cultures, urine culture PG Care Time/CCT Total # of Minutes Spent Total Time Spent with Patient: Total time spent is greater than 50% in coordination of care (as documented) at patient's floor/unit and/or counseling patient: Coding Level of Care Code 55172 INT INP/OBS CARE MIN Diagnoses Atrial fibrillation with RVR I48.91 Catheter-associated urinary tract infection T83.511A; N39.0 Pneumonia J18.9 Adenocarcinoma of esophagus C15.9"
[2025-01-31] MEDS ORDERED: VANCOMYCIN CONSULT ACTIVE PRN (16:59)
--- NOTE | 2025-01-31 17:19 | Cardiology Consultation ---
Date of Consultation January 31, 2025 Assessment & Plan (1) Atrial fibrillation with RVR: (2) Status post catheter ablation of atrial flutter: (3) Atrial flutter, paroxysmal: (4) Chest pain: Plan ASSESSMENT/PLAN: 1. Atrial fibrillation: New diagnosis. History of atrial flutter. Was very symptomatic in the setting of pneumonia and urinary tract infection. Cardioversion attempts in the ER. Was noted to be predominantly in sinus rhythm during evaluation. Amiodarone infusion initiated in the ER. Can continue amiodarone for now. We discussed the diagnosis. Could consider ablation in the future. Recommend TSH which is pending for tomorrow. Monitor TSH and kelley saminase levels while on amiodarone. Potential adverse reactions of amiodarone discussed with patient and his at the bedside. Recommend anticoagulation for stroke risk reduction. Can use heparin drip initially given reported hematuria, and ultimately oral therapy such as Eliquis. Recommend echo. Repeat ECG. 2. Atrial flutter s/p ablation: No documented atrial flutter since ablation. H e was quite symptomatic with that in the past. 3. Chest pain: Seems to be correlating with atrial arrhythmia and tachycardia as it would subside during evaluation while in sinus rhythm, and recur with short atrial runs. Initial high-sensitivity troponin negative and would not be surprised if it becomes elevated given hemodynamically significant atrial fibrillation with hypotension on presentation. Echo as above. 4. Pneumonia and UTI: As per primary hospitalist service. 5. Disposition: Cardiology will continue to follow. Plan of care discussed with Dr. Barrios at the bedside. Thank you for allowing me to participate in the care of your patient. Please call for any other questions or concerns. Sincerely, Zane Haynes M.D. History of Present Illness Reason for Consultation: Symptomatic atrial fibrillation Requesting Physician: Maame Lei Attending Physician: Dr. Barrios History of Present Illness Mr. Monroy is a very pleasant 70-year-old gentleman with a history significant for atrial flutter s/p ablation (02/20/2022), esophageal cancer (s/p chemo Nov 2024; s/p esophageal/gastric surgery 11/23/2024 [facility] [place]), and indwelling urinary catheter. He has a history of atrial flutter which was very symptomatic and recurred despite flecainide. He underwent atrial flutter ablation in 2021 and had no recurrence. He presented on 01/31/2025 with near syncope. Near syncope occurred abruptly at approximately 1:30 PM on the day of presentation. He described his vision going black but states he never lost consciousness fully. It was accompanied by palpitations and substernal chest tightness. He states that these were the same symptoms he had with atrial flutter in the past. Upon arrival to the ER, he was noted to be in atrial fibrillation with rapid ventricular response. He was hypotensive with systolic blood pressure as low as 80 mmHg and appeared pale and diaphoretic. ER provider attempted cardioversion x 2 per report. The cardi oversion was reportedly unsuccessful and he was placed on intravenous amiodarone. After notification from primary service, I presented to the bedside in the ER. Unfortunately telemetry bank was not able to be viewed at the time as beds were being switched. On telemetry however at the bedside, he was predominantly in sinus rhythm and would have nonsustained atrial runs, possibly atrial fibrillat ion versus atrial tachycardia. The chest tightness would return with the atrial runs, which were tachycardic. His blood pressure however was much improved and near syncope did not return. He was diagnosed with pneumonia in the ER. He reports that he has had issues with hematuria recently with his indwelling catheter and recently had the catheter changed approximately 2 weeks ago due to purulent discharge from his urethra, around his catheter. He denies melena, hematochezia, fever, nausea, vomiting, diarrhea. He has had the following studies/procedures: 1. Echo 06/06/2014: Normal LV size, wall motion, systolic function. EF 55-60%. Moderate LVH. No significant valvular abnormalities. Sinus rhythm. 2. Stress echo 09/26/2017: Negative at 71% MPHR. No arrhythmia. Good exercise tolerance, 8 minutes 56 seconds Tank protocol. 3. Stress echo 01/01/2022: No ischemic changes at 76% MPHR. 7 minutes 36 seconds Tank protocol. Resting EF 60 to 65%. Normal wall motion. Mild LVH. No significant valvular abnormalities. 4. Nuclear stress 02/05/2022: No ischemia. EF 55%. Normal wall motion. 5. Atrial flutter ablation 02/20/2022 JAYY : Successful creation of bidirectional block through cavil tricuspid isthmus. 6. Holter 10/02/2022 to 10/07/2022 [facility] PG: Sinus rhythm. Average HR 64 (41 to 126 bpm). No arrhythmia. Rare supraventricular ectopic complexes. Frequent PVCs. "Fluttering" occurred during normal sinus rhythm and on occasion, isolated PVC. Review of systems: As above. Family history: No known premature CAD. Social history: He quit smoking greater than 20 years ago. Denies alcohol or drugs. He is and lives with his . He has one grown daughter, and grandchildren. He is retired. His was present at the bedside in the ER. Allergies Allergy/AdvReac Type Severity Reaction Status Date / Time Penicillins Allergy Intermediate RASH Verified 02/04/24 09:57 Home Medications Medication Instructions Recorded Confirmed Type ascorbic acid (vitamin C) 500 mg 500 mg PO QDD 06/02/18 02/04/24 History tablet (Vitamin C) [id number] acid-vit 1 tab PO QDD 06/02/18 02/04/24 History K-lycop 400 mcg-20 mcg-370 mcg tablet (Men's 50 Plus Multivitamin) aspirin 81 mg tablet,delayed 81 mg PO HS 07/04/20 02/04/24 History release omeprazole 20 mg capsule,delayed 40 mg PO DAILYBB 07/04/20 02/04/24 History release acetaminophen 500 mg tablet 1,000 mg (2 x 500 mg) PO Q8 #30 09/06/20 02/04/24 Rx tabs docusate sodium 100 mg capsule 100 mg PO BID #60 caps 09/06/20 02/04/24 Rx dutasteride 0.5 mg capsule 0.5 mg PO DAILY #90 caps 02/04/24 02/04/24 Rx (Avodart) tamsulosin 0.4 mg capsule (Flomax) 0.4 mg PO DAILY #90 caps 02/04/24 02/04/24 Rx Problem List (Updated 01/31/25 @ 17:59 by Andrei Haynes MD) Chest pain Adenocarcinoma of esophagus Pneumonia Catheter-associated urinary tract infection Atrial fibrillation with RVR Dyslipidemia Status post catheter ablation of atrial flutter Sinus bradycardia Dyspnea on exertion BPH with obstruction/lower urinary tract symptoms (Chronic) Open finger fracture Acute bronchitis (Acute) Hypokalemia Acute renal insufficiency Sepsis (Acute) Acute UTI (Acute) Acute epididymitis (Acute) Atrial flutter, paroxysmal LVH (left ventricular hypertrophy) HLD (hyperlipidemia) GERD (gastroesophageal reflux disease) Hyperglycemia Epididymitis Laceration of right little finger w/o foreign body w/o damage to nail (Acute) Atrial flutter Patient History Surgical History History of hernia surgery History of partial thyroidectomy Family History Mother Diabetes Social History Smoking Status: Former smoker Hx Alcohol Use: No Hx Substance Use: No Preferred Language: Greek Communication Ability: Effective Visual Impairment: No Limitations Hearing Ability: Normal Medical Laboratory Technologist Required: No Beliefs That Will Affect Care: None marital status: Current Living Situation: Spouse current occupational status: employed 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 Alert and oriented. HEENT: Anicteric sclera. Neck: No JVD. No bruits. Normal carotid upstrokes bilaterally. Cardiac: Regular, with occasional irregularity. Normal S1-S2. No murmurs, rubs, or gallops. Pulmonary: Decreased breath sounds bilaterally, but otherwise clear to auscultation. Abdomen: Soft, nontender, nondistended, with normoactive bowel sounds. No bruits noted. Extremities: 2+ radial pulses bilaterally. 2+ posterior tibialis pulses bilaterally. No edema or cyanosis. Results & Data Vital Signs (Past 12 Hours) Vital Signs Temp Pulse Pulse Resp BP BP Pulse Ox 01/31/25 17:00 102 H 18 119/79 97 01/31/25 16:54 75 20 125/99 97 01/31/25 16:30 22 92/69 L 98 01/31/25 16:15 116 H 119/74 97 01/31/25 16:05 108 H 21 122/77 98 01/31/25 16:00 82 21 127/72 95 01/31/25 15:56 79 17 131/81 91 01/31/25 15:50 95 H 19 141/90 H 97 01/31/25 15:45 120/73 93 01/31/25 15:41 85 16 127/78 92 01/31/25 15:35 106 H 21 96/73 L 94 01/31/25 15:30 83 15 106/65 94 01/31/25 15:25 20 90/67 L 94 01/31/25 15:20 110 H 21 112/70 94 01/31/25 15:15 121 H 22 106/67 95 01/31/25 15:15 81 94 01/31/25 15:15 106/67 01/31/25 15:12 123 H 21 01/31/25 15:10 97/69 L 01/31/25 15:09 114 H 24 94 01/31/25 15:06 66 23 94 01/31/25 15:05 95/72 L 01/31/25 15:03 91 H 26 H 94 01/31/25 15:00 71 23 94 01/31/25 15:00 109/73 01/31/25 14:57 79 23 93 01/31/25 14:55 94/73 L 01/31/25 14:54 85 21 93 01/31/25 14:51 99 H 20 94 01/31/25 14:50 107/66 01/31/25 14:50 107/66 01/31/25 14:48 115 H 17 95 01/31/25 14:45 102/75 01/31/25 14:45 119 H 15 92 01/31/25 14:42 113 H 16 96 01/31/25 14:40 118/76 01/31/25 14:39 122 H 22 96 01/31/25 14:36 125 H 23 95 01/31/25 14:35 112/83 01/31/25 14:33 139 H 15 95 01/31/25 14:30 133 H 22 95 01/31/25 14:30 134/111 H 01/31/25 14:28 139/95 01/31/25 14:27 151 H 26 H 87 L 01/31/25 14:27 01/31/25 14:26 151/104 H 01/31/25 14:26 151/104 H 01/31/25 14:24 134 H 28 H 01/31/25 14:22 93/69 L 01/31/25 14:21 126 H 16 01/31/25 14:15 140 H 94 01/31/25 14:14 80/57 L 01/31/25 14:14 135 H 01/31/25 13:59 36.7 C 94 H 18 86/56 L 94 O2 Del Method O2 Flow Rate FiO2 01/31/25 17:00 Room Air 01/31/25 16:54 01/31/25 16:30 Nasal Cannula 2 01/31/25 16:15 Nasal Cannula 2 01/31/25 16:05 Nasal Cannula 2 01/31/25 16:00 Nasal Cannula 2 01/31/25 15:56 Nasal Cannula 2 01/31/25 15:50 Nasal Cannula 2 01/31/25 15:45 Nasal Cannula 2 01/31/25 15:41 Nasal Cannula 2 01/31/25 15:35 Nasal Cannula 2 01/31/25 15:30 Nasal Cannula 2 01/31/25 15:25 Nasal Cannula 2 01/31/25 15:20 01/31/25 15:15 Nasal Cannula 2 01/31/25 15:15 Nasal Cannula 2 01/31/25 15:15 01/31/25 15:12 01/31/25 15:10 01/31/25 15:09 Nasal Cannula 2 01/31/25 15:06 Nasal Cannula 2 01/31/25 15:05 01/31/25 15:03 Nasal Cannula 2 01/31/25 15:00 Nasal Cannula 2 01/31/25 15:00 01/31/25 14:57 Nasal Cannula 2 01/31/25 14:55 01/31/25 14:54 Nasal Cannula 2 01/31/25 14:51 Nasal Cannula 2 01/31/25 14:50 01/31/25 14:50 01/31/25 14:48 Nasal Cannula 2 01/31/25 14:45 01/31/25 14:45 Nasal Cannula 2 01/31/25 14:42 Nasal Cannula 2 01/31/25 14:40 01/31/25 14:39 Nasal Cannula 2 01/31/25 14:36 Nasal Cannula 2 01/31/25 14:35 01/31/25 14:33 Nasal Cannula 2 01/31/25 14:30 Nasal Cannula 2 01/31/25 14:30 01/31/25 14:28 01/31/25 14:27 Nasal Cannula 2 01/31/25 14:27 Nasal Cannula 0 88 01/31/25 14:26 01/31/25 14:26 01/31/25 14:24 01/31/25 14:22 01/31/25 14:21 01/31/25 14:15 Room Air 01/31/25 14:14 01/31/25 14:14 01/31/25 13:59 Room Air Laboratory Results Laboratory Results - last 24 hr 01/31/25 01/31/25 01/31/25 14:12 14:49 15:53 WBC 6.04 RBC 4.20 L Hgb 13.4 L Hct 37.9 L MCV 90.2 MCH 31.9 MCHC 35.4 RDW Std Deviation 45.5 RDW Coeff of Kvng 13.8 Plt Count 189 MPV 9.2 L Immature Gran % (Auto) 0.3 Neut % (Auto) 81.1 Lymph % (Auto) 7.6 [place] % (Auto) 7.1 Eos % (Auto) 3.1 Baso % (Auto) 0.8 Neut # (Auto) 4.89 Lymph # (Auto) 0.46 L [place] # (Auto) 0.43 Eos # (Auto) 0.19 Baso # (Auto) 0.05 Immature Gran # (Auto) 0.02 Sodium 139 Potassium 3.5 Chloride 108 H Carbon Dioxide 24 Anion Gap 7 BUN 13 Creatinine 0.80 Est Cr Clr Drug Dosing Not Reportable eGFR 96.40 BUN/Creatinine Ratio 16.3 Glucose 143 H Lactate 0.9 Calcium 9.1 Magnesium 2.0 Total Bilirubin 1.1 H Direct Bilirubin 0.2 AST 16 ALT 16 Alkaline Phosphatase 67 Troponin I High Sens 3.7 Total Protein 7.2 Albumin 3.6 Procalcitonin 0.04 Urine Color Yellow Urine Appearance Cloudy A Urine pH 6.5 Ur Specific [place] 1.013 Urine Protein 2+ H Urine Glucose (UA) Negative Urine Ketones Negative Urine Blood 2+ H Urine Nitrite Positive A Urine Bilirubin Negative Urine Urobilinogen Negative Ur Leukocyte Esterase 3+ H Urine WBC (Auto) >50 H Urine RBC (Auto) >20 H U Hyaline Cast (Auto) 3-5 H U Epithel Cells (Auto) 0-2 Urine Bacteria (Auto) 4+ H Calcium Oxalate Crystal Present A Urine Mucus Present A Urine Comment Diagnostic Findings Labs reviewed and notable for mild anemia, normal potassium, stable renal function, normal lactate, normal magnesium, normal transaminase levels, normal procalcitonin. ECG personally reviewed from 01/31/2025 at 1408: A-fib with RVR [address] abnormality. History and physical report reviewed. Chest x-ray report reviewed from 01/31/2025: Bilateral pneumonia per radiology. Medications Administered Current Inpatient Medications Heparin Sodium/Dextrose (Heparin Iv Adult Wt-Based Low-Dose *No* Initial Bolus Protocol) 1 each IV Q15M LEÓN; Protocol Stop: 01/31/25 18:46 Amiodarone HCl/Dextrose (Nexterone / D5w) 360 mg in 200 mls @ 33.333 mls/hr IV ONE ONE Stop: 01/31/25 20:57 Last Admin: 01/31/25 15:20 Dose: Not Given Amiodarone HCl/Dextrose (Nexterone / D5w) 360 mg in 200 mls @ 16.667 mls/hr IV .Q12H LEÓN Stop: 03/02/25 20:59 Cefepime HCl (Maxipime 2000mg) 2,000 mg in 20 mls @ 5 mls/min IV Q8H LEÓN; Protocol Stop: 02/10/25 16:59 Vancomycin HCl 1,500 mg/ (Sodium Chloride) 530 mls @ 200 mls/hr IV NOW ONE Stop: 01/31/25 19:37 Heparin Sodium/Dextrose (Heparin 60417 Unit/500 Ml D5w) 25,000 units in 500 mls @ 0.02 mls/hr IV .Q24H LEÓN; Protocol Stop: 03/02/25 17:44 Miscellaneous Information (Vancomycin Consult Active) 1 each N/A UD PRN PRN Reason: Consult Stop: 03/02/25 16:58 PG Care Time/CCT Total # of Minutes Spent Total Time Spent with Patient: Total time spent is greater than 50% in coordination of care (as documented) at patient's floor/unit and/or counseling patient: Coding Level of Care Code 87294 INT INP/OBS CARE 3/75MIN Diagnoses Atrial fibrillation with RVR I48.91 Status post catheter ablation of atrial flutter Z98.890 Atrial flutter, paroxysmal I48.92 Chest pain R07.9
[2025-01-31] MEDS ORDERED: ACETAMINOPHEN 500 MG TAB PO PRN (18:13)
[2025-01-31] MEDS ORDERED: ONDANSETRON INJ 2 MG/ML 2 ML VIAL IV PRN (18:13)
[2025-01-31] MEDS ORDERED: POLYETHYLENE (MIRALAX) 17 GM PACK PO PRN (18:13)
[2025-01-31] MEDS ORDERED: MELATONIN 3 MG TAB PO PRN (18:13)
[2025-01-31] MEDS: POTASSIUM CHLORIDE CRTAB 20 MEQ TABCR PO STA (18:23)
[2025-01-31 18:38] LABS: INR 1.1 (0.9-1.1); Prothrombin Time 11.2 Seconds (9.0-12.0)
[2025-01-31] MEDS ORDERED: KETAMINE HCL 10MG/ML SYR IV STA (19:16)
[2025-01-31] MEDS: VANCOMYCIN HCL 1,500 MG in SODIUM CHLORIDE 0.9% 500 ML IV ONE (19:39)
[2025-01-31] MEDS: ASPIRIN 81 MG ECTAB PO SCH (19:45)
[2025-01-31] MEDS: HEPARIN 25000 UNIT/500 ML D5W 25,000 UNITS/500 ML BAG IV SCH (19:45)
[2025-01-31] MEDS: Heparin IV Adult Wt-Based Low-Dose *NO* INITIAL Bolus Protocol IV SCH (19:46)
[2025-01-31] MEDS: AMIODARONE / D5W 360 MG/200 ML BAG IV SCH (19:46)
[2025-01-31] MEDS: CEFEPIME 2000MG 2,000 MG/20 ML SYR IV SCH (19:49)
--- NOTE | 2025-01-31 21:00 | Pharmacy Report ---
Pharmacy PK ABX Note - Date of Service January 31, 2025 - Assessment and Plan Assessment 70 year old M with PMH of adenocarcinoma of the esophagus status post esophagectomy 11/2024, BPH with urinary retention, hypertension, and paroxysmal A-fib who presented with chest palpitations and hypotension, found to be in A- fib with RVR. Patient had symptoms of presyncope. Chest x-ray obtained and is consistent with b/l pneumonia. Started empiric vancomycin, cefepime and doxycycline for CAP. Pertinent microbiologic data includes: * BC x2 pending * Urine culture pending * MRSA nasal swab pending Plan Vancomycin * Loading dose: 1500 mg IV x 1 * Maintenance dose: 1000 mg IV every 12 hours * Regimen is predicted to achieve target AUC/ADINA of 400-600 mg/L.hr * Random level to be obtained if therapy is continued beyond 48 hours or warranted by change in clinical status Pharmacy will continue to follow and will adjust dose/frequency as necessary. Thank you. Pharmacy has transitioned to AUC monitoring for vancomycin. AUC/ADINA is the preferred PK/PD target and is associated with decreased risk of nephrotoxicity compared to traditional trough targets.
--- NOTE | 2025-02-01 01:00 | Emergency Department Note ---
Pre Sedation Assessment Vital Signs Temp Pulse Resp BP Pulse Ox O2 Del Method O2 Flow Rate 01/31/25 16:30 22 92/69 L 98 Nasal Cannula 2 01/31/25 16:15 116 H 119/74 97 Nasal Cannula 2 01/31/25 16:05 108 H 21 122/77 98 Nasal Cannula 2 01/31/25 16:00 82 21 127/72 95 Nasal Cannula 2 01/31/25 15:56 79 17 131/81 91 Nasal Cannula 2 01/31/25 15:50 95 H 19 141/90 H 97 Nasal Cannula 2 01/31/25 15:45 120/73 93 Nasal Cannula 2 01/31/25 15:41 85 16 127/78 92 Nasal Cannula 2 01/31/25 15:35 106 H 21 96/73 L 94 Nasal Cannula 2 01/31/25 15:30 83 15 106/65 94 Nasal Cannula 2 01/31/25 15:25 20 90/67 L 94 Nasal Cannula 2 01/31/25 15:20 110 H 21 112/70 94 01/31/25 15:15 121 H 22 106/67 95 Nasal Cannula 2 01/31/25 15:15 81 94 Nasal Cannula 2 01/31/25 15:15 106/67 01/31/25 15:12 123 H 21 01/31/25 15:10 97/69 L 01/31/25 15:09 114 H 24 94 Nasal Cannula 2 01/31/25 15:06 66 23 94 Nasal Cannula 2 01/31/25 15:05 95/72 L 01/31/25 15:03 91 H 26 H 94 Nasal Cannula 2 01/31/25 15:00 71 23 94 Nasal Cannula 2 01/31/25 15:00 109/73 01/31/25 14:57 79 23 93 Nasal Cannula 2 01/31/25 14:55 94/73 L 01/31/25 14:54 85 21 93 Nasal Cannula 2 01/31/25 14:51 99 H 20 94 Nasal Cannula 2 01/31/25 14:50 107/66 01/31/25 14:50 107/66 01/31/25 14:48 115 H 17 95 Nasal Cannula 2 01/31/25 14:45 102/75 01/31/25 14:45 119 H 15 92 Nasal Cannula 2 01/31/25 14:42 113 H 16 96 Nasal Cannula 2 01/31/25 14:40 118/76 01/31/25 14:39 122 H 22 96 Nasal Cannula 2 01/31/25 14:36 125 H 23 95 Nasal Cannula 2 01/31/25 14:35 112/83 01/31/25 14:33 139 H 15 95 Nasal Cannula 2 01/31/25 14:30 133 H 22 95 Nasal Cannula 2 01/31/25 14:30 134/111 H 01/31/25 14:28 139/95 01/31/25 14:27 151 H 26 H 87 L Nasal Cannula 2 01/31/25 14:27 Nasal Cannula 0 01/31/25 14:26 151/104 H 01/31/25 14:26 151/104 H 01/31/25 14:24 134 H 28 H 01/31/25 14:22 93/69 L 01/31/25 14:21 126 H 16 01/31/25 14:15 140 H 94 Room Air 01/31/25 14:14 80/57 L 01/31/25 14:14 135 H 01/31/25 13:59 36.7 C 94 H 18 86/56 L 94 Room Air FiO2 01/31/25 16:30 01/31/25 16:15 01/31/25 16:05 01/31/25 16:00 01/31/25 15:56 01/31/25 15:50 01/31/25 15:45 01/31/25 15:41 01/31/25 15:35 01/31/25 15:30 01/31/25 15:25 01/31/25 15:20 01/31/25 15:15 01/31/25 15:15 01/31/25 15:15 01/31/25 15:12 01/31/25 15:10 01/31/25 15:09 01/31/25 15:06 01/31/25 15:05 01/31/25 15:03 01/31/25 15:00 01/31/25 15:00 01/31/25 14:57 01/31/25 14:55 01/31/25 14:54 01/31/25 14:51 01/31/25 14:50 01/31/25 14:50 01/31/25 14:48 01/31/25 14:45 01/31/25 14:45 01/31/25 14:42 01/31/25 14:40 01/31/25 14:39 01/31/25 14:36 01/31/25 14:35 01/31/25 14:33 01/31/25 14:30 01/31/25 14:30 01/31/25 14:28 01/31/25 14:27 01/31/25 14:27 88 01/31/25 14:26 01/31/25 14:26 01/31/25 14:24 01/31/25 14:22 01/31/25 14:21 01/31/25 14:15 01/31/25 14:14 01/31/25 14:14 01/31/25 13:59 Pre-Sedation Airway Assessment Smoking Status: Former smoker Hx Sleep Apnea: No Hx Difficult Intubation: No Mallampati Class: II ASA: ASA3 Notes The planned sedation has been discussed with the patient. Informed Consent was obtained. I have identified the patient, determined the appropriateness of sedation and have assessed the patient immediately prior to the procedure. All medicine(s) and interventions are by my order.
--- NOTE | 2025-02-01 01:01 | Emergency Department Note ---
Post Sedation Assessment Vital Signs Temp Pulse Resp BP Pulse Ox O2 Del Method O2 Flow Rate 01/31/25 16:30 22 92/69 L 98 Nasal Cannula 2 01/31/25 16:15 116 H 119/74 97 Nasal Cannula 2 01/31/25 16:05 108 H 21 122/77 98 Nasal Cannula 2 01/31/25 16:00 82 21 127/72 95 Nasal Cannula 2 01/31/25 15:56 79 17 131/81 91 Nasal Cannula 2 01/31/25 15:50 95 H 19 141/90 H 97 Nasal Cannula 2 01/31/25 15:45 120/73 93 Nasal Cannula 2 01/31/25 15:41 85 16 127/78 92 Nasal Cannula 2 01/31/25 15:35 106 H 21 96/73 L 94 Nasal Cannula 2 01/31/25 15:30 83 15 106/65 94 Nasal Cannula 2 01/31/25 15:25 20 90/67 L 94 Nasal Cannula 2 01/31/25 15:20 110 H 21 112/70 94 01/31/25 15:15 121 H 22 106/67 95 Nasal Cannula 2 01/31/25 15:15 81 94 Nasal Cannula 2 01/31/25 15:15 106/67 01/31/25 15:12 123 H 21 01/31/25 15:10 97/69 L 01/31/25 15:09 114 H 24 94 Nasal Cannula 2 01/31/25 15:06 66 23 94 Nasal Cannula 2 01/31/25 15:05 95/72 L 01/31/25 15:03 91 H 26 H 94 Nasal Cannula 2 01/31/25 15:00 71 23 94 Nasal Cannula 2 01/31/25 15:00 109/73 01/31/25 14:57 79 23 93 Nasal Cannula 2 01/31/25 14:55 94/73 L 01/31/25 14:54 85 21 93 Nasal Cannula 2 01/31/25 14:51 99 H 20 94 Nasal Cannula 2 01/31/25 14:50 107/66 01/31/25 14:50 107/66 01/31/25 14:48 115 H 17 95 Nasal Cannula 2 01/31/25 14:45 102/75 01/31/25 14:45 119 H 15 92 Nasal Cannula 2 01/31/25 14:42 113 H 16 96 Nasal Cannula 2 01/31/25 14:40 118/76 01/31/25 14:39 122 H 22 96 Nasal Cannula 2 01/31/25 14:36 125 H 23 95 Nasal Cannula 2 01/31/25 14:35 112/83 01/31/25 14:33 139 H 15 95 Nasal Cannula 2 01/31/25 14:30 133 H 22 95 Nasal Cannula 2 01/31/25 14:30 134/111 H 01/31/25 14:28 139/95 01/31/25 14:27 151 H 26 H 87 L Nasal Cannula 2 01/31/25 14:27 Nasal Cannula 0 01/31/25 14:26 151/104 H 01/31/25 14:26 151/104 H 01/31/25 14:24 134 H 28 H 01/31/25 14:22 93/69 L 01/31/25 14:21 126 H 16 01/31/25 14:15 140 H 94 Room Air 01/31/25 14:14 80/57 L 01/31/25 14:14 135 H 01/31/25 13:59 36.7 C 94 H 18 86/56 L 94 Room Air FiO2 01/31/25 16:30 01/31/25 16:15 01/31/25 16:05 01/31/25 16:00 01/31/25 15:56 01/31/25 15:50 01/31/25 15:45 01/31/25 15:41 01/31/25 15:35 01/31/25 15:30 01/31/25 15:25 01/31/25 15:20 01/31/25 15:15 01/31/25 15:15 01/31/25 15:15 01/31/25 15:12 01/31/25 15:10 01/31/25 15:09 01/31/25 15:06 01/31/25 15:05 01/31/25 15:03 01/31/25 15:00 01/31/25 15:00 01/31/25 14:57 01/31/25 14:55 01/31/25 14:54 01/31/25 14:51 01/31/25 14:50 01/31/25 14:50 01/31/25 14:48 01/31/25 14:45 01/31/25 14:45 01/31/25 14:42 01/31/25 14:40 01/31/25 14:39 01/31/25 14:36 01/31/25 14:35 01/31/25 14:33 01/31/25 14:30 01/31/25 14:30 01/31/25 14:28 01/31/25 14:27 01/31/25 14:27 88 01/31/25 14:26 01/31/25 14:26 01/31/25 14:24 01/31/25 14:22 01/31/25 14:21 01/31/25 14:15 01/31/25 14:14 01/31/25 14:14 01/31/25 13:59 Recovery Score Activity: Moves 4 extremities Respiration: Deep Breath/Cough Circulation: +/-20% PreAnes Value Consciousness: Fully Awake Oxygen Saturation: > 92% On Room Air Discharge Sedation Unexpected Event: None Post Sedation Plan On clinical assessment, the patient appears to have tolerated the sedation without complications. Patient is recovering as anticipated. Patient will continue to be monitored by nursing and may be discharged when sedation discharge criteria are met per below protocol. Upon Completions of procedure up to 15 minutes continue every 5 minute vital signs and the P.A.R. score; then discharge to a Phase I or Fast Track to Phase II per the following guidelines: * Discharge Patient to appropriate Phase II area if PAR is 8 or greater or return to pre- procedure baseline. The post - procedure orders will be as directed. * If PAR score is less than 8 or not return to pre-procedure baseline then patient will follow Phase I monitoring till PAR is reached for Phase II. The Phase I may be done in procedure room or may call to secure a Phase I area. * If naloxone or flumazenil are used for reversal, hold in Phase I for continued monitoring from when last reversal dose was given for a minimum of 60 minutes or longer pending the nurse and/or physician discretion of patient condition before discharge to Phase II. Please call the Sedation Physician to re-evaluate and complete post-note for discharge to Phase II area. Do NOT discharge from procedure sedation or Phase 1 until post- sedation evaluation note is complete by procedure /sedation MD Sedation Discharge Instructions to be given to the patient at discharge to home. Sedation Data Time Out Team Members Agree on the Following: Correct Patient and Correct Procedure
[2025-02-01 04:32] LABS: Hematocrit (blood only) 33.9 % (42.0-52.0); Hemoglobin 11.7 g/dL (14.0-18.0); Mean Corpuscular Hemoglobin 31.4 pg (25.0-34.0); Mean Corpuscular Volume 90.9 fL (80.0-100.0); Platelet Count 161 K/uL (130-400); RDW Standard Deviation 46.7 fL (36.4-46.3); Red Blood Count 3.73 M/uL (4.70-6.10); White Blood Count 5.07 K/ul (4.8-10.8)
[2025-02-01 04:51] LABS: Alanine Aminotransferase 13.0 U/L (7-52); Albumin Globulin Ratio 1.0 (0.9-2); Albumin Level 3.0 gm/dl (3.4-5.0); Alkaline Phosphatase 56.0 U/L (34-104); Anion Gap 5.0 (3-11); Bilirubin,Total 0.6 mg/dl (0.2-1.0); Blood Urea Nitrogen 11.0 mg/dl (6-23); Calcium 8.5 mg/dl (8.6-10.3); Carbon Dioxide 22.0 mmol/L (21-32); Chloride 110.0 mmol/L (98-107); Creatinine Clr Calc Pharmacy 98.2 ml/min; Globulin 3.0 gm/dl (2.5-4.0); Glucose 124.0 mg/dl (70-99(Fasting)); Magnesium 1.9 mg/dl (1.7-2.4); Potassium 4.1 mmol/L (3.5-5.1); Sodium 137.0 mmol/L (136-145); Total Protein 6.0 gm/dl (6.0-8.3)
[2025-02-01 05:06] LABS: ANTI-Xa, UFH(UnfractionatedHep 0.14 IU/ml (0.3-0.7)
[2025-02-01 05:08] LABS: Thyroid Stimulating Hormone 1.769 uIu/ml (0.300-4.500)
[2025-02-01] MEDS: HEPARIN SOD (PORCINE) 1000 UNIT/ML IV STA (06:11)
[2025-02-01] MEDS: VANCOMYCIN HCL / NSS 1,000 MG/270 ML BAG IV SCH (06:14)
--- NOTE | 2025-02-01 06:32 | Electrocardiogram Report ---
Test Reason : Blood Pressure : */* mmHG Vent. Rate : 119 BPM Atrial Rate : * BPM P-R Int : * ms QRS Dur : 100 ms QT Int : 302 ms P-R-T Axes : * 21 12 degrees QTcB Int : 424 ms Atrial fibrillation with rapid ventricular response Nonspecific ST abnormality Abnormal ECG When compared with ECG of 02-Oct-2022 10:27, Atrial fibrillation has replaced Sinus rhythm Vent. rate has increased by 54 bpm Confirmed by Andrei Haynes ([id number]) on 02/01/2025 6:32:09 AM Referred By: Confirmed By: Andrei Haynes
[2025-02-01] MEDS: AMIODARONE 200 MG TAB PO SCH (08:19)
[2025-02-01] MEDS: DOXYCYCLINE HYCLATE 100 MG CAP PO SCH (08:19)
[2025-02-01] MEDS: FINASTERIDE 5 MG TAB PO SCH (08:19)
[2025-02-01] MEDS: TAMSULOSIN HCL 0.4 MG CAP PO SCH (08:20)
--- NOTE | 2025-02-01 09:37 | XCELERA ---
[id number] \\[id number]
--- NOTE | 2025-02-01 11:09 | Cardiology Progress Note ---
Date of Service February 01, 2025 Assessment & Plan (1) Atrial fibrillation with RVR: (2) Status post catheter ablation of atrial flutter: (3) Atrial flutter, paroxysmal: (4) Chest pain: Plan ASSESSMENT/PLAN: 1. Atrial fibrillation: New diagnosis on 01/31/2025 in the setting of pneumonia and urinary tract infection. Very symptomatic with near syncope and hypotension. History of atrial flutter. Cardioversion attempts in the ER. Amiodarone infusion initiated in the ER. Contacted earlier this morning as he remained in sinus rhythm that intravenous amiodarone could be transition to p.o. 200 mg twice daily. Continue amiodarone 200 mg p.o. twice daily for the next 4 weeks and then reduce to 200 mg once daily. Could consider ablation in the future. Monitor TSH and transaminase levels while on amiodarone. Potential adverse reactions of amiodarone discussed with patient and his at the bedside on 01/31/2025. Recommend anticoagulation for stroke risk reduction. Monitor CBC while on anticoagulation therapy. 2. Atrial flutter s/p ablation: No documented atrial flutter since ablation. He was quite symptomatic with that in the past. 3. Chest pain: Seems to be correlating with atrial arrhythmia and tachycardia as it would subside during evaluation while in sinus rhythm, and recur with short atrial runs. High-sensitivity troponin negative x 3. 4. Pneumonia and UTI: As per primary hospitalist service. 5. Disposition: Please call with further questions or concerns. Will contact cardiology office to help arrange follow-up in the next 2 to 4 weeks. Plan of care communicated with Maame Lei of the primary hospitalist service. Admission and Anticipated Discharge Date Admission Date: January 31, 2025 Subjective Patient seen earlier today. He denies chest pain, shortness of breath, syncope, near syncope, palpitations, edema, or bleeding. He states that overall he feels better than on presentation. He ambulated in the hallway without symptoms. He was unaccompanied. Physical Exam Physical Exam: Gen.: No acute distress. Alert and oriented. HEENT: Anicteric sclera. Neck: No JVD. Cardiac: Regular. Normal S1-S2. No murmurs, rubs, or gallops. Pulmonary: Decreased breath sounds bilaterally, but otherwise clear to auscultation. Abdomen: Soft, nontender, nondistended, with normoactive bowel sounds. No bruits noted. Extremities: 2+ radial pulses bilaterally. 2+ posterior tibialis pulses bilaterally. No edema or cyanosis. Results & Data Vital Signs (Past 12 Hours) Vital Signs Temp Pulse Pulse Resp BP Pulse Ox O2 Del Method 02/01/25 08:09 36.5 C 62 17 129/78 94 Room Air 02/01/25 07:26 65 02/01/25 03:46 36.7 C 67 20 119/74 93 Room Air 02/01/25 00:00 67 Intake & Output 01/30/25 01/31/25 02/01/25 02/02/25 06:59 06:59 06:59 06:59 Intake Total 3141.9 / 3177.6 505.7 / 505.7 Output Total 1275 / 1275 Balance 1866.9 / 1902.6 505.7 / 505.7 Weight 172 lb 2.896 oz 172 lb 2.896 oz Laboratory Results Laboratory Results - last 24 hr 01/31/25 01/31/25 01/31/25 14:12 14:49 15:53 WBC 6.04 RBC 4.20 L Hgb 13.4 L Hct 37.9 L MCV 90.2 MCH 31.9 MCHC 35.4 RDW Std Deviation 45.5 RDW Coeff of Kvng 13.8 Plt Count 189 MPV 9.2 L Immature Gran % (Auto) 0.3 Neut % (Auto) 81.1 Lymph % (Auto) 7.6 [place] % (Auto) 7.1 Eos % (Auto) 3.1 Baso % (Auto) 0.8 Neut # (Auto) 4.89 Lymph # (Auto) 0.46 L [place] # (Auto) 0.43 Eos # (Auto) 0.19 Baso # (Auto) 0.05 Immature Gran # (Auto) 0.02 PT 11.2 INR 1.1 Heparin Anti-Xa, Unfract Sodium 139 Potassium 3.5 Chloride 108 H Carbon Dioxide 24 Anion Gap 7 BUN 13 Creatinine 0.80 Est Cr Clr Drug Dosing Not Reportable eGFR 96.40 BUN/Creatinine Ratio 16.3 Glucose 143 H Lactate 0.9 Calcium 9.1 Magnesium 2.0 Total Bilirubin 1.1 H Direct Bilirubin 0.2 AST 16 ALT 16 Alkaline Phosphatase 67 Troponin I High Sens 3.7 Total Protein 7.2 Albumin 3.6 Globulin Albumin/Globulin Ratio Procalcitonin 0.04 TSH Urine Color Yellow Urine Appearance Cloudy A Urine pH 6.5 Ur Specific [place] 1.013 Urine Protein 2+ H Urine Glucose (UA) Negative Urine Ketones Negative Urine Blood 2+ H Urine Nitrite Positive A Urine Bilirubin Negative Urine Urobilinogen Negative Ur Leukocyte Esterase 3+ H Urine WBC (Auto) >50 H Urine RBC (Auto) >20 H U Hyaline Cast (Auto) 3-5 H U Epithel Cells (Auto) 0-2 Urine Bacteria (Auto) 4+ H Calcium Oxalate Crystal Present A Urine Mucus Present A Urine Comment Nasal Screen MRSA (PCR) 01/31/25 01/31/25 02/01/25 20:07 Unknown 04:10 WBC 5.07 RBC 3.73 L Hgb 11.7 L Hct 33.9 L MCV 90.9 MCH 31.4 MCHC 34.5 RDW Std Deviation 46.7 H RDW Coeff of Kvng 14.1 Plt Count 161 MPV 9.2 L Immature Gran % (Auto) Neut % (Auto) Lymph % (Auto) [place] % (Auto) Eos % (Auto) Baso % (Auto) Neut # (Auto) Lymph # (Auto) [place] # (Auto) Eos # (Auto) Baso # (Auto) Immature Gran # (Auto) PT INR Heparin Anti-Xa, Unfract 0.14 L Sodium 137 Potassium 4.1 Chloride 110 H Carbon Dioxide 22 Anion Gap 5 BUN 11 Creatinine 0.72 Est Cr Clr Drug Dosing 98.2 eGFR 99.51 BUN/Creatinine Ratio 15.3 Glucose 124 H Lactate Calcium 8.5 L Magnesium 1.9 Total Bilirubin 0.6 D Direct Bilirubin AST 13 ALT 13 Alkaline Phosphatase 56 Troponin I High Sens 3.8 4.1 Total Protein 6.0 Albumin 3.0 L Globulin 3.0 Albumin/Globulin Ratio 1.0 Procalcitonin TSH 1.769 Urine Color Urine Appearance Urine pH Ur Specific [place] Urine Protein Urine Glucose (UA) Urine Ketones Urine Blood Urine Nitrite Urine Bilirubin Urine Urobilinogen Ur Leukocyte Esterase Urine WBC (Auto) Urine RBC (Auto) U Hyaline Cast (Auto) U Epithel Cells (Auto) Urine Bacteria (Auto) Calcium Oxalate Crystal Urine Mucus Urine Comment Nasal Screen MRSA (PCR) Negative Diagnostic Findings Labs reviewed and notable for stable renal function, normal potassium, normal TSH, normal transaminase levels, mild anemia. ECG personally reviewed from 01/31/2025: Sinus rhythm with atrial run. 88 bpm. Echo report reviewed from 02/01/2025: Normal LV size. EF 50-55%. No regional wall motion abnormalities. Mild LVH. No significant valvular abnormalities. Telemetry personally reviewed: Sinus rhythm mostly 60s to 70s. No further sustained arrhythmia. Medications Administered Current Inpatient Medications Acetaminophen (Acetaminophen 500 Mg Tab) 1,000 mg PO Q8H PRN PRN Reason: Pain or Fever Stop: 03/02/25 18:12 Amiodarone HCl (Amiodarone 200 Mg Tab) 200 mg PO BIDM [facility] Stop: 03/03/25 07:59 Last Admin: 02/01/25 08:19 Dose: 200 mg Aspirin (Aspirin 81 Mg Ectab) 81 mg PO HS [facility] Stop: 03/02/25 20:59 Last Admin: 01/31/25 19:45 Dose: 81 mg Doxycycline Hyclate (Doxycycline Hyclate 100 Mg Cap) 100 mg PO BID [facility] Stop: 02/06/25 06:59 Last Admin: 02/01/25 08:19 Dose: 100 mg Finasteride (Finasteride 5 Mg Tab) 5 mg PO DAILY [facility] Stop: 03/03/25 08:59 Last Admin: 02/01/25 08:19 Dose: 5 mg Cefepime HCl (Maxipime 2000mg) 2,000 mg in 20 mls @ 5 mls/min IV Q8H [facility]; Protocol Stop: 02/10/25 20:59 Last Admin: 02/01/25 06:12 Dose: 5 mls/min Heparin Sodium/Dextrose (Heparin 03949 Unit/500 Ml D5w) 25,000 units in 500 mls @ 21 mls/hr IV .[id number] [facility]; Protocol Stop: 03/02/25 19:14 Last Titration: 02/01/25 07:00 Dose: 1,050 units/hr, 21 mls/hr Melatonin (Melatonin 3 Mg Tab) 3 mg PO HS PRN PRN Reason: Sleep Stop: 03/02/25 18:12 Ondansetron HCl (Ondansetron Inj 2 Mg/Ml 2 Ml Vial) 4 mg IV Q6H PRN PRN Reason: Nausea Stop: 03/02/25 18:12 Pantoprazole Sodium (Pantoprazole 40 Mg Tab) 40 mg PO DAILY [facility] Stop: 03/03/25 08:59 Last Admin: 02/01/25 08:20 Dose: 40 mg Polyethylene Glycol (Polyethylene (Miralax) 17 Gm Pack) 17 gm PO DAILY PRN PRN Reason: Constipation Stop: 03/02/25 18:12 Tamsulosin HCl (Tamsulosin Hcl 0.4 Mg Cap) 0.4 mg PO DAILY [facility] Stop: 03/03/25 08:59 Last Admin: 02/01/25 08:20 Dose: 0.4 mg PG Care Time/CCT Total # of Minutes Spent Total Time Spent with Patient: Total time spent is greater than 50% in coordination of care (as documented) at patient's floor/unit and/or counseling patient: Coding Level of Care Code 61922 SUB INP/OBS CARE 3/50MIN Diagnoses Atrial fibrillation with RVR I48.91 Status post catheter ablation of atrial flutter Z98.890 Atrial flutter, paroxysmal I48.92 Chest pain R07.9
[2025-02-01 13:10] LABS: ANTI-Xa, UFH(UnfractionatedHep 0.23 IU/ml (0.3-0.7)
[2025-02-01] MEDS: guaiFENesin 600 MG TABCR PO SCH (13:33)
--- NOTE | 2025-02-01 14:06 | Hospitalist Progress Note ---
"Date of Service February 01, 2025 Assessment & Plan (1) Atrial fibrillation with RVR: (2) Catheter-associated urinary tract infection: (3) Pneumonia: (4) Adenocarcinoma of esophagus: Plan Justyn is a 70-year-old male with a past medical history of adenocarcinoma of the esophagus status post esophagectomy 11/2024, BPH with urinary retention, hypertension, and paroxysmal A-fib who presents to the ER with a sensation of palpitations and chest heaviness and a blackout sensation. Found to be in A-fib RVR, chest x-ray concerning for bilateral pneumonia and UA concerning for UTI. Will be admitted for cardio consultation and IV antibiotics #A-fib RVRwith history of such status post ablation x 2, not on beta-blockers (due to hypotension) or anticoagulation. Cardioversion was attempted twice in the ED without success and started on amnio drip. Consult cardiologystop amiodarone drip now he has converted, OP 200mg BID x 4 weeks then daily 200mg - TSH and LFTs okay Echo: EF 50-55%, no RWMA, no atrial septal defect visualized Plan to stop heparin drip tonight and covert to PO eliquis #CAUTI POA | PNA - having issues with urinary retention since recent procedure, [facility] in [facility]. patient reported possible pus drainage from his Alexander 01/31. given ceftriaxone and doxycycline in the ED. MRSA nares negative, vanco discontinued. Expand coverage to cefepime and doxycyline recent hospitalization, immunosuppression with chemo and cancer Supportive care: IS, Mucinex BID Blood cultures negative at 24 hours Urine culture: contaminated Continue Flomax and dutasteride Recommend repeat CXR in 4-6 weeks. #adenocarcinoma of the esophagusstatus post esophagectomy 11/2024 Continue PPI daily Nutrition consult No current chemo or radiation, has had this in the past. Is on immunotherapy infusions once monthly. Follows with [facility] oncology Dispo: continued inpatient stay, possible discharge tomorrow DVT prophy: Heparin drip, converting to Eliquis updated at bedside on admission Admission and Anticipated Discharge Date Admission Date: January 31, 2025 Supervising Physician Co-Signing Physician Notes PA Supervision Note: I did not personally see or examine the patient today, but I verified all nash points of VINI Lei's assessment and plan with the following exceptions/additions: None Subjective Patient seen sitting up in bed, reports that he walked the halls with no issue cough is starting to develop but not productive no longer having chest tightness appetite is baseline Tele - converted to sinus ~1900 Review of Systems Review of Systems: All systems reviewed & are unremarkable except as noted in Subjective Physical Exam Physical Exam: General: NAD, VS as above Resp: normal respiratory effort, on room air, diminished bilateral bases. Non productive cough CV: RRR, no murmur, Abd: normal bowel sounds, mild generalized tenderness, patient reports has been there since surgery, soft Extremities: Moves all extremities, no lower extremity edema, no calf tenderness Neuro: A&O x3, : Alexander in place Results & Data Results & Data Vital Signs (Past 12 Hours) Vital Signs Temp Pulse Pulse Resp BP Pulse Ox O2 Del Method 02/01/25 11:09 97.9 F 77 20 137/76 93 Room Air 02/01/25 08:09 97.7 F 62 17 129/78 94 Room Air 02/01/25 07:26 65 02/01/25 03:46 98.1 F 67 20 119/74 93 Room Air Laboratory Results cbc, chemistry reviewed LFTs reviewed and TSH reviewed PG Care Time/CCT Total # of Minutes Spent Total Time Spent with Patient: Total time spent is greater than 50% in coordination of care (as documented) at patient's floor/unit and/or counseling patient: Coding Level of Care Code 29468 SUB INP/OBS CARE 3/50MIN Diagnoses Atrial fibrillation with RVR I48.91 Catheter-associated urinary tract infection T83.511A; N39.0 Pneumonia J18.9 Adenocarcinoma of esophagus C15.9"
[2025-02-01] MEDS: [UNRECOGNIZED DRUG - REMARK] ONE (18:43)
[2025-02-01] MEDS: APIXABAN 5 MG TABLET PO SCH (20:57)
--- NOTE | 2025-02-02 05:55 | Electrocardiogram Report ---
Test Reason : Blood Pressure : */* mmHG Vent. Rate : 88 BPM Atrial Rate : * BPM P-R Int : * ms QRS Dur : 100 ms QT Int : 424 ms P-R-T Axes : * -6 22 degrees QTcB Int : 513 ms Sinus rhythm with PACs and atrial run Prolonged QT Abnormal ECG When compared with ECG of 31-Jan-2025 15:00, Nonspecific T wave abnormality, worse in Inferior leads Confirmed by Andrei Haynes ([id number]) on 02/02/2025 5:55:19 AM Referred By: REFERRED SELF Confirmed By: Andrei Haynes
[2025-02-02 05:59] LABS: Hematocrit (blood only) 35.7 % (42.0-52.0); Hemoglobin 12.7 g/dL (14.0-18.0); Mean Corpuscular Hemoglobin 31.9 pg (25.0-34.0); Mean Corpuscular Volume 89.7 fL (80.0-100.0); Platelet Count 176 K/uL (130-400); RDW Standard Deviation 45.4 fL (36.4-46.3); Red Blood Count 3.98 M/uL (4.70-6.10); White Blood Count 4.89 K/ul (4.8-10.8)
[2025-02-02 06:13] LABS: Anion Gap 6.0 (3-11); Blood Urea Nitrogen 10.0 mg/dl (6-23); Calcium 9.3 mg/dl (8.6-10.3); Carbon Dioxide 23.0 mmol/L (21-32); Chloride 108.0 mmol/L (98-107); Creatinine Clr Calc Pharmacy 101.0 ml/min; Glucose 112.0 mg/dl (70-99(Fasting)); Potassium 3.9 mmol/L (3.5-5.1); Sodium 137.0 mmol/L (136-145)
--- NOTE | 2025-02-02 10:14 | Cardiology Progress Note ---
Date of Service February 02, 2025 Assessment & Plan (1) Atrial fibrillation with RVR: (2) Status post catheter ablation of atrial flutter: (3) Atrial flutter, paroxysmal: (4) Chest pain: Plan ASSESSMENT/PLAN: 1. Atrial fibrillation: New diagnosis on 01/31/2025 in the setting of pneumonia and urinary tract infection. Very symptomatic with near syncope and hypotension. Cardioversion attempts in the ER. Amiodarone infusion initiated in the ER and transition to p.o. Continue amiodarone 200 mg p.o. twice daily for the next 4 weeks (total) and then reduce to 200 mg once daily. Could consider ablation in the future. Monitor TSH and transaminase levels while on amio darone. Potential adverse reactions of amiodarone discussed with patient and his at the bedside on 01/31/2025. Recommend anticoagulation for stroke risk reduction. Monitor CBC while on anticoagulation therapy. Aspirin is not necessary from cardiac standpoint and will consider discontinuing aspirin if no indication given increased risk of bleeding while on antiplatelet therapy and anticoagulation. 2. Atrial flutter s/p ablation: No documented atrial flutter since ablation. He was quite symptomatic with that in the past. 3. Chest pain: Correlated with atrial arrhythmia and tachycardia as it was present while in A-fib and then recurred with atrial arrhythmia on telemetry as witnessed in the ER. It would quickly resolve in sinus. High-sensitivity troponin negative x 3. 4. Pneumonia and UTI: As per primary hospitalist service. 5. Disposition: Please call with further questions or concerns. I have asked the outpatient cardiology office to arrange a follow-up in 2 to 4 weeks. Plan of care communicated with Maame Lei of the primary hospitalist service. Admission and Anticipated Discharge Date Admission Date: January 31, 2025 Subjective Patient seen this morning. He denies chest pain, shortness of breath, syncope, near syncope, palpitations, edema, or bleeding. He is hoping to go home today. He was unaccompanied. Physical Exam Physical Exam: Gen.: No acute distress. Alert and oriented. HEENT: Anicteric sclera. Neck: No JVD. Cardiac: Regular. Normal S1-S2. No murmurs, rubs, or gallops. Pulmonary: Decreased breath sounds bilaterally, but otherwise clear to auscultation. Abdomen: Soft, nontender, nondistended, with normoactive bowel sounds. No bruits noted. Extremities: 2+ radial pulses bilaterally. 2+ posterior tibialis pulses bilaterally. No edema or cyanosis. Results & Data Vital Signs (Past 12 Hours) Vital Signs Temp Pulse Resp BP Pulse Ox O2 Del Method 02/02/25 08:08 36.5 C 66 19 124/75 93 Room Air 02/02/25 04:08 36.6 C 70 18 119/74 92 Room Air 02/02/25 00:29 36.5 C 67 18 117/72 93 Room Air Intake & Output 01/31/25 02/01/25 02/02/25 02/03/25 06:59 06:59 06:59 06:59 Intake Total 3141.9 / 3177.6 1298.10 / 1298.10 Output Total 1275 / 1275 2950 / 2950 Balance 1866.9 / 1902.6 -1651.90 / -1651.90 Weight 172 lb 2.896 oz 173 lb 4.533 oz Laboratory Results Laboratory Results - last 24 hr 02/01/25 02/02/25 12:18 04:46 WBC 4.89 RBC 3.98 L Hgb 12.7 L Hct 35.7 L MCV 89.7 MCH 31.9 MCHC 35.6 RDW Std Deviation 45.4 RDW Coeff of Kvng 13.7 Plt Count 176 MPV 9.5 Heparin Anti-Xa, Unfract 0.23 L Sodium 137 Potassium 3.9 Chloride 108 H Carbon Dioxide 23 Anion Gap 6 BUN 10 Creatinine 0.70 Est Cr Clr Drug Dosing 101.0 eGFR 100.37 BUN/Creatinine Ratio 14.3 Glucose 112 H Calcium 9.3 Diagnostic Findings Labs reviewed and notable for mild anemia, stable renal function, normal potassium. Telemetry personally reviewed: Sinus rhythm. Medications Administered Current Inpatient Medications Acetaminophen (Acetaminophen 500 Mg Tab) 1,000 mg PO Q8H PRN PRN Reason: Pain or Fever Stop: 03/02/25 18:12 Amiodarone HCl (Amiodarone 200 Mg Tab) 200 mg PO BIDM [facility] Stop: 03/03/25 07:59 Last Admin: 02/02/25 09:15 Dose: 200 mg Apixaban (Apixaban 5 Mg Tablet) 5 mg PO BID [facility] Stop: 03/03/25 20:59 Last Admin: 02/02/25 09:17 Dose: 5 mg Aspirin (Aspirin 81 Mg Ectab) 81 mg PO HS [facility] Stop: 03/02/25 20:59 Last Admin: 02/01/25 20:57 Dose: 81 mg Doxycycline Hyclate (Doxycycline Hyclate 100 Mg Cap) 100 mg PO BID [facility] Stop: 02/06/25 06:59 Last Admin: 02/02/25 09:17 Dose: 100 mg Finasteride (Finasteride 5 Mg Tab) 5 mg PO DAILY [facility] Stop: 03/03/25 08:59 Last Admin: 02/02/25 09:15 Dose: 5 mg Guaifenesin (Guaifenesin 600 Mg Tabcr) 1,200 mg PO Q12 [facility] Stop: 03/03/25 12:34 Last Admin: 02/02/25 09:16 Dose: 1,200 mg Cefepime HCl (Maxipime 2000mg) 2,000 mg in 20 mls @ 5 mls/min IV Q8H [facility]; Protocol Stop: 02/10/25 20:59 Last Admin: 02/02/25 05:09 Dose: 5 mls/min Melatonin (Melatonin 3 Mg Tab) 3 mg PO HS PRN PRN Reason: Sleep Stop: 03/02/25 18:12 Ondansetron HCl (Ondansetron Inj 2 Mg/Ml 2 Ml Vial) 4 mg IV Q6H PRN PRN Reason: Nausea Stop: 03/02/25 18:12 Pantoprazole Sodium (Pantoprazole 40 Mg Tab) 40 mg PO DAILY [facility] Stop: 03/03/25 08:59 Last Admin: 02/02/25 09:17 Dose: 40 mg Polyethylene Glycol (Polyethylene (Miralax) 17 Gm Pack) 17 gm PO DAILY PRN PRN Reason: Constipation Stop: 03/02/25 18:12 Tamsulosin HCl (Tamsulosin Hcl 0.4 Mg Cap) 0.4 mg PO DAILY [facility] Stop: 03/03/25 08:59 Last Admin: 02/02/25 09:18 Dose: 0.4 mg PG Care Time/CCT Total # of Minutes Spent Total Time Spent with Patient: Total time spent is greater than 50% in coordination of care (as documented) at patient's floor/unit and/or counseling patient: Coding Level of Care Code 89954 SUB INP/OBS CARE 3/50MIN Diagnoses Atrial fibrillation with RVR I48.91 Status post catheter ablation of atrial flutter Z98.890 Atrial flutter, paroxysmal I48.92 Chest pain R07.9
[2025-02-02 11:06] VITALS: BP 114/72; RESP 18; TEMP 97.5; O2SAT 96
--- NOTE | 2025-02-02 11:27 | Discharge Summary ---
"Discharge Summary Date of Service February 02, 2025 Principal Dx & Hospital Course #1 = Principal Diagnosis (1) Atrial fibrillation with RVR: (2) Catheter-associated urinary tract infection: (3) Pneumonia: (4) Adenocarcinoma of esophagus: Plan #A-fib RVR Justyn is a 70-year-old male with a past medical history of adenocarcinoma of the esophagus status post esophagectomy 11/2024, BPH with urinary retention, hypertension, and paroxysmal A-fib who presents to the ER with a sensation of palpitations and chest heaviness and a blackout sensation. Found to be in A-fib RVR, cardioversion x2 Unsuccessful in the ER, and started on amiodarone drip. Cardiology was consulted, he did convert to sinus rhythm and then was converted to oral amiodarone with a plan for 200mg twice a day x 4 weeks then daily after that. TSH and LFTs okay. Echo: EF 50-55%, no RWMA, no atrial septal defect visualized. Initially started on a heparin drip but this was converted to Eliquis. Follow-up with cardiology after discharge #CAUTI POA | PNA He also has chest x-ray concerning for bilateral pneumonia and UA concerning for UTI. Catheter exchanged in the ER on 01/31. Urine culture grew mixed orga nisms. He received cefepime and doxycycline while inpatient and will be discharged with Augmentin and doxycycline. Continue supportive care with incentive spirometer and Mucinex. He should also continue his Flomax and dutasteride. Recommend repeat chest x-ray in 4 to 6 weeks Blood cultures negative at 48 hours #adenocarcinoma of the esophagusstatus post esophagectomy 11/2024. Continue PPI daily. continue protein supplementation. Follows with [facility] oncology Dispo: discharged home today, with cardiology follow-up Notes For Next Care Provider Medication Changes From Visit Eliquis 5 mg twice daily Amiodarone 200 mg twice daily x 28 days Course of Augmentin doxycycline and Mucinex Admission HPI Per Admitting Provider Justyn is a 70-year-old male with a past medical history of adenocarcinoma of the esophagus status post esophagectomy 11/2024, BPH with urinary retention, hypertension, and paroxysmal A-fib who presents to the ER with a sensation of palpitations and chest heaviness and a blackout sensation. Found to be in A-fib RVR, he has has A-fib in the past but was cardioverted twice and then taken off his beta-kb due to hypotension. He is not on blood thinners at baseline and did not receive blood thinners after his recent surgery. He has had issues with urinary retention/surgery and has a Alexander in place and follows with [place] [facility]. He reports that he has been feeling well up until the onset of his A- fib around 1 PM today. Denies shortness of breath or cough. Denies fevers or chills at home. Has been moving his bowels like normal. Appetite has been okay he is able to eat a full diet after his recent surgery but he has lost 65 pounds since surgery, Does use nutritional supplements. he denies alcohol or tobacco use. He wishes to be a full code. ED course: Ceftriaxone 2 g IV x 1 Doxycycline 100 mg IV x 1 NSS x 2 L Failed cardioversion x 2 Amiodarone drip started Discharge Exam General: NAD, VS as above Resp: normal respiratory effort, lungs diminished in the right base CV: RRR, no murmur, Abd: normal bowel sounds, non tender, soft Extremities: Moves all extremities, no edema Neuro: A&O x3, : Alexander intact draining clear/yellow urine Discharge Plan Discharge Items Patient Disposition: Home - Self-Care Reason For Visit: AFIB RVR Discharge Diagnosis: Afib RVR Condition on Discharge: Good Activity: Resume your previous activity Driving/Machine Use: No limitations Weightbearing: Full weightbearing Non-emergency contact: Primary Care Provider and Department Director Call non-emergency contact if: you have any medication questions, your symptoms worsen, your pain is not controlled and your temperature is above 101 Follow-up/Referrals: Andrei Haynes MD [Physician] - (office will contact you for follow up in 2-4 weeks ) Ryann Doty MD [Primary Care Provider] - 02/08/25 9:45 am (follow up within one week 02/08/25 at 9:45 at the [facility] office) Diet: Regular Addtl Attending Provider Instructions: Mr. Monroy, David were hospitalized after an episode of near syncope and chest heaviness that was found to be from Afib with rapid response. Cardioversion was attempted twice in the ER, but unsuccessful. You were then placed on an amiodarone drip and eventually converted back to sinus rhythm. Having afib increases your risk for clots so you were started on a blood thinner, this is called Eliquis. You will take this twice daily. Being on a blood thinner increases your risks for bleeds elsewhere and I have included further information about Eliquis below. Because you have started Eliquis, you no longer need to take your baby aspirin. You were seen by cardiology and started on amiodarone twice day for 28 days and then can decrease to daily. You will follow up with cardiology in 2-4 weeks. There number is above, if you do not hear from their office by Thursday, please give them a call. There was also concern that you had a UTI and Pneumonia. Your catheter was exchanged and you were given IV antibiotics. You will have four additional days of antibiotics - Augmentin and doxycycline. Please take the first dose tonight, PM 11. Take with food as both can cause upset stomach. You should also continue mucinex while you are on the antibiotic, if the prescription is not covered, please purchase over the counter. You should have a repeat chest xray with your PCP in 4-6 weeks to make sure the pneumonia has resolved. No other changes to your home medications. Activity: You can do normal everyday activities as your body allows. Take rest breaks if you feel tired. Do not overexert. Stop activity if you have pain, shortness of breath or feel dizzy. Follow-up appointments: Make an appointment with your primary care physician within one week of discharge. A copy of this summary will be sent to them. Every time you see your primary care physician, or any other doctor, bring your medication list, and a list of questions. CONTACT YOUR PRIMARY CARE PROVIDER if you experience any of the following: Shortness of breath or difficulty breathing Fevers or chills Feeling tired with normal activity or experiencing dizziness or fainting Difficulty following your treatment plan, or difficulty taking medications CALL 911 OR GO TO THE EMERGENCY DEPARTMENT if you experience any of the following: Severe abdominal pain or nausea/vomiting Severe chest pain, or chest pain that radiates (moves) to your jaw or arm Sudden, severe shortness of breath or difficulty breathing Thank you for allowing us to participate in your care. Here are some guidelines about taking Eliquis: Increased risk of blood clots if you stop taking Eliquis. Do not stop taking Eliquis without talking to your doctor.. Stopping Eliquis increases your risk of having a stroke. Increased risk of bleeding. Eliquis can cause bleeding which can be serious and may lead to . This is because Eliquis is a blood thinner medicine (anticoagulant) that lowers blood clotting. During treatment with Eliquis you are likely to bruise more easily, and it may take longer for bleeding to stop. * If you ever cannot get bleeding to stop please report to the ER * If you have a bruise that is large/painful or swollen you should also be seen by a medical provider Call your doctor or get medical help right away if you or your child develop any of these signs or symptoms of bleeding: unexpected bleeding or bleeding that lasts a long time, such as: * nose bleeds that happen often * unusual bleeding from the gums * bleeding that is severe or you cannot control * red, pink or brown urine * bright red or black stools (looks like tar) * cough up blood or blood clots * vomit blood or your vomit looks like coffee grounds If you have a fall and hit your head, please come to the ER and get checked out. Being on a blood thinner increases your risk of brain bleeding with falls. Avoid high risk activities, such as: * standing on tall ladders * riding motorcycles * anything where you are high risk for falls or trauma Avoid taking NSAIDs (pain medication) while you are taking a blood thinner. This includes: * Ibuprofen, Aleve Advil, Naproxen. * If you are ever unsure you can ask your doctor or pharmacist. * Tylenol is SAFE to take. If you have any new or worsening chest pain or shortness of breath please return to the ER. Pending Studies at Discharge: Yes (blood cultures) Stand-Alone Forms: My [facility] OpenRoute, Smoking Cessation Medications and DC Order Prescriptions: New doxycycline hyclate 100 mg Capsule 100 mg PO BID Qty: 8 0RF amiodarone 200 mg Tablet 200 mg PO BIDM 28 Days Qty: 56 0RF Eliquis 5 mg Tablet 5 mg PO BID Qty: 60 0RF guaifenesin [Mucinex] 600 mg Tablet Extended Release 12hr 1,200 mg PO Q12 Qty: 8 0RF amoxicillin-pot clavulanate 875-125 mg tablet 1 tab PO BID Qty: 8 0RF Continued tamsulosin [Flomax] 0.4 mg capsule 0.4 mg PO DAILY Qty: 90 3RF dutasteride [Avodart] 0.5 mg capsule 0.5 mg PO DAILY Qty: 90 3RF ascorbic acid (vitamin C) [Vitamin C] 500 mg Tablet 500 mg PO QDD Men's 50 Plus Multivitamin 400-20-370 mcg Tablet 1 tab PO QDD omeprazole 20 mg capsule,delayed release(DR/EC) 40 mg PO DAILYBB acetaminophen 500 mg Tablet 1,000 mg PO Q8 Qty: 30 0RF docusate sodium 100 mg Capsule 100 mg PO BID Qty: 60 0RF Discontinued aspirin 81 mg Tablet,Delayed Release (Dr/Ec) 81 mg PO HS Discharge Orders: Discharge Order (Routine); Ordered 02/02/25 Ordered By: Maame Whaley/Other Patient Handouts: Amiodarone Oral Tablet, AFib Dc Admission Data Admit Date/Time: 01/31/25 16:37 Attending Provider: Fior Barrios Admit Provider: Sam Braun Primary Care Provider: Ryann Doty Other Providers: Fior Barrios; Andrei Haynes Other Interventions: Discharge Summary Assessment (RN) Last Done: 02/02/25 12:44 Hospital Stay Data Consultations 01/31/25 16:13 ED Decision to Admit Stat 01/31/25 16:27 Consult Cardiology Routine Diagnostic Imagining Performed Chest X-Ray 01/31/25 14:32 XR chest 1V portable CLINICAL HISTORY: Sepsis COMPARISON STUDY: 04/15/2022 FINDINGS: Heart size and pulmonary vasculature are normal. There is patchy consolidation in the lung bases, right greater than left. No pleural effusion or pneumothorax. IMPRESSION: Bilateral pneumonia. Follow-up to resolution recommended. ACT 112: Negative or not required by law. Electronically signed by: Jose R Meeks M.D. 01/31/2025 3:18 PM Pending Results Patient Have Any Pending Studies at Discharge: Yes (blood cultures) Discharge Instructions Given to Patient (Per Discharging Provider) Mr. Monroy, David were hospitalized after an episode of near syncope and chest heaviness that was found to be from Afib with rapid response. Cardioversion was attempted twice in the ER, but unsuccessful. You were then placed on an amiodarone drip and eventually converted back to sinus rhythm. Having afib increases your risk for clots so you were started on a blood thinner, this is called Eliquis. You will take this twice daily. Being on a blood thinner increases your risks for bleeds elsewhere and I have included further information about Eliquis below. Because you have started Eliquis, you no longer need to take your baby aspirin. You were seen by cardiology and started on amiodarone twice day for 28 days and then can decrease to daily. You will follow up with cardiology in 2-4 weeks. There number is above, if you do not hear from their office by Thursday, please give them a call. There was also concern that you had a UTI and Pneumonia. Your catheter was exchanged and you were given IV antibiotics. You will have four additional days of antibiotics - Augmentin and doxycycline. Please take the first dose tonight, PM 11. Take with food as both can cause upset stomach. You should also continue mucinex while you are on the antibiotic, if the prescription is not covered, please purchase over the counter. You should have a repeat chest xray with your PCP in 4-6 weeks to make sure the pneumonia has resolved. No other changes to your home medications. Activity: You can do normal everyday activities as your body allows. Take rest breaks if you feel tired. Do not overexert. Stop activity if you have pain, shortness of breath or feel dizzy. Follow-up appointments: Make an appointment with your primary care physician within one week of discharge. A copy of this summary will be sent to them. Every time you see your primary care physician, or any other doctor, bring your medication list, and a list of questions. CONTACT YOUR PRIMARY CARE PROVIDER if you experience any of the following: Shortness of breath or difficulty breathing Fevers or chills Feeling tired with normal activity or experiencing dizziness or fainting Difficulty following your treatment plan, or difficulty taking medications CALL 911 OR GO TO THE EMERGENCY DEPARTMENT if you experience any of the following: Severe abdominal pain or nausea/vomiting Severe chest pain, or chest pain that radiates (moves) to your jaw or arm Sudden, severe shortness of breath or difficulty breathing Thank you for allowing us to participate in your care. Here are some guidelines about taking Eliquis: Increased risk of blood clots if you stop taking Eliquis. Do not stop taking Eliquis without talking to your doctor.. Stopping Eliquis increases your risk of having a stroke. Increased risk of bleeding. Eliquis can cause bleeding which can be serious and may lead to . This is because Eliquis is a blood thinner medicine (anticoagulant) that lowers blood clotting. During treatment with Eliquis you are likely to bruise more easily, and it may take longer for bleeding to stop. * If you ever cannot get bleeding to stop please report to the ER * If you have a bruise that is large/painful or swollen you should also be seen by a medical provider Call your doctor or get medical help right away if you or your child develop any of these signs or symptoms of bleeding: unexpected bleeding or bleeding that lasts a long time, such as: * nose bleeds that happen often * unusual bleeding from the gums * bleeding that is severe or you cannot control * red, pink or brown urine * bright red or black stools (looks like tar) * cough up blood or blood clots * vomit blood or your vomit looks like coffee grounds If you have a fall and hit your head, please come to the ER and get checked out. Being on a blood thinner increases your risk of brain bleeding with falls. Avoid high risk activities, such as: * standing on tall ladders * riding motorcycles * anything where you are high risk for falls or trauma Avoid taking NSAIDs (pain medication) while you are taking a blood thinner. This includes: * Ibuprofen, Aleve Advil, Naproxen. * If you are ever unsure you can ask your doctor or pharmacist. * Tylenol is SAFE to take. If you have any new or worsening chest pain or shortness of breath please return to the ER. Supervising Physician Co-Signing Physician Notes PA Supervision Note: I did not personally see or examine the patient today, but I verified all nash points of VINI Lei's assessment and plan with the following exceptions/additions: None Total Time Total Time Spent Total Time Spent (In Minutes): Time spent day of discharge 40 minutes including direct patient care, medication reconciliation, documentation, review of labs and images, and coordination of care. case discussed with Dr. Haynes Coding Level of Care Code 17232 INP/OBS DISCH >30 MIN Diagnoses Atrial fibrillation with RVR I48.91 Catheter-associated urinary tract infection T83.511A; N39.0 Pneumonia J18.9 Adenocarcinoma of esophagus C15.9"
[2025-02-02 12:44] VITALS: PULSE 53
--- NOTE | 2025-02-02 18:41 | Electrocardiogram Report ---
Test Reason : Blood Pressure : */* mmHG Vent. Rate : 139 BPM Atrial Rate : * BPM P-R Int : * ms QRS Dur : 96 ms QT Int : 338 ms P-R-T Axes : * -10 -25 degrees QTcB Int : 514 ms Atrial fibrillation with rapid ventricular response with premature ventricular or aberrantly conducte d complexes Cannot rule out Anterior infarct , age undetermined Nonspecific ST abnormality Abnormal ECG When compared with ECG of 31-Jan-2025 14:08, Nonspecific T wave abnormality, improved in Lateral leads Confirmed by Andrei Haynes ([id number]) on 02/02/2025 6:40:38 PM Referred By: REFERRED SELF Confirmed By: Andrei Haynes
--- NOTE | 2025-02-02 18:43 | Electrocardiogram Report ---
Test Reason : Blood Pressure : */* mmHG Vent. Rate : 85 BPM Atrial Rate : * BPM P-R Int : * ms QRS Dur : 100 ms QT Int : 402 ms P-R-T Axes : * -8 49 degrees QTcB Int : 478 ms Sinus rhythm with frequent , and consecutive Premature supraventricular complexes Premature ventricular complexes Minimal voltage criteria for LVH, may be normal variant ( R in aVL ) Cannot rule out Anterior infarct (cited on or before 31-Jan-2025) Abnormal ECG When compared with ECG of 31-Jan-2025 14:35, Vent. rate has decreased by 54 bpm Sinus rhythm has replaced Atrial fibrillation Confirmed by Andrei Haynes ([id number]) on 02/02/2025 6:43:20 PM Referred By: REFERRED SELF Confirmed By: Andrei Haynes
--- NOTE | 2025-02-02 18:44 | Electrocardiogram Report ---
Test Reason : Blood Pressure : */* mmHG Vent. Rate : 65 BPM Atrial Rate : 65 BPM P-R Int : 166 ms QRS Dur : 106 ms QT Int : 474 ms P-R-T Axes : 52 -4 36 degrees QTcB Int : 492 ms Normal sinus rhythm Prolonged QT Abnormal ECG When compared with ECG of 31-Jan-2025 18:15, Atrial run is no longer present Confirmed by Andrei Haynes ([id number]) on 02/02/2025 6:44:07 PM Referred By: REFERRED SELF Confirmed By: Andrei Haynes
== END 2025-02-02 13:28 | disposition home or self-care (01) | DRG 308 ==
LOC: ED 13:56 → 4W 16:37 → SUATTDRO 16:37 → 4W 17:18

== ENCOUNTER 2025-02-09 15:39 | Inpatient (IN) ==
--- NOTE | 2025-02-09 16:01 | Emergency Department Note ---
Impression & Plan Hematuria, Pneumonia, Back pain, Pyelonephritis ED Provider Note NAME: KARLO SMITH AGE: 70 SEX: M : 1955 ARRIVES VIA: Walk-In INFORMANT: Patient ED PROVIDER(S): Dell Morgan DO CHIEF COMPLAINT: Hematuria HPI: Patient is a 70-year-old male with a past medical history of esophageal carcinoma with a Alexander in place in November per family who provides additional history. He presents to the ER for hematuria which been present for the past 3 days. He also admits to coughing which is started in the past 24 to 48 hours and has been getting worse. He does have some right back pain. He was recently admitted and found to be in A-fib. His placed on apixaban. He admits to some mid abdominal pain. No nausea, vomiting, or diarrhea. No dysuria, urgency or frequency. No other exacerbating or remitting factors. ADDITIONAL HISTORY OBTAINED: Per HPI Chronic Medical/Social Conditions Affecting Care: Per HPI PAST MEDICAL HISTORY:See Below PAST SURGICAL HISTORY:See Below FAMILY HISTORY:See Below SOCIAL HISTORY:See Below HOME MEDICATIONS:See Below ALLERGIES:See Below VITALS:See Below PHYSICAL EXAMINATION: GENERAL: Sitting up in bed, alert, well appearing, well nourished, no distress, non-toxic EYE EXAM: normal conjunctiva. OROPHARYNX: no exudate, no erythema, lips, buccal mucosa, and tongue normal and mucous membranes are moist NECK: supple, no nuchal rigidity, no adenopathy, non-tender LUNGS: Clear to auscultation. Normal chest wall mechanics HEART: no murmurs, S1 normal and S2 normal ABDOMEN: abdomen soft, non-tender, normo-active bowel sounds, no masses, no rebound or guarding. : Normal external genitalia. SKIN: no rashes and no bruising UPPER EXTREMITIES: upper extremities are grossly normal. LOWER EXTREMITIES: No pitting edema. NEURO EXAM: Normal sensorium, cranial nerves II-XII grossly intact, normal speech, no gross weakness of arms, no gross weakness of legs. MEDICAL DECISION MAKING: Patient is a 70-year-old male who presents ER for the above-stated complaint. IV was established and blood work is obtained. Labs showed no significant leukocytosis and a mild anemia 11.9. BMP along LFTs bilirubin and lipase unremarkable. UA with a large amount of red cells. CT abdomen pelvis concerning for possible Bhavin. Question if this is a partial treated UTI as he has been on antibiotics. Chest x-ray is consistent with pneumonia and does appear to be slightly worse. Patient was given vancomycin IV cefepime. Updated bedside and discussed the case with the hospitalist for further evaluation management treatment. Consults/Care Managements Discussions: Per MDM Triage Nursing notes reviewed. Limited review of prior medical records performed Vital Signs: reviewed and remarkable for no significant abnormalities Differential diagnosis: Differential diagnoses includes but is not limited to gastritis, peptic ulcer disease, GERD, gallbladder disease, pancreatitis, small bowel obstruction, appendicitis, diverticulitis, hernia, urinary tract infection, torsion, perforation, trauma, infectious. ER treatment provided: See below Diagnostics interpreted by me include EKG and cardiac monitoring as listed below: -Cardiac Monitoring: An order was placed for continuous cardiac monitoring. The monitor shows a rate of 60 with sinus rhythm. -ECG: none -Laboratory studies:Interpreted by me as stated above in MDM and shown below. Imaging studies: Xrays: As interpreted by me: Portable AP upright 1 view of the chest shows bilateral infiltrates CTs show: CT abdomen pelvis shows pyelo with pneumonia Procedures:none Critical Care: None Past Med/Surg History Problem List (Updated 02/09/25 @ 20:03 by Dell Morgan DO) Pyelonephritis (Acute) Back pain (Acute) Pneumonia (Acute) Hematuria (Acute) Chest pain Adenocarcinoma of esophagus Pneumonia (Acute) Catheter-associated urinary tract infection Atrial fibrillation with RVR (Acute) Dyslipidemia Status post catheter ablation of atrial flutter Sinus bradycardia Dyspnea on exertion BPH with obstruction/lower urinary tract symptoms (Chronic) Open finger fracture Acute bronchitis (Acute) Hypokalemia Acute renal insufficiency Sepsis (Acute) Acute UTI (Acute) Acute epididymitis (Acute) Atrial flutter, paroxysmal LVH (left ventricular hypertrophy) HLD (hyperlipidemia) GERD (gastroesophageal reflux disease) Hyperglycemia Epididymitis Laceration of right little finger w/o foreign body w/o damage to nail (Acute) Atrial flutter Surgical History History of hernia surgery History of partial thyroidectomy Family History Mother Diabetes Social History Smoking Status: Former smoker Second Hand Exposure: No; Do You Dip or Chew Tobacco: No; Hx Alcohol Use: No Hx Substance Use: No Preferred Language: Greek Communication Ability: Effective Visual Impairment: No Limitations Hearing Ability: Normal [place] Bucker Required: No Beliefs That Will Affect Care: None marital status: Current Living Situation: Spouse current occupational status: employed current occupation: [employer] at [employer] Feels Safe at Home: Yes Assistive Devices: None Allergies Allergies Allergy/AdvReac Type Severity Reaction Status Date / Time latex Allergy Intermediate Itching Verified 02/09/25 17:41 Penicillins Allergy Intermediate RASH Verified 02/09/25 17:41 Home Meds Home Medications Medication Instructions Recorded Confirmed [id number] acid-vit 1 tab PO QDD 06/02/18 02/09/25 K-lycop 400 mcg-20 mcg-370 mcg tablet (Men's 50 Plus Multivitamin) omeprazole 20 mg capsule,delayed 40 mg PO DAILYBB 07/04/20 02/09/25 release acetaminophen 500 mg tablet 1,000 mg PO Q8 PRN PAIN/ACHES/FEVER 02/09/25 02/09/25 docusate sodium 100 mg capsule 100 mg PO BID PRN Constipation 02/09/25 02/09/25 Previous Rx's Medication Instructions Recorded dutasteride 0.5 mg capsule 0.5 mg PO DAILY #90 caps 02/04/24 (Avodart) tamsulosin 0.4 mg capsule (Flomax) 0.4 mg PO DAILY #90 caps 02/04/24 amiodarone 200 mg tablet 200 mg PO BIDM 28 days #56 tabs 02/02/25 apixaban 5 mg tablet (Eliquis) 5 mg PO BID #60 tabs 02/02/25 guaifenesin 600 mg tablet, 1,200 mg (2 x 600 mg) PO Q12 #8 02/02/25 extended release 12 hr (Mucinex) tabs Results & Data (ED) Vital Signs Vital Signs - 24 hr 02/09/25 15:42 02/09/25 15:49 02/09/25 16:02 Temperature 35.9 C L Temperature Source Temporal Artery Scan Oral Pulse Rate 69 Pulse Rate [Apical] 61 Pulse Rhythm [Apical] Pulse Strength [Apical] Respiratory Rate 18 22 Respiratory Effort / Characteristics Non-Labored Spontaneous Respiratory Depth Normal Respiratory Pattern Blood Pressure 103/62 Blood Pressure [Right Arm] 110/66 Blood Pressure Mean 75 Blood Pressure Mean [Right Arm] 80 Blood Pressure Position [Right Arm] Pulse Oximetry 96 95 95 Oxygen Delivery Method Room Air Room Air Sepsis Recent Fever Within 48 Hours No Sepsis New/Unexplained Change in Mental Status No Sepsis Action Taken by Nursing No Action Required 02/09/25 16:13 02/09/25 16:15 02/09/25 18:10 Temperature 36.7 C Temperature Source Oral Pulse Rate 60 Pulse Rate [Apical] 57 L Pulse Rhythm [Apical] Regular Pulse Strength [Apical] Normal Respiratory Rate 19 Respiratory Effort / Characteristics Non-Labored Spontaneous Respiratory Depth Normal Respiratory Pattern Regular Blood Pressure Blood Pressure [Right Arm] 128/82 Blood Pressure Mean Blood Pressure Mean [Right Arm] 97 Blood Pressure Position [Right Arm] Lying Pulse Oximetry 97 Oxygen Delivery Method Room Air Sepsis Recent Fever Within 48 Hours Sepsis New/Unexplained Change in Mental Status Sepsis Action Taken by Nursing 02/09/25 19:18 Temperature Temperature Source Pulse Rate 58 L Pulse Rate [Apical] Pulse Rhythm [Apical] Pulse Strength [Apical] Respiratory Rate 20 Respiratory Effort / Characteristics Respiratory Depth Respiratory Pattern Blood Pressure 141/83 H Blood Pressure [Right Arm] Blood Pressure Mean 102 Blood Pressure Mean [Right Arm] Blood Pressure Position [Right Arm] Pulse Oximetry 97 Oxygen Delivery Method Sepsis Recent Fever Within 48 Hours Sepsis New/Unexplained Change in Mental Status Sepsis Action Taken by Nursing Laboratory Data 02/09/25 16:12 02/09/25 16:12 Lab Results 02/09/25 02/09/25 Range/Units 16:12 19:07 WBC 6.73 (4.8-10.8) K/ul RBC 3.77 L (4.70-6.10) M/uL Hgb 11.9 L (14.0-18.0) g/dL Hct 34.2 L (42.0-52.0) % MCV 90.7 (80.0-100.0) fL MCH 31.6 (25.0-34.0) pg MCHC 34.8 (32.0-36.0) g/dL RDW Std Deviation 47.7 H (36.4-46.3) fL RDW Coeff of Kvng 14.3 (11.5-14.5) % Plt Count 196 (130-400) K/uL MPV 9.0 L (9.4-12.4) fL Immature Gran % (Auto) 0.3 % Neut % (Auto) 84.6 % Lymph % (Auto) 6.1 % [place] % (Auto) 6.8 % Eos % (Auto) 1.6 % Baso % (Auto) 0.6 % Neut # (Auto) 5.69 (1.40-6.50) K/uL Lymph # (Auto) 0.41 L (1.20-3.40) K/uL [place] # (Auto) 0.46 (0.11-0.59) K/uL Eos # (Auto) 0.11 (0.00-0.50) K/uL Baso # (Auto) 0.04 (0.00-0.20) K/uL Immature Gran # (Auto) 0.02 (0.01-0.20) K/uL Sodium 137 (136-145) mmol/L Potassium 3.8 (3.5-5.1) mmol/L Chloride 106 (98-107) mmol/L Carbon Dioxide 23 (21-32) mmol/L Anion Gap 8 (3-11) BUN 16 (6-23) mg/dl Creatinine 0.96 (0.6-1.4) mg/dl Est Cr Clr Drug Dosing Not Reportable eGFR 86.10 BUN/Creatinine Ratio 16.7 (10-20) Glucose 111 H (70-99(Fasting)) mg/dl Calcium 8.9 (8.6-10.3) mg/dl Total Bilirubin 0.8 (0.2-1.0) mg/dl AST 16 (13-39) U/L ALT 16 (7-52) U/L Alkaline Phosphatase 58 (34-104) U/L Total Protein 6.6 (6.0-8.3) gm/dl Albumin 3.5 (3.4-5.0) gm/dl Globulin 3.1 (2.5-4.0) gm/dl Albumin/Globulin Ratio 1.1 (0.9-2) Lipase 9 L (11-82) U/L Urine Color Red Urine Appearance Turbid A (Clear) Urine pH 6.0 (4.5-7.5) Ur Specific [place] 1.020 (1.000-1.030) Urine Protein 3+ H (Negative) Urine Glucose (UA) Negative (Negative) Urine Ketones 3+ H (Negative) Urine Blood 3+ H (Negative) Urine Nitrite Negative (Negative) Urine Bilirubin 1+ H (Negative) Urine Urobilinogen Negative (Negative) Ur Leukocyte Esterase Negative (Negative) Urine RBC >20 H (0-2) /hpf Urine WBC 0-5 (0-5) /hpf Ur Epithelial Cells 0-2 (0-2) /hpf Urine Bacteria None Seen (None Seen) Urine Comment Administered Medications Discontinued Medications Sodium Chloride (Nss) 1,000 mls @ 999 mls/hr IV .Q1H1M ONE Stop: 02/09/25 16:59 Last Infusion: 02/09/25 18:44 Dose: Infused Documented By: Admin: 02/09/25 16:12 Dose: 999 mls/hr Documented By: deepti Sodium Chloride (Nss) 1,000 mls @ 999 mls/hr IV .Q1H1M ONE Stop: 02/09/25 19:40 Last Admin: 02/09/25 18:43 Dose: 999 mls/hr Documented By: ANDERSON Ceftriaxone Sodium (Rocephin) 2,000 mg in 50 mls @ 100 mls/hr IV NOW STA Stop: 02/09/25 19:21 Last Admin: 02/09/25 19:15 Dose: Not Given Documented By: ANA LILIA Cefepime HCl (Maxipime 2000mg) 2,000 mg in 20 mls @ 5 mls/min IV NOW STA; Protocol Stop: 02/09/25 19:14 Last Admin: 02/09/25 19:42 Dose: 5 mls/min Documented By: ANA LILIA Ioversol (Optiray 320 100ml) 94 ml IV ONCE ONE Stop: 02/09/25 17:21 Last Admin: 02/09/25 17:20 Dose: 94 ml Documented By: CARYN Imaging Data Radiologist's Impression: Abdomen/Pelvis CT 02/09/25 15:59 CT ABDOMEN and PELVIS with INTRAVENOUS CONTRAST HISTORY: Abdominal pain TECHNIQUE: CT abdomen and pelvis with contrast. IV CONTRAST: 100 mL of OMNIPAQUE 300 ENTERIC CONTRAST: Not Given COMPARISON: CT abdomen and pelvis April 03, 2024. FINDINGS: LOWER CHEST: There is a new right-sided pleural fluid. Right greater than left basilar densities may represent atelectasis and/or pneumonia. Small fluid is seen in the posterior mediastinum abutting the distal esophagus. Cardiomegaly LIVER: No focal lesion identified. Hepatic steatosis and hepatomegaly. GALLBLADDER/BILIARY: Mild wall thickening to the gallbladder. No abnormal biliary dilatation. SPLEEN: Unremarkable. PANCREAS: Unremarkable. ADRENALS: Unremarkable. KIDNEYS: Moderate perinephric stranding bilaterally. Question subtle transcortical hypoattenuations of both renal parenchyma. No definite urolithiasis. No hydronephrosis identified. A calcific density measuring 3 mm by the distal LEFT ureter is likely a pelvic phlebolith instead of a ureteral stone as it was also present in the prior examination from March 2024. Small renal cysts. PERITONEUM/RETROPERITONEUM. No lymphadenopathy by size criteria. No aortic aneurysm. Mild mesenteric edema. GASTROINTESTINAL: No obstruction. There are new postsurgical changes on the distal esophagus and at the GE junction. Colonic diverticulosis without evidence of diverticulitis. Normal appendix. REPRODUCTIVE: Marked prostamegaly again seen. The prostate impinges upon the bladder outlet. URINARY BLADDER: Intense inflammatory changes with wall thickening. There is a Alexander catheter in place. BONES: No acute findings. IMPRESSION: Intense inflammatory changes are seen involving the urinary bladder suggesting cystitis. As before, there is markedly enlarged prostate that impinges against the urinary bladder outlet. Question subtle transcortical hypoattenuation's of the renal parenchyma. Moderate roberts extranasal is present. Pyelonephritis may be present. New postoperative changes are seen along the distal esophagus and near the GE junction. New small pleural fluid is seen in the right side which also abuts the distal esophagus. It is uncertain if this pleural fluid is related to the procedure of the esophagus. Difficult to exclude esophageal/anastomotic leak. Right greater than left bibasilar densities of the lungs are likely pneumonia and atelectasis. Mild mesenteric edema. The gallbladder also appears mildly edematous. These findings are nonspecific and may be related to congestive changes of the cardiovascular system however if there is concern for acute cholecystitis, further invention with ultrasound may be considered Electronically signed by Otto Sheehan 02-09-2025 6:49 PM Discharge Plan Visit Data Chief Complaint: Hematuria Stated Complaint: BLOOD IN URINE CATH BAG/SOB ED Provider: Dell Morgan Discharge Problem: Hematuria, Pneumonia, Back pain, Pyelonephritis Condition: Fair Forms Stand Alone Forms: [facility] Prescriptions Prescriptions: No Action tamsulosin [Flomax] 0.4 mg capsule 0.4 mg PO DAILY Qty: 90 3RF dutasteride [Avodart] 0.5 mg capsule 0.5 mg PO DAILY Qty: 90 3RF Men's 50 Plus Multivitamin 400-20-370 mcg Tablet 1 tab PO QDD omeprazole 20 mg capsule,delayed release(DR/EC) 40 mg PO DAILYBB amiodarone 200 mg Tablet 200 mg PO BIDM 28 Days Qty: 56 0RF Eliquis 5 mg Tablet 5 mg PO BID Qty: 60 0RF guaifenesin [Mucinex] 600 mg Tablet Extended Release 12hr 1,200 mg PO Q12 Qty: 8 0RF acetaminophen 500 mg tablet 1,000 mg PO Q8 PRN (Reason: PAIN/ACHES/FEVER) docusate sodium 100 mg capsule 100 mg PO BID PRN (Reason: Constipation) Referrals Referrals: Ryann Doty MD [Primary Care Provider] - Discharge Problem: Hematuria Qualifiers: Hematuria type: unspecified type Qualified Code(s): R31.9 - Hematuria, unspecified Pneumonia Qualifiers: Pneumonia type: due to unspecified organism Laterality: unspecified laterality Lung location: unspecified part of lung Qualified Code(s): J18.9 - Pneumonia, unspecified organism Back pain Qualifiers: Back pain location: low back pain Chronicity: unspecified Back pain laterality: unspecified Sciatica presence: without sciatica Qualified Code(s): M54.50 - Low back pain, unspecified
[2025-02-09] MEDS: SODIUM CHLORIDE 0.9% 1,000 ML IV ONE ×2 (16:12→18:43)
[2025-02-09 16:27] LABS: Hematocrit (blood only) 34.2 % (42.0-52.0); Hemoglobin 11.9 g/dL (14.0-18.0); Immature Granulocytes # (auto) 0.02 K/uL (0.01-0.20); Immature Granulocytes % (auto) 0.3 %; Mean Corpuscular Hemoglobin 31.6 pg (25.0-34.0); Mean Corpuscular Volume 90.7 fL (80.0-100.0); Platelet Count 196 K/uL (130-400); RDW Standard Deviation 47.7 fL (36.4-46.3); Red Blood Count 3.77 M/uL (4.70-6.10); White Blood Count 6.73 K/ul (4.8-10.8)
[2025-02-09 16:43] LABS: Alanine Aminotransferase 16 U/L (7-52); Albumin Globulin Ratio 1.1 (0.9-2); Albumin Level 3.5 gm/dl (3.4-5.0); Alkaline Phosphatase 58 U/L (34-104); Anion Gap 8 (3-11); Bilirubin,Total 0.8 mg/dl (0.2-1.0); Blood Urea Nitrogen 16 mg/dl (6-23); Calcium 8.9 mg/dl (8.6-10.3); Carbon Dioxide 23 mmol/L (21-32); Chloride 106 mmol/L (98-107); Globulin 3.1 gm/dl (2.5-4.0); Glucose 111 mg/dl (70-99(Fasting)); Lipase 9 U/L (11-82); Potassium 3.8 mmol/L (3.5-5.1); Sodium 137 mmol/L (136-145); Total Protein 6.6 gm/dl (6.0-8.3)
[2025-02-09] MEDS: OPTIRAY 320 100ml IV ONE (17:20)
--- NOTE | 2025-02-09 18:49 | CT Scan Report ---
CT ABDOMEN and PELVIS with INTRAVENOUS CONTRAST HISTORY: Abdominal pain TECHNIQUE: CT abdomen and pelvis with contrast. IV CONTRAST: 100 mL of OMNIPAQUE 300 ENTERIC CONTRAST: Not Given COMPARISON: CT abdomen and pelvis April 03, 2024. FINDINGS: LOWER CHEST: There is a new right-sided pleural fluid. Right greater than left basilar densities may represent atelectasis and/or pneumonia. Small fluid is seen in the posterior mediastinum abutting the distal esophagus. Cardiomegaly LIVER: No focal lesion identified. Hepatic steatosis and hepatomegaly. GALLBLADDER/BILIARY: Mild wall thickening to the gallbladder. No abnormal biliary dilatation. SPLEEN: Unremarkable. PANCREAS: Unremarkable. ADRENALS: Unremarkable. KIDNEYS: Moderate perinephric stranding bilaterally. Question subtle transcortical hypoattenuations of both renal parenchyma. No definite urolithiasis. No hydronephrosis identified. A calcific density measuring 3 mm by the distal LEFT ureter is likely a pelvic phlebolith instead of a ureteral stone as it was also present in the prior examination from March 2024. Small renal cysts. PERITONEUM/RETROPERITONEUM. No lymphadenopathy by size criteria. No aortic aneurysm. Mild mesenteric edema. GASTROINTESTINAL: No obstruction. There are new postsurgical changes on the distal esophagus and at the GE junction. Colonic diverticulosis without evidence of diverticulitis. Normal appendix. REPRODUCTIVE: Marked prostamegaly again seen. The prostate impinges upon the bladder outlet. URINARY BLADDER: Intense inflammatory changes with wall thickening. There is a Alexander catheter in place. BONES: No acute findings. IMPRESSION: Intense inflammatory changes are seen involving the urinary bladder suggesting cystitis. As before, there is markedly enlarged prostate that impinges against the urinary bladder outlet. Question subtle transcortical hypoattenuation's of the renal parenchyma. Moderate roberts extranasal is present. Pyelonephritis may be present. New postoperative changes are seen along the distal esophagus and near the GE junction. New small pleural fluid is seen in the right side which also abuts the distal esophagus. It is uncertain if this pleural fluid is related to the procedure of the esophagus. Difficult to exclude esophageal/anastomotic leak. Right greater than left bibasilar densities of the lungs are likely pneumonia and atelectasis. Mild mesenteric edema. The gallbladder also appears mildly edematous. These findings are nonspecific and may be related to congestive changes of the cardiovascular system however if there is concern for acute cholecystitis, further invention with ultrasound may be considered Electronically signed by Otto Sheehan 02-09-2025 6:49 PM
[2025-02-09] MEDS ORDERED: VANCOMYCIN CONSULT ACTIVE PRN (19:11)
[2025-02-09] MEDS: cefTRIAXone SODIUM 2,000 MG/50 ML BAG IV STA (19:15)
[2025-02-09 19:27] LABS: Appearance Urine Turbid (Clear); Glucose Urine UA Negative (Negative)
[2025-02-09 19:32] LABS: Epithelial Cell Urine 0-2 /hpf (0-2)
[2025-02-09] MEDS: CEFEPIME 2000MG 2,000 MG/20 ML SYR IV STA (19:42)
--- NOTE | 2025-02-09 19:50 | History & Physical Report ---
Date of Service February 09, 2025 Assessment & Plan (1) Pneumonia: (2) Hematuria: (3) Pyelonephritis: (4) Adenocarcinoma of esophagus: (5) Dyslipidemia: (6) Atrial flutter: Plan 70yo male presenting with shortness of breath, generalized fatigue. #Pneumonia / new right sided pleural effusion -patient afebrile, no leukocytosis, non-toxic in appearance. No respiratory distress. Adequate oxygenation on room air. Recent esophagectomy performed at [facility] in November 2024. Recent admission for pneumonia s/p completion of antibiotics yesterday. Noted on CT abdomen and pelvis, cannot fully rule out anastomotic leak. Patient with recent pneumonia, ?parapneumonic effusion to be considered as well. -Admit to medical with telemetry -Esophagram/FL barium swallow ordered to rule out anastomotic leak - If negative would consider Pulmonary consultation for thoracentesis to further assess for possible parapneumonic effusion, possible malignancy given recent PET scan results - if obtained, fluid should be sent for cytology as well. -Maintain aspiration precautions -NPO for now for esophagram -LR at 125mL/hr x 2L ordered -Cefepime -MRSA nares NEGATIVE 01/31 #Hematuria - patient with bloody urine output for the last several days, recently started on Apixaban for atrial fibrillation. Patient with chronic, indwelling Alexander catheter for urinary retention. He follows with [facility]. -Exchange Alexander catheter -Follow urine culture -Hold Eliquis for now - last dose reported to be 02/08/25 PM dose -Urology consultation appreciated -Irrigate Alexander as needed -Continue Flomax #Pyelonephritis - CT notes possible pyelonephritis. UA with no bacteria present -Check urine culture -Continue Cefepime #Atrial fibrillation - patient with recent admission for AF with RVR. She was started on Apixaban anticoagulation as well as Amiodarone. Patient bradycardic at present with HR in the 50's - largely asymptomatic, however, he does endorse some dizziness and occasional lightheadedness. Uncertain if this is secondary to patient's heart rate vs other medical issues ongoing at present. -Telemetry monitoring -Will hold Amiodarone for now given bradycardia -Will hold Apixaban for now given hematuria #Adenocarcinoma of the esophagus - unfortunately patient's most recent PT scan suggests progression of disease. Patient follows with Hematology/Oncology at [facility] -Obtain records -Patient tentatively scheduled to start chemotherapy 02/27 History of Present Illness Chief Complaint: shortness of breath Primary Care Provider: Ryann Doty MD Justyn Monroy is a pleasant 70yo male with history of adenocarcinoma of the esophagus s/p esophagectomy in November 2024. He is on immunotherapy and follows with Hematology/Oncology at [facility]. Patient with recent hospitalization from 01/31 - 02/02/25 after presenting with palpitations and chest heaviness. He was found to be in atrial fibrillation and to have bilateral PNA. He was treated with antibiotics and started on Amiodarone as well as Apixaban for anticoagulation. Patient has been compliant with his new medications - reports he completed his Doxycycline and Augmentin yesterday. Today patient complaining of generalized weakness as well as shortness of breath at rest as well as with exertion, having difficulty climbing his stairs at home. He has had occasional cough with holly sputum as well as lightheadedness. Patient notes dark, bloody hematuria ongoing for the last three days - no clots. He has some mild anterior right rib discomfort. Occasional dizziness. Denies chest pain, SOB, no edema or significant weight gain. Patient with urinary retention. Has had an indwelling Alexander in place since November. He follows with Urology at [facility]. Last changed during his most recent hospitalization. He has a Urology appointment on March 02 for cystoscopy. Patient had a PET scan performed at [facility] on 02/07/25 which revealed - Interval progression of metastatic disease: Widespread metabolically active osseous metas tatic disease involving axial and proximal appendicular skeleton. New metabolic active lymph nodes in the cervical, thoracic and retroperitoneal region worrisome of kathy metastatic disease. New RLL infiltrate and small to moderate size pleural effusion. Please correlate with history of recent chest infection/aspiration pneumonia. Multiple nonacute incidental findings on CT. Patient has a followup appointment on 02/27/25. In the ER she is afebrile, HD stable ER Course: NXX x 2L Cefepime 2gm Vancomycin 1500mg Guaifenesin LR Tylenol Allergies Allergy/AdvReac Type Severity Reaction Status Date / Time latex Allergy Intermediate Itching Verified 02/09/25 17:41 Penicillins Allergy Intermediate RASH Verified 02/09/25 17:41 Home Medications Medication Instructions Recorded Confirmed Type qdwmuydkbwwh-vwo-ghsit acid-vit 1 tab PO QDD 06/02/18 02/09/25 History K-lycop 400 mcg-20 mcg-370 mcg tablet (Men's 50 Plus Multivitamin) omeprazole 20 mg capsule,delayed 40 mg PO DAILYBB 07/04/20 02/09/25 History release dutasteride 0.5 mg capsule 0.5 mg PO DAILY #90 caps 02/04/24 02/09/25 Rx (Avodart) tamsulosin 0.4 mg capsule (Flomax) 0.4 mg PO DAILY #90 caps 02/04/24 02/09/25 Rx amiodarone 200 mg tablet 200 mg PO BIDM 28 days #56 tabs 02/02/25 02/09/25 Rx apixaban 5 mg tablet (Eliquis) 5 mg PO BID #60 tabs 02/02/25 02/09/25 Rx guaifenesin 600 mg tablet, 1,200 mg (2 x 600 mg) PO Q12 #8 02/02/25 02/09/25 Rx extended release 12 hr (Mucinex) tabs acetaminophen 500 mg tablet 1,000 mg PO Q8 PRN PAIN/ACHES/FEVER 02/09/25 02/09/25 History docusate sodium 100 mg capsule 100 mg PO BID PRN Constipation 02/09/25 02/09/25 History Past Med/Surg History Problem List Pyelonephritis (Acute) Back pain (Acute) Pneumonia (Acute) Hematuria (Acute) Chest pain Adenocarcinoma of esophagus Pneumonia (Acute) Catheter-associated urinary tract infection Atrial fibrillation with RVR (Acute) Dyslipidemia Status post catheter ablation of atrial flutter Sinus bradycardia Dyspnea on exertion BPH with obstruction/lower urinary tract symptoms (Chronic) Open finger fracture Acute bronchitis (Acute) Hypokalemia Acute renal insufficiency Sepsis (Acute) Acute UTI (Acute) Acute epididymitis (Acute) Atrial flutter, paroxysmal LVH (left ventricular hypertrophy) HLD (hyperlipidemia) GERD (gastroesophageal reflux disease) Hyperglycemia Epididymitis Laceration of right little finger w/o foreign body w/o damage to nail (Acute) Atrial flutter Surgical History History of hernia surgery History of partial thyroidectomy Family History Mother Diabetes Social History Smoking Status: Former smoker Second Hand Exposure: No; Do You Dip or Chew Tobacco: No; Hx Alcohol Use: No Hx Substance Use: No Preferred Language: Anguillan Communication Ability: Effective Visual Impairment: No Limitations Hearing Ability: Normal Stain Maker Required: No Beliefs That Will Affect Care: None marital status: Current Living Situation: Spouse current occupational status: employed current occupation: [employer] of [employer] at [employer] Feels Safe at Home: Yes Safety Concerns: Feels Safe At This Time Assistive Devices: None Review of Systems Review of Systems: General: Patient denies fevers, chills, malaise, weight loss or weight gain Skin: Patient denies bruising, bleeding or rash HEENT: Patient denies headache, visual changes, sore throat, difficulty swallowing, stiff neck Cardio: Patient denies chest pain, palpitations, shortness of breath, lightheadedness Pulmonary: Patient denies cough, wheeze GI: Patient denies abdominal pain, nausea, vomiting, diarrhea, constipation : Patient denies dysuria, frequency, urgency or hematuria Musculoskeletal: Patient denies swelling or pain of the joints, edema Neuro: Patient denies numbness, tingling, weakness or falls Psych: Patient denies depression, anxiety Physical Exam Physical Exam: General: patient resting comfortably, NAD, non-toxic in appearance, AA&O x 4 Skin: warm, dry, intact, no rashes or lesions HEENT: NC/AT, PERRL, EOMI, anicteric sclera, conjunctiva without injection, external ear normal to inspection and nontender, nares patent, moist mucus membranes, dentition intact, no oropharyngeal lesions, neck supple, trachea midline, no LAD, no thyromegaly, no JVD Heart: +S1/S2, regular, no m/r/g Lungs: equal air entry bilaterally, diminished breath sounds in right base, coarse breath sounds bilaterally, no wheezing Abd: +BS, soft, NT/ND, no masses/organomegaly/ascites Ext: warm, 2+ pulses in UE/LE bilaterally, no clubbing/cyanosis or edema, Alexander catheter with leg bag in place, bloody output with no clots. Neuro: nonfocal, patient AA&O x 4, speech intact, no facial droop, moving all extremities on command with equal strength 5/5 Results & Data Results & Data Vital Signs (Past 12 Hours) Vital Signs Temp Pulse Pulse Resp BP BP Pulse Ox 02/09/25 19:18 58 L 20 141/83 H 97 02/09/25 18:10 57 L 19 128/82 97 02/09/25 16:15 36.7 C 02/09/25 16:13 60 02/09/25 16:02 61 22 110/66 95 02/09/25 15:49 95 02/09/25 15:42 35.9 C L 69 18 103/62 96 O2 Del Method 02/09/25 19:18 02/09/25 18:10 Room Air 02/09/25 16:15 02/09/25 16:13 02/09/25 16:02 02/09/25 15:49 Room Air 02/09/25 15:42 Room Air Laboratory Results Laboratory Results WBC 6.73 K/ul (4.8-10.8) 02/09/25 16:12 RBC 3.77 M/uL (4.70-6.10) L 02/09/25 16:12 Hgb 11.9 g/dL (14.0-18.0) L 02/09/25 16:12 Hct 34.2 % (42.0-52.0) L 02/09/25 16:12 MCV 90.7 fL (80.0-100.0) 02/09/25 16:12 MCH 31.6 pg (25.0-34.0) 02/09/25 16:12 MCHC 34.8 g/dL (32.0-36.0) 02/09/25 16:12 RDW Std Deviation 47.7 fL (36.4-46.3) H 02/09/25 16:12 RDW Coeff of Kvng 14.3 % (11.5-14.5) 02/09/25 16:12 Plt Count 196 K/uL (130-400) 02/09/25 16:12 MPV 9.0 fL (9.4-12.4) L 02/09/25 16:12 Immature Gran % (Auto) 0.3 % 02/09/25 16:12 Neut % (Auto) 84.6 % 02/09/25 16:12 Lymph % (Auto) 6.1 % 02/09/25 16:12 [place] % (Auto) 6.8 % 02/09/25 16:12 Eos % (Auto) 1.6 % 02/09/25 16:12 Baso % (Auto) 0.6 % 02/09/25 16:12 Neut # (Auto) 5.69 K/uL (1.40-6.50) 02/09/25 16:12 Lymph # (Auto) 0.41 K/uL (1.20-3.40) L 02/09/25 16:12 [place] # (Auto) 0.46 K/uL (0.11-0.59) 02/09/25 16:12 Eos # (Auto) 0.11 K/uL (0.00-0.50) 02/09/25 16:12 Baso # (Auto) 0.04 K/uL (0.00-0.20) 02/09/25 16:12 Immature Gran # (Auto) 0.02 K/uL (0.01-0.20) 02/09/25 16:12 Sodium 137 mmol/L (136-145) 02/09/25 16:12 Potassium 3.8 mmol/L (3.5-5.1) 02/09/25 16:12 Chloride 106 mmol/L (98-107) 02/09/25 16:12 Carbon Dioxide 23 mmol/L (21-32) 02/09/25 16:12 Anion Gap 8 (3-11) 02/09/25 16:12 BUN 16 mg/dl (6-23) 02/09/25 16:12 Creatinine 0.96 mg/dl (0.6-1.4) 02/09/25 16:12 Est Cr Clr Drug Dosing Not Reportable 02/09/25 16:12 eGFR 86.10 02/09/25 16:12 BUN/Creatinine Ratio 16.7 (10-20) 02/09/25 16:12 Glucose 111 mg/dl (70-99(Fasting)) H 02/09/25 16:12 Calcium 8.9 mg/dl (8.6-10.3) 02/09/25 16:12 Total Bilirubin 0.8 mg/dl (0.2-1.0) 02/09/25 16:12 AST 16 U/L (13-39) 02/09/25 16:12 ALT 16 U/L (7-52) 02/09/25 16:12 Alkaline Phosphatase 58 U/L (34-104) 02/09/25 16:12 B-Natriuretic Peptide 53 pg/ml (0-100) 02/09/25 21:50 Total Protein 6.6 gm/dl (6.0-8.3) 02/09/25 16:12 Albumin 3.5 gm/dl (3.4-5.0) 02/09/25 16:12 Globulin 3.1 gm/dl (2.5-4.0) 02/09/25 16:12 Albumin/Globulin Ratio 1.1 (0.9-2) 02/09/25 16:12 Lipase 9 U/L (11-82) L 02/09/25 16:12 Procalcitonin 0.07 ng/ml (0-0.5) 02/09/25 16:12 Urine Color Red 02/09/25 19:07 Urine Appearance Turbid (Clear) A 02/09/25 19:07 Urine pH 6.0 (4.5-7.5) 02/09/25 19:07 Ur Specific [place] 1.020 (1.000-1.030) 02/09/25 19:07 Urine Protein 3+ (Negative) H 02/09/25 19:07 Urine Glucose (UA) Negative (Negative) 02/09/25 19:07 Urine Ketones 3+ (Negative) H 02/09/25 19:07 Urine Blood 3+ (Negative) H 02/09/25 19:07 Urine Nitrite Negative (Negative) 02/09/25 19:07 Urine Bilirubin 1+ (Negative) H 02/09/25 19:07 Urine Urobilinogen Negative (Negative) 02/09/25 19:07 Ur Leukocyte Esterase Negative (Negative) 02/09/25 19:07 Urine RBC >20 /hpf (0-2) H 02/09/25 19:07 Urine WBC 0-5 /hpf (0-5) 02/09/25 19:07 Ur Epithelial Cells 0-2 /hpf (0-2) 02/09/25 19:07 Urine Bacteria None Seen (None Seen) 02/09/25 19:07 Urine Comment 02/09/25 19:07 Impressions Abdomen/Pelvis CT 02/09/25 15:59 CT ABDOMEN and PELVIS with INTRAVENOUS CONTRAST HISTORY: Abdominal pain TECHNIQUE: CT abdomen and pelvis with contrast. IV CONTRAST: 100 mL of OMNIPAQUE 300 ENTERIC CONTRAST: Not Given COMPARISON: CT abdomen and pelvis April 03, 2024. FINDINGS: LOWER CHEST: There is a new right-sided pleural fluid. Right greater than left basilar densities may represent atelectasis and/or pneumonia. Small fluid is seen in the posterior mediastinum abutting the distal esophagus. Cardiomegaly LIVER: No focal lesion identified. Hepatic steatosis and hepatomegaly. GALLBLADDER/BILIARY: Mild wall thickening to the gallbladder. No abnormal biliary dilatation. SPLEEN: Unremarkable. PANCREAS: Unremarkable. ADRENALS: Unremarkable. KIDNEYS: Moderate perinephric stranding bilaterally. Question subtle transcortical hypoattenuations of both renal parenchyma. No definite urolithiasis. No hydronephrosis identified. A calcific density measuring 3 mm by the distal LEFT ureter is likely a pelvic phlebolith instead of a ureteral stone as it was also present in the prior examination from March 2024. Small renal cysts. PERITONEUM/RETROPERITONEUM. No lymphadenopathy by size criteria. No aortic aneurysm. Mild mesenteric edema. GASTROINTESTINAL: No obstruction. There are new postsurgical changes on the distal esophagus and at the GE junction. Colonic diverticulosis without evidence of diverticulitis. Normal appendix. REPRODUCTIVE: Marked prostamegaly again seen. The prostate impinges upon the bladder outlet. URINARY BLADDER: Intense inflammatory changes with wall thickening. There is a Alexander catheter in place. BONES: No acute findings. IMPRESSION: Intense inflammatory changes are seen involving the urinary bladder suggesting cystitis. As before, there is markedly enlarged prostate that impinges against the urinary bladder outlet. Question subtle transcortical hypoattenuation's of the renal parenchyma. Moderate roberts extranasal is present. Pyelonephritis may be present. New postoperative changes are seen along the distal esophagus and near the GE junction. New small pleural fluid is seen in the right side which also abuts the distal esophagus. It is uncertain if this pleural fluid is related to the procedure of the esophagus. Difficult to exclude esophageal/anastomotic leak. Right greater than left bibasilar densities of the lungs are likely pneumonia and atelectasis. Mild mesenteric edema. The gallbladder also appears mildly edematous. These findings are nonspecific and may be related to congestive changes of the cardiovascular system however if there is concern for acute cholecystitis, further invention with ultrasound may be considered Electronically signed by Otto Sheehan 02-09-2025 6:49 PM Code Status & VTE Plan VTE Prophylaxis Plan VTE Prophylaxis will be ordered: Yes PG Care Time/CCT Total # of Minutes Spent Total Time Spent with Patient: Total time spent is greater than 50% in coordination of care (as documented) at patient's floor/unit and/or counseling patient: Coding Level of Care Code 62296 INT INP/OBS CARE 375MIN Diagnoses Pneumonia J18.9 Laterality: unspecified laterality Lung location: unspecified part of lung Pneumonia type: due to unspecified organism Hematuria R31.9 Hematuria type: unspecified type Pyelonephritis N12 Adenocarcinoma of esophagus C15.9 Dyslipidemia E78.5 Atrial flutter, unspecified type I48.92 Atrial flutter type: unspecified (1) Pneumonia Laterality: unspecified laterality Lung location: unspecified part of lung Pneumonia type: due to unspecified organism Qualified Code(s): J18.9 - Pneumonia, unspecified organism (2) Hematuria Hematuria type: unspecified type Qualified Code(s): R31.9 - Hematuria, unspecified (6) Atrial flutter Atrial flutter type: unspecified Qualified Code(s): I48.92 - Unspecified atrial flutter
[2025-02-09] MEDS: VANCOMYCIN HCL 1,500 MG in SODIUM CHLORIDE 0.9% 500 ML IV ONE (20:00)
[2025-02-09] MEDS ORDERED: ONDANSETRON INJ 2 MG/ML 2 ML VIAL IV PRN (21:26)
[2025-02-09] MEDS: guaiFENesin 600 MG TABCR PO SCH (22:07)
[2025-02-09] MEDS: CEFEPIME 2000MG 2,000 MG/20 ML SYR IV SCH (22:08)
[2025-02-09] MEDS: LACTATED RINGER'S 1,000 ML IV SCH (22:15)
[2025-02-09] MEDS: ACETAMINOPHEN 500 MG TAB PO PRN (22:18)
[2025-02-10] MEDS: LIDOCAINE 5% 1 PATCH TD STA (01:13)
--- NOTE | 2025-02-10 08:07 | XRay Report ---
XR chest 1V portable CLINICAL HISTORY: pleural effusion COMPARISON STUDY: 01/31/2025 FINDINGS: Stable mild cardiomegaly with mild pulmonary vascular congestion. Stable hazy opacity at th e right lung base with obscuration of the right hemidiaphragm. Stable mild stranding at the left base . No pneumothorax. IMPRESSION: Stable exam. ACT 112: Negative or not required by law. Electronically signed by: Jose R Meeks M.D. 02/10/2025 8:06 AM
--- NOTE | 2025-02-10 09:23 | Urology Consultation ---
Date of Consultation February 10, 2025 Assessment & Plan (1) Hematuria: (2) BPH with obstruction/lower urinary tract symptoms: Plan 70-year-old male with chronic outlet obstruction managed by Alexander catheter who follows with [place] [facility]. He was admitted for numerous health issues including gross hematuria via his catheter. He recently was started on Eliquis for atrial fibrillation Hematuria is very mild right now and would recommend restarting Eliquis and we can manage catheter as needed. As long as catheter is draining, no intervention necessary Nursing can hand irrigate as necessary Maintain follow-up with [facility] Maintain Alexander catheter Patient is already antibiotics but suspect culture will likely be positive as he is colonized. This does not sound like an acute UTI but if they wish to treat this as such, would recommend 10 to 14 days of total antibiotics Urology to sign off History of Present Illness Attending Physician: Dell Gao, DO History of Present Illness 70-year-old male with a history of BPH and urinary retention currently managed with a catheter who follows with [facility] urology. He reports they are planning a cystoscopy in February for what I assume is a bladder outlet obstruction workup in anticipation of surgery. He is unsure what urologist he follows with. He is currently admitted for several issues but urology was consulted as he noticed hematuria. He recently was started on Eliquis for atrial fibrillation. He does not report obstruction of the catheter. Labs show white blood cell count 6.7, hemoglobin 11.9, creatinine of 0.96 and a urinalysis that was positive for microscopic hematuria. CT scan of the abdomen pelvis was performed which I independently reviewed this shows a decompressed bladder with a Alexander catheter in place and an enlarged prostate. He is currently on cefepime and received ceftriaxone in the emergency department Urine is light, thin red currently. Allergies Allergy/AdvReac Type Severity Reaction Status Date / Time latex Allergy Intermediate Itching Verified 02/09/25 17:41 Penicillins Allergy Intermediate RASH Verified 02/09/25 17:41 Home Medications Medication Instructions Recorded Confirmed Type eiovtfdvabkt-mpn-smpff acid-vit 1 tab PO QDD 06/02/18 02/09/25 History K-lycop 400 mcg-20 mcg-370 mcg tablet (Men's 50 Plus Multivitamin) omeprazole 20 mg capsule,delayed 40 mg PO DAILYBB 07/04/20 02/09/25 History release dutasteride 0.5 mg capsule 0.5 mg PO DAILY #90 caps 02/04/24 02/09/25 Rx (Avodart) tamsulosin 0.4 mg capsule (Flomax) 0.4 mg PO DAILY #90 caps 02/04/24 02/09/25 Rx amiodarone 200 mg tablet 200 mg PO BIDM 28 days #56 tabs 02/02/25 02/09/25 Rx apixaban 5 mg tablet (Eliquis) 5 mg PO BID #60 tabs 02/02/25 02/09/25 Rx guaifenesin 600 mg tablet, 1,200 mg (2 x 600 mg) PO Q12 #8 02/02/25 02/09/25 Rx extended release 12 hr (Mucinex) tabs acetaminophen 500 mg tablet 1,000 mg PO Q8 PRN PAIN/ACHES/FEVER 02/09/25 02/09/25 History docusate sodium 100 mg capsule 100 mg PO BID PRN Constipation 02/09/25 02/09/25 History Patient History Surgical History History of hernia surgery History of partial thyroidectomy Family History Mother Diabetes Social History Smoking Status: Former smoker Second Hand Exposure: No; Do You Dip or Chew Tobacco: No; Hx Alcohol Use: No Hx Substance Use: No Preferred Language: Kazakh Communication Ability: Effective Visual Impairment: No Limitations Hearing Ability: Normal Animal Care Supervisor Required: No Beliefs That Will Affect Care: None marital status: Current Living Situation: Spouse current occupational status: employed current occupation: [employer] of the [employer] at [employer] Feels Safe at Home: Yes Safety Concerns: Feels Safe At This Time Assistive Devices: None Physical Exam Physical Exam: General: Alert and oriented, no acute distress HEENT: Normocephalic, mucous membranes moist Pulmonary: Nonlabored respirations Abdomen: Nondistended : Extremities: Moves all 4 spontaneously Neuro: No gross deficits Skin: Warm, dry, no rashes noted Results & Data Vital Signs (Past 12 Hours) Vital Signs Temp Pulse Pulse Pulse Resp BP Pulse Ox 02/10/25 08:28 36.8 C 67 17 143/83 H 95 02/10/25 07:37 55 L 02/10/25 02:47 36.6 C 57 L 18 129/78 94 02/09/25 22:15 02/09/25 22:15 36.4 C L 54 L 16 145/83 H 97 02/09/25 21:40 54 L O2 Del Method 02/10/25 08:28 Room Air 02/10/25 07:37 02/10/25 02:47 Room Air 02/09/25 22:15 Room Air 02/09/25 22:15 Room Air 02/09/25 21:40 PG Care Time/CCT Total # of Minutes Spent Total Time Spent with Patient: Total time spent is greater than 50% in coordination of care (as documented) at patient's floor/unit and/or counseling patient: Coding Level of Care Code 76962 INT INP/OBS CARE 2/55MIN Diagnoses Hematuria R31.9 Hematuria type: unspecified type BPH with obstruction/lower urinary tract symptoms N40.1; N13.8 (1) Hematuria Hematuria type: unspecified type Qualified Code(s): R31.9 - Hematuria, unspecified
[2025-02-10] MEDS: TAMSULOSIN HCL 0.4 MG CAP PO SCH (10:19)
--- NOTE | 2025-02-10 14:23 | Hospitalist Progress Note ---
Date of Service February 10, 2025 Assessment & Plan (1) Pneumonia: (2) Hematuria: (3) Pyelonephritis: (4) Adenocarcinoma of esophagus: (5) Dyslipidemia: (6) Atrial flutter: Plan 70yo male presenting with shortness of breath, generalized fatigue. #Pneumonia / new right sided pleural effusion - - Not entirely clear if there truly is a new pneumonia or not, differentials including esophageal leak and pleural effusion from the leak, or residual effusion from pneumonia last week, or malignant effusion from metastatic disease - initially had barium swallow orderedthis would not be able to be done for another 3 days, in discussion with radiology CT chest and abdomen with oral contrast would be just as usefulthis was ordered; if anastomotic leak noted, will need to contact [place]; if no leak, probably maintain on antibiotics for 24-48 hours and follow; low threshold for diagnostic thoracentesis versus home with close outpatient follow-up depending on his clinical progress #Hematuria - - appreciate urology assistance. Resume apixaban, maintain Alexander drainage #Pyelonephritis - - not consistent with clinical picture, on antibiotics for possible lung infection as above. Follow clinically #Atrial fibrillation - rate controlled, resuming apixaban #Adenocarcinoma of the esophagus - unfortunately patient's most recent PT scan suggests progression of disease. Patient follows with Hematology/Oncology at [facility] [place] -Obtain records -Patient tentatively scheduled to start chemotherapy 02/27 Admission and Anticipated Discharge Date Admission Date: February 09, 2025 Subjective feeling okay. Wonders about what all is going on. No new complaints. Barium swallow had been orderednot done throughout the morningI called radiology to check on statusand was then informed there were no technicians to do this until 02/13. Discussed with radiologist on-call who felt that for the purposes of determining a potential esophageal anastomotic leak, a CT with oral contrast may be just as good anywayorders changed. Patient updated. Review of Systems Review of Systems: All systems reviewed & are unremarkable except as noted in HPI & below Physical Exam Physical Exam: In general he is awake alert oriented pleasant no distress. HEENT normocephalic atraumatic mucous membranes moist. Breathing unlabored no accessory muscle use good effort. Skin without rashes pallor or icterus. Neuro without focal deficits. Results & Data Results & Data Vital Signs (Past 12 Hours) Vital Signs Temp Pulse Pulse Resp BP Pulse Ox O2 Del Method 02/10/25 11:41 97.9 F 58 L 18 133/76 95 Room Air 02/10/25 08:28 98.2 F 67 17 143/83 H 95 Room Air 02/10/25 07:37 55 L 02/10/25 02:47 97.9 F 57 L 18 129/78 94 Room Air PG Care Time/CCT Total # of Minutes Spent Total Time Spent with Patient: Total time spent is greater than 50% in coordination of care (as documented) at patient's floor/unit and/or counseling patient: Coding Level of Care Code 87675 SUB INP/OBS CARE 3/50MIN Diagnoses Pneumonia J18.9 Laterality: unspecified laterality Lung location: unspecified part of lung Pneumonia type: due to unspecified organism Hematuria R31.9 Hematuria type: unspecified type Pyelonephritis N12 Adenocarcinoma of esophagus C15.9 Dyslipidemia E78.5 Atrial flutter, unspecified type I48.92 Atrial flutter type: unspecified (1) Pneumonia Laterality: unspecified laterality Lung location: unspecified part of lung Pneumonia type: due to unspecified organism Qualified Code(s): J18.9 - Pneumonia, unspecified organism (2) Hematuria Hematuria type: unspecified type Qualified Code(s): R31.9 - Hematuria, unspecified (6) Atrial flutter Atrial flutter type: unspecified Qualified Code(s): I48.92 - Unspecified atrial flutter
[2025-02-10] MEDS: APIXABAN 5 MG TABLET PO SCH (21:10)
[2025-02-10] MEDS: REMOVE LIDODERM PATCH SCH (21:10)
--- NOTE | 2025-02-11 07:11 | Hospitalist Progress Note ---
Date of Service February 11, 2025 Assessment & Plan (1) Pneumonia: (2) Adenocarcinoma of esophagus: (3) Hematuria: (4) Dyslipidemia: (5) Atrial flutter: Plan 70yo male with PMHx esophageal carcinoma undergoing chemo and radiation, and chronic lower urinary tract obstruction (has ring) presenting with gross hematuria, shortness of breath, generalized fatigue. Was started on cefepime for presumed UTI / pneumonia, clinically improving. Undergoing CT with oral contrast to investigate for anastomosis between GI tract and R pleural space. Requires continued admission for continued evaluation of current illness and medical stabilization. #RLL pneumonia # R>L pleural effusion, new differentials including esophageal leak and pleural effusion from the leak, residual effusion from pneumonia last week, or malignant effusion from metastatic disease - initially had barium swallow orderedthis would not be able to be done for another 3 days, in discussion with radiology CT chest and abdomen with oral contrast would be just as usefulthis was ordered; if anastomotic leak noted, will need to contact [place]; if no leak, probably maintain on antibiotics for 24-48 hours and follow; low threshold for diagnostic thoracentesis versus home with close outpatient follow-up depending on his clinical progress 02/11 CT chest/abd/pelvis w/ PO contrast: read pending NPO until read confirms lack of anastomotic leakage, added LR 100cc/hr Continue on IV cefepime for now #Hematuria, improving - urology not concerned as long as good catheter flow - Eliquis has been resumed, maintain Ring drainage #?Pyelonephritis - not consistent with clinical picture, on antibiotics for possible lung infection as above. Follow clinically #Atrial fibrillation - rate controlled on amio 200mg BIDM, back on eliquis #Adenocarcinoma, distal esophagus - unfortunately patient's most recent PT scan suggests progression of disease. Patient follows with Hematology/Oncology at [facility] records show he just had 2nd round (out of 12) of adjuvant Nivolumab on 01/30/25 for distal adenocarcinoma, s/p carboplatin and paclitaxel concurrent w/ radiation therapy and Matt-Bebeto esophacectomy - ?patient tentatively scheduled to start chemotherapy 02/27 Admission and Anticipated Discharge Date Admission Date: February 09, 2025 Supervising Physician Co-Signing Physician Notes During face to face encounter, I asked patient if he had and complaints and performed a physical examination, discussed plan of care with patient and answered any questions. I discussed plan of care with Dr. Hutchins I reviewed above note and agree with it except for the following: Patient with a unilateral effussion. This likely will require a thoracocenthesis. Will consult pulmonary and await input Reviewed CT scan and there appears to be enough fluid to remove. Subjective Seen and evaluated this AM, feeling well. Overnight no concerns. Endorses improvement of blood in urine, denies any pain anywhere at this time. States he's been tolerating food, understands we're getting a CT to evaluate for connection between GI tract and lung space Denies fever, chills, sweats. Physical Exam Physical Exam: Gen: no acute distress, A&Ox3 Resp: normal respiratory effort, diminished air mvmt b/l bases but otherwise clear to auscultation, no w/r/R CV: RRR, no m/r/g GI/Abd: +BS, nontender to palpation Ext: no lower extremity edema, no calf tenderness : Ring in place, urine improving in color to more clear/yellow Results & Data Results & Data Vital Signs (Past 12 Hours) Vital Signs Temp Pulse Pulse Resp BP Pulse Ox O2 Del Method 02/11/25 02:48 37.1 C 67 16 120/75 93 Room Air 02/10/25 22:26 36.9 C 71 16 109/68 93 Room Air 02/10/25 22:02 71 02/10/25 21:15 Room Air 02/10/25 19:14 37 C 77 18 119/72 92 Room Air Resident Activity Tracking Resident Involvement: Resident Care Provided Care Provided: Adult Hospital Medicine (1) Pneumonia Laterality: unspecified laterality Lung location: unspecified part of lung Pneumonia type: due to unspecified organism Qualified Code(s): J18.9 - Pneumonia, unspecified organism (3) Hematuria Hematuria type: unspecified type Qualified Code(s): R31.9 - Hematuria, unspecified (5) Atrial flutter Atrial flutter type: unspecified Qualified Code(s): I48.92 - Unspecified atrial flutter
--- NOTE | 2025-02-11 11:24 | CT Scan Report ---
Clinical History: Possible anastomotic leak Technique: Axial computed tomography images were obtained of the abdomen without intravenous contrast. Oral contrast was given Comparison is made to the prior CT dated 02/09/2025 Findings: The liver is overall of normal size, attenuation, and contour with no sign of cirrhosis or significant fatty infiltration. No definite liver mass lesion is seen on this noncontrast study. There is unchanged mild gallbladder wall thickening. No clear gallstones are seen. No bile duct dilatation is noted. The spleen is of normal size. No focal splenic lesion is evident. The pancreas appears normal with no sign of acute or chronic pancreatitis and no mass lesion noted. The pancreatic duct is of normal caliber. The adrenal glands appear unremarkable. No renal or proximal ureteral calculi are seen. There is no hydronephrosis or perinephric stranding. No definite renal mass lesion is identified. There is an unchanged small 6 mm cyst in the mid left kidney The abdominal aorta is of normal caliber. No abdominal adenopathy is seen. There is a moderate sized hiatal hernia. Surgical sutures are again seen involving the stomach. There is no definite sign of oral contrast leakage. The visualized bowel appears unremarkable. No free intraperitoneal air is identified. There is a small amount of ascites No fracture is identified. No focal osseous lesion is seen Impression: 1. No definite sign of anastomotic leak from the stomach or visualized bowel 2. Small amount of ascites 3. Unchanged mild gallbladder wall thickening that could be due to the ascites or other generalized edematous state. No clear gallstones are seen 4. Unchanged small left renal cyst 5. Hiatal hernia ACT 112: Positive. There are findings on this exam that require communication between the performing entity and the patient following Patient Test Result Information Act ([place] ACT 112) guidelines. Electronically signed by Filiberto Bhatia 02-11-2025 11:23 AM
--- NOTE | 2025-02-11 11:27 | CT Scan Report ---
Technique: Axial computed tomography images were obtained of the chest without intravenous contrast Comparison is made to the prior chest CT dated 04/03/2024 Findings: There is right lower lobe alveolar consolidation, concerning for pneumonia. There is left lower lobe atelectasis. There is no pneumothorax. There is a new moderate sized right pleural effusion and there is a small left pleural effusion. No endobronchial lesion is seen There is no mediastinal, hilar, or axillary adenopathy. The thoracic aorta is of normal caliber. There is no pericardial effusion The visualized upper abdomen appears unremarkable. No fracture is seen. No focal osseous lesion is evident Impression: 1. Right lower lobe pneumonia 2. Right larger than left pleural effusions ACT 112: Positive. There are findings on this exam that require communication between the performing entity and the patient following Patient Test Result Information Act ([place] ACT 112) guidelines. Electronically signed by Filiberto Bhatia 02-11-2025 11:26 AM
[2025-02-11] MEDS: LACTATED RINGER'S 1,000 ML IV SCH (12:05)
--- NOTE | 2025-02-11 19:36 | Pulmonary Consultation ---
Date of Consultation February 11, 2025 Assessment & Plan (1) Pneumonia: Laterality: unspecified laterality Lung location: unspecified part of lung Pneumonia type: due to unspecified organism Qualified Code(s): J 18.9 - Pneumonia, unspecified organism (2) Adenocarcinoma of esophagus: (3) Atrial fibrillation with RVR: (4) Pleural effusion: Plan Justyn Monroy is a 70-year-old male with past medical history of atrial fibrillation on Eliquis, HLD, adenocarcinoma of the esophagus s/p esophagectomy at [facility] November 2024, Left ventricular hypertrophy, GERD, and BPH; who presented to [facility] on 02/09/2025 with generalized weakness and SOB with exertion. Of note the patient was recently admitted to [facility] from 01/31/25-02/02/25 for palpitations and chest heaviness. Pneumonia -Low likelihood for recurrent or persistent pneumonia as patient without leukocytosis and normal procal. Will order sputum culture. -Completed course of Augmentin and doxy as outpatient for pneumonia on 02/06/25. -Cant continue cefepime at this time as it will provide good gram negative coverage for urinary source as well due to concern for pyelonephritis. Will hold on MRSA coverage given negative PCR. -Would repeat chest CT in 6-8 weeks. Pleural effusion R>L -CT chest showed R>L pleural effusion. Confirmed on bedside POCUS today. -BNP 53. -Differential of pleural effusion includes parapneumonic, malignant, and possibly reactive in setting of recent esophagectomy. -Will hold Eliquis for 48hrs for thoracentesis on Thursday02/13/2025. Patient in agreement of plan. -Will order pleural fluid studies, cultures, and pathology. Atrial fibrillation -Will hold Eliquis for 48hrs in anticipation for thoracentesis on Thursday02/13/2025. -Restart 12 hours after thoracentesis Adenocarcinoma of esophagus -Concern for progression of metastatic disease on recent PET CT and oncology appointment. -Plan to start systemic chemo in February 2025. -F/U with [facility] oncology Thank you for allowing us to participate in this patients care. Please feel free to reach out with questions or concerns. 58 minutes is the time spent reviewing the chart, obtaining history, performing the physical exam, and updating the patient and bedside nurse. Supervising Physician Co-Signing Physician Notes Patient seen and examined. EMR reviewed. Discussed with GONZALEZ and agree with assessment plan as noted. Please refer to my progress note from 02/12/2025 for additional details History of Present Illness Reason for Consultation: Pneumonia and pleural effusion Attending Physician: Sam Braun History of Present Illness Justyn Monroy is a 70-year-old male with past medical history of atrial fibrillation on Eliquis, HLD, adenocarcinoma of the esophagus s/p esophagectomy at [facility] November 2024, Left ventricular hypertrophy, GERD, and BPH; who presented to [facility] on 02/09/2025 with generalized weakness and SOB with exertion. Of note the patient was recently admitted to [facility] from 01/31/25-02/02/25 for palpitations and chest heaviness. Patient at that time was found to be in atrial fibrillation and started on amiodarone and Eliquis. He was also noted to have bilateral infiltrates on CXR and was treated with CTX and Doxy and changed to Doxycycline and Augmentin to finish outpatient course. Patient was discharged home on 02/02/2025. Unfortunately, he felt progressively weak and SOB in the week since his discharge which prompted him to return on 02/09/2025. CT abdomen/pelvis and chest showed concern for pyelonephritis and concern for pneumonia with R>L pleural effusion. Patient was started on cefepime and admitted to the Hospitalist service with pulmonary consulted for concern of pneumonia and pleural effusions. Patient has a remote smoking history of 7 pack years having quite 40 years ago. 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 He has history of esophageal adenocarcinoma s/p esophagectomy in November 2024. He was on immunotherapy monthly infusions though patient does not remember which medication it is. Patient had a PET CT on 02/07/2025 which was concerning for progression of metastatic disease with osseous of the axial and proximal appendicular skeleton. There were also hypermetabolic lymph nodes noted in the cervical, thoracic, and retroperitoneal areas. Patient also stated that his Oncologist was concerned that his cancer markers were elevated and the plan was to start systemic chemotherapy on February 27 2025. Patient denies fever, chills, night sweats. Endorses a cough which can be productive at times with yellow phelgm. WBC 6.73. Procal 0.07. BNP 53. MRSA nares 01/31/2025 negative. he is oxygenating well on room air at 96%. Endorses right lateral chest wall pain with palpation. Allergies Allergy/AdvReac Type Severity Reaction Status Date / Time latex Allergy Intermediate Itching Verified 02/09/25 17:41 Penicillins Allergy Intermediate RASH Verified 02/09/25 17:41 Home Medications Medication Instructions Recorded Confirmed Type evchzbtffgok-dyg-vrdft acid-vit 1 tab PO QDD 06/02/18 02/09/25 History K-lycop 400 mcg-20 mcg-370 mcg tablet (Men's 50 Plus Multivitamin) omeprazole 20 mg capsule,delayed 40 mg PO DAILYBB 07/04/20 02/09/25 History release dutasteride 0.5 mg capsule 0.5 mg PO DAILY #90 caps 02/04/24 02/09/25 Rx (Avodart) tamsulosin 0.4 mg capsule (Flomax) 0.4 mg PO DAILY #90 caps 02/04/24 02/09/25 Rx amiodarone 200 mg tablet 200 mg PO BIDM 28 days #56 tabs 02/02/25 02/09/25 Rx apixaban 5 mg tablet (Eliquis) 5 mg PO BID #60 tabs 02/02/25 02/09/25 Rx guaifenesin 600 mg tablet, 1,200 mg (2 x 600 mg) PO Q12 #8 02/02/25 02/09/25 Rx extended release 12 hr (Mucinex) tabs acetaminophen 500 mg tablet 1,000 mg PO Q8 PRN PAIN/ACHES/FEVER 02/09/25 02/09/25 History docusate sodium 100 mg capsule 100 mg PO BID PRN Constipation 02/09/25 02/09/25 History Patient History Surgical History History of hernia surgery History of partial thyroidectomy Family History Mother Diabetes Social History Smoking Status: Former smoker Second Hand Exposure: No; Do You Dip or Chew Tobacco: No; Hx Alcohol Use: No Hx Substance Use: No Preferred Language: Chinese Communication Ability: Effective Visual Impairment: No Limitations Hearing Ability: Normal Wet Suit Gluer Required: No Beliefs That Will Affect Care: None marital status: Current Living Situation: Spouse current occupational status: employed 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 WEIGHT/BMI reviewed. GEN: Pleasant, well-developed, NAD. PSYCH: Good Judgment. AOx3. Normal memory, mood, and affect. HEENT -Head: NC/AT; -Eyes: PERRL, EOMI. No discharge or redn ess; -Ears: External ears are normal. -Nose: Normal nares. NECK: Supple, with no masses. CV: RRR, no m/r/g. LUNGS: Clear in b/l upper lobes. Diminished in bases. Breathing non labored. Chest rise symmetrical. Some tenderness on right side lateral chest with palpation. ABD: N/A : N/A SKIN: Warm, well perfused. No skin rashes or abnormal lesions. MSK: No deformities, Normal gait. EXT: No clubbing, cyanosis, or edema. NEURO: Normal muscle strength and tone. No focal deficits. Results & Data Results & Data Vital Signs (Past 12 Hours) Vital Signs Temp Pulse Pulse Resp BP Pulse Ox O2 Del Method 02/11/25 16:04 36.6 C 68 16 105/55 L 95 Room Air 02/11/25 15:27 Room Air 02/11/25 13:06 67 02/11/25 11:22 36.4 C L 60 18 132/81 95 Room Air 02/11/25 10:53 Room Air 02/11/25 08:13 63 02/11/25 07:56 36.7 C 71 16 124/77 93 Room Air Laboratory Results 02/09/25 16:12 02/09/25 16:[address] 02/10/25 13:40 Clinical History: Possible anastomotic leak Technique: Axial computed tomography images were obtained of the abdomen without intravenous contrast. Oral contrast was given Comparison is made to the prior CT dated 02/09/2025 Findings: The liver is overall of normal size, attenuation, and contour with no sign of cirrhosis or significant fatty infiltration. No definite liver mass lesion is seen on this noncontrast study. There is unchanged mild gallbladder wall thickening. No clear gallstones are seen. No bile duct dilatation is noted. The spleen is of normal size. No focal splenic lesion is evident. The pancreas appears normal with no sign of acute or chronic pancreatitis and no mass lesion noted. The pancreatic duct is of normal caliber. The adrenal glands appear unremarkable. No renal or proximal ureteral calculi are seen. There is no hydronephrosis or perinephric stranding. No definite renal mass lesion is identified. There is an unchanged small 6 mm cyst in the mid left kidney The abdominal aorta is of normal caliber. No abdominal adenopathy is seen. There is a moderate sized hiatal hernia. Surgical sutures are again seen involving the stomach. There is no definite sign of oral contrast leakage. The visualized bowel appears unremarkable. No free intraperitoneal air is identified. There is a small amount of ascites No fracture is identified. No focal osseous lesion is seen Impression: 1. No definite sign of anastomotic leak from the stomach or visualized bowel 2. Small amount of ascites 3. Unchanged mild gallbladder wall thickening that could be due to the ascites or other generalized edematous state. No clear gallstones are seen 4. Unchanged small left renal cyst 5. Hiatal hernia ACT 112: Positive. There are findings on this exam that require communication between the performing entity and the patient following Patient Test Result Information Act ([place] ACT 112) guidelines. Electronically signed by Filiberto Bhatia 02-11-2025 11:[address] 02/10/25 13:40 Technique: Axial computed tomography images were obtained of the chest without intravenous contrast Comparison is made to the prior chest CT dated 04/03/2024 Findings: There is right lower lobe alveolar consolidation, concerning for pneumonia. There is left lower lobe atelectasis. There is no pneumothorax. There is a new moderate sized right pleural effusion and there is a small left pleural effusion. No endobronchial lesion is seen There is no mediastinal, hilar, or axillary adenopathy. The thoracic aorta is of normal caliber. There is no pericardial effusion The visualized upper abdomen appears unremarkable. No fracture is seen. No focal osseous lesion is evident Impression: 1. Right lower lobe pneumonia 2. Right larger than left pleural effusions ACT 112: Positive. There are findings on this exam that require communication between the performing entity and the patient following Patient Test Result Information Act ([place] ACT 112) guidelines. Electronically signed by Filiberto Bhatia 02-11-2025 11:26 AM PG Care Time/CCT Total # of Minutes Spent Total Time Spent with Patient: Total time spent is greater than 50% in coordination of care (as documented) at patient's floor/unit and/or counseling patient: Coding Level of Care Code 43986 INT INP/OBS CARE 2/55MIN Diagnoses Pneumonia J18.9 Laterality: unspecified laterality Lung location: unspecified part of lung Pneumonia type: due to unspecified organism Adenocarcinoma of esophagus C15.9 Atrial fibrillation with RVR I48.91 Pleural effusion J90
[2025-02-11] MEDS: DOCUSATE SODIUM 100 MG CAP PO PRN (21:51)
--- NOTE | 2025-02-12 06:49 | Hospitalist Progress Note ---
Date of Service February 12, 2025 Assessment & Plan (1) Pneumonia: (2) Pleural effusion: (3) Adenocarcinoma of esophagus: (4) Hematuria: (5) Atrial flutter: Plan 70yo male with PMHx esophageal carcinoma undergoing chemo and radiation, and chronic lower urinary tract obstruction (has ring) presenting with gross hematuria, shortness of breath, generalized fatigue. Was started on cefepime for presumed UTI / pneumonia, clinically improving. CT w/ oral contrast w/ no definitive communication between GI tract and pleural spaces. Pursuing thoracentesis on 02/13, holding eliquis since 02/11. Requires continued admission for continued evaluation of current illness and medical stabilization. #RLL pneumonia vs other acute process # R>L pleural effusion, new differentials including esophageal leak and pleural effusion from the leak, residual effusion from pneumonia last week, or malignant effusion from metastatic disease - initially had barium swallow orderedthis would not be able to be done for another 3 days, in discussion with radiology CT chest and abdomen with oral contrast would be just as usefulthis was ordered; if anastomotic leak noted, will need to contact [facility]; if no leak, probably maintain on antibiotics for 24-48 hours and follow; low threshold for diagnostic thoracentesis versus home with close outpatient follow-up depending on his clinical progress 02/11 CT chest/abd/pelvis w/ PO contrast: no obvious anastomotic leak Pulm consulted, appreciate recs and interventions: plan to pursue US-guided diagnostic/therapeutic thoracentesis tomorrow 02/13 Continue on IV cefepime for now #Hematuria, improving - urology not concerned as long as good catheter flow - Eliquis held for thoracentesis 02/13 #?Pyelonephritis - not consistent with clinical picture, on antibiotics for possible lung infection as above. Follow clinically #Atrial fibrillation - rate controlled on amio 200mg BIDM; eliquis held as above #Adenocarcinoma, distal esophagus - unfortunately patient's most recent PT scan suggests progression of disease. Patient follows with Hematology/Oncology at [facility] [place] [facility] records show he just had 2nd round (out of 12) of adjuvant Nivolumab on 01/30/25 for distal adenocarcinoma, s/p carboplatin and paclitaxel concurrent w/ radiation therapy and [place]-Bebeto esophacectomy - ?patient tentatively scheduled to start chemotherapy 02/27 VTE ppx: on eliquis, currently held Diet: regular Admission and Anticipated Discharge Date Admission Date: February 11, 2025 Supervising Physician Co-Signing Physician Notes During face to face encounter, I asked patient if he had and complaints and performed a physical examination, discussed plan of care with patient and answered any questions. I discussed plan of care with Dr. Hutchins I reviewed above note and agree with it except for the following: Patient with a unilateral effussion. This likely will require a thoracocenthesis. Will consult pulmonary and await input Reviewed CT scan and there appears to be enough fluid to remove. Plan for thoracocenthesis on 02/13 Subjective Seen and evaluated this AM, feeling well. Overnight no concerns. States pulmonology saw him and plan to pursue thoracentesis 02/13, pt on board with this plan. Has been eating well, no concern using bathroom. Denies fever, chills, sweats. Physical Exam Physical Exam: Gen: no acute distress, A&Ox3 Resp: normal respiratory effort, diminished air mvmt b/l bases but otherwise clear to auscultation, no w/r/R CV: RRR, no m/r/g GI/Abd: +BS, nontender to palpation Ext: no lower extremity edema, no calf tenderness : Ring in place, urine improving in color to more clear/yellow Results & Data Results & Data Vital Signs (Past 12 Hours) Vital Signs Temp Pulse Pulse Resp BP BP Pulse Ox 02/12/25 01:59 36.7 C 69 16 122/77 93 02/11/25 22:23 36.4 C L 62 18 122/72 94 02/11/25 22:04 63 02/11/25 21:55 02/11/25 19:30 36.4 C L 64 18 103/65 93 O2 Del Method 02/12/25 01:59 Room Air 02/11/25 22:23 Room Air 02/11/25 22:04 02/11/25 21:55 Room Air 02/11/25 19:30 Room Air Resident Activity Tracking Resident Involvement: Resident Care Provided Care Provided: Adult Hospital Medicine (1) Pneumonia Laterality: unspecified laterality Lung location: unspecified part of lung Pneumonia type: due to unspecified organism Qualified Code(s): J18.9 - Pneumonia, unspecified organism (4) Hematuria Hematuria type: unspecified type Qualified Code(s): R31.9 - Hematuria, uns pecified (5) Atrial flutter Atrial flutter type: unspecified Qualified Code(s): I48.92 - Unspecified atrial flutter
[2025-02-12 07:28] LABS: Hematocrit (blood only) 35.1 % (42.0-52.0); Hemoglobin 12.5 g/dL (14.0-18.0); Mean Corpuscular Hemoglobin 32.3 pg (25.0-34.0); Mean Corpuscular Volume 90.7 fL (80.0-100.0); Platelet Count 176 K/uL (130-400); RDW Standard Deviation 46.8 fL (36.4-46.3); Red Blood Count 3.87 M/uL (4.70-6.10); White Blood Count 6.04 K/ul (4.8-10.8)
[2025-02-12 07:44] LABS: Anion Gap 9.0 (3-11); Blood Urea Nitrogen 13.0 mg/dl (6-23); Calcium 8.8 mg/dl (8.6-10.3); Carbon Dioxide 21.0 mmol/L (21-32); Chloride 105.0 mmol/L (98-107); Creatinine Clr Calc Pharmacy 99.6 ml/min; Glucose 97.0 mg/dl (70-99(Fasting)); Potassium 4.0 mmol/L (3.5-5.1); Sodium 135.0 mmol/L (136-145)
--- NOTE | 2025-02-12 08:38 | Pulmonology Progress Note ---
Date of Service February 12, 2025 Assessment & Plan (1) Pneumonia: Laterality: unspecified laterality Lung location: unspecified part of lung Pneumonia type: due to unspecified organism Qualified Code(s): J 18.9 - Pneumonia, unspecified organism (2) Adenocarcinoma of esophagus: (3) Atrial fibrillation with RVR: (4) Pleural effusion: Plan Impression: Justyn Monroy is a 70-year-old male with past medical history of atrial fibrillation on Eliquis, HLD, adenocarcinoma of the esophagus s/p esophagectomy at [facility] November 2024, Left ventricular hypertrophy, GERD, and BPH; who presented to [facility] on 02/09/2025 with generalized weakness and SOB with exertion. Of note the patient was recently admitted to [facility] from 01/31/25-02/02/25 for palpitations and chest heaviness. Recommendations: Pneumonia Unlikely that the parenchymal process in his lung represents ongoing infection. Ideally would like to correlate with his prior CT imaging to identify whether the findings identified on the current CT scan represent postoperative changes from his esophagectomy performed right thoracotomy in [place] last month. Pleural effusion R>L Differential as noted previously to include etiologies such as postoperative, related to chemotherapy, infection, or malignancy. Again review of his PET scan performed in [place] would be beneficial and this will be requested through radiology. Characterization of pleural fluid is warranted. Eliquis has been held for less than 24 hours show will continue to hold and plan on ultrasound- guided diagnostic/therapeutic thoracentesis tomorrow. Atrial fibrillation Eliquis held yesterday. Plan on thoracentesis as noted above Adenocarcinoma of esophagus Per primary Thank you for allowing us to participate in this patients care. Please feel free to reach out with questions or concerns. Will continue to follow with you Admission and Anticipated Discharge Date Admission Date: February 11, 2025 Subjective Patient seen and examined. Tumor reviewed. The patient reports he is doing well. He occasionally is coughing and expectorating some yellowish to greenish phlegm. No hemoptysis. Continues to have some chest tightness and is right side. No fevers or chills overnight. His Alexander continues to drain bloody urine. Review of Systems 2 Review of Systems: All systems reviewed & are unremarkable except as noted in Subjective Physical Exam 2 Constitutional: WD/WN, vitals as above Neck: trachea midline, no thyromegaly Respiratory: no respiratory distress, no labored breathing and not tachypneic Auscultation: + diminished lung sounds; no crackles, no rhonchi and no wheezes Cardiovascular: RRR, no murmur, no edema Gastrointestinal (Abdomen): normal bowel sounds, soft, nontender, no hepatosplenomegaly Musculoskeletal: Extremities: extremities normal to inspection Skin: no rashes, warm and dry Neurologic: Nonfocal exam Lymphatic: no cervical lymphadenopathy Results & Data Results & Data Vital Signs (Past 12 Hours) Vital Signs Temp Pulse Pulse Resp BP BP Pulse Ox 02/12/25 07:49 36.5 C 62 18 111/64 94 02/12/25 05:51 65 02/12/25 01:59 36.7 C 69 16 122/77 93 02/11/25 22:23 36.4 C L 62 18 122/72 94 02/11/25 22:04 63 02/11/25 21:55 O2 Del Method 02/12/25 07:49 Room Air 02/12/25 05:51 02/12/25 01:59 Room Air 02/11/25 22:23 Room Air 02/11/25 22:04 02/11/25 21:55 Room Air Laboratory Results 02/12/25 07:00 02/12/25 07:00 PG Care Time/CCT Total # of Minutes Spent Total Time Spent with Patient: Total time spent is greater than 50% in coordination of care (as documented) at patient's floor/unit and/or counseling patient: Coding Level of Care Code 39395 SUB INP/OBS CARE 2/35MIN Diagnoses Pneumonia J18.9 Laterality: unspecified laterality Lung location: unspecified part of lung Pneumonia type: due to unspecified organism Adenocarcinoma of esophagus C15.9 Atrial fibrillation with RVR I48.91 Pleural effusion J90
--- NOTE | 2025-02-12 17:04 | Billing Data ---
Date of Service February 11, 2025 Coding Level of Care Code 41421 SUB INP/OBS CARE MIN
--- NOTE | 2025-02-13 06:52 | Hospitalist Progress Note ---
Date of Service February 13, 2025 Assessment & Plan (1) Pneumonia: (2) Pleural effusion: (3) Adenocarcinoma of esophagus: (4) Hematuria: (5) Atrial flutter: Plan 70yo male with PMHx esophageal carcinoma undergoing chemo and radiation, and chronic lower urinary tract obstruction (has ring) presenting with gross hematuria, shortness of breath, generalized fatigue. Was started on cefepime for presumed UTI / pneumonia, clinically improving. CT w/ oral contrast w/ no definitive communication between GI tract and pleural spaces. Pursuing thoracentesis on 02/13, holding eliquis since 02/11. Requires continued admission for continued evaluation of current illness and medical stabilization. #RLL pneumonia vs other acute process # R>L pleural effusion, new differentials including esophageal leak and pleural effusion from the leak, residual effusion from pneumonia last week, or malignant effusion from metastatic disease - initially had barium swallow orderedthis would not be able to be done for another 3 days, in discussion with radiology CT chest and abdomen with oral contrast would be just as usefulthis was ordered; if anastomotic leak noted, will need to contact [place]; if no leak, probably maintain on antibiotics for 24-48 hours and follow; low threshold for diagnostic thoracentesis versus home with close outpatient follow-up depending on his clinical progress 02/11 CT chest/abd/pelvis w/ PO contrast: no obvious anastomotic leak Pulm consulted, appreciate recs and interventions: plan to pursue US-guided diagnostic/therapeutic thoracentesis tomorrow 02/13 Continue on IV cefepime for now #Hematuria, improving - urology not concerned as long as good catheter flow - Eliquis held for thoracentesis 02/13 #?Pyelonephritis - not consistent with clinical picture, on antibiotics for possible lung infection as above. Follow clinically #Atrial fibrillation - rate controlled on amio 200mg BIDM; eliquis held as above #Adenocarcinoma, distal esophagus - unfortunately patient's most recent PT scan suggests progression of disease. Patient [place] with H[place]ology[place] [facility] [place] [facility] records show he just had 2nd round (out of 12) of adjuvant Nivolumab on 01/30/25 for distal adenocarcinoma, s/p carboplatin and paclitaxel concurrent w/ radiation therapy and [place]-Bebeto esophacectomy - ?patient tentatively scheduled to start chemotherapy 02/27 VTE ppx: on eliquis, currently held Diet: regular Admission and Anticipated Discharge Date Admission Date: February 11, 2025 Subjective Seen and evaluated this AM, feeling well. Overnight no concerns. States pulmonology saw him and plan to pursue thoracentesis 02/13, pt on board with this plan. Has been eating well, no concern using bathroom. Denies fever, chills, sweats. Physical Exam Physical Exam: Gen: no acute distress, A&Ox3 Resp: normal respiratory effort, diminished air mvmt b/l bases but otherwise clear to auscultation, no w/r/R CV: RRR, no m/r/g GI/Abd: +BS, nontender to palpation Ext: no lower extremity edema, no calf tenderness : Ring in place, urine improving in color to more clear/yellow Results & Data Results & Data Vital Signs (Past 12 Hours) Vital Signs Temp Pulse Pulse Resp BP Pulse Ox O2 Del Method 02/13/25 02:30 36.7 C 65 16 110/71 94 Room Air 02/12/25 23:21 36.8 C 68 18 117/72 93 Room Air 02/12/25 22:10 65 02/12/25 21:50 Room Air 02/12/25 19:27 36.8 C 61 18 119/71 94 Room Air (1) Pneumonia Laterality: unspecified laterality Lung location: unspecified part of lung Pneumonia type: due to unspecified organism Qualified Code(s): J18.9 - Pneumonia, unspecified organism (4) Hematuria Hematuria type: unspecified type Qualified Code(s): R31.9 - Hematuria, unspecified (5) Atrial flutter Atrial flutter type: unspecified Qualified Code(s): I48.92 - Unspecified atrial flutter
--- NOTE | 2025-02-13 11:46 | Pulmonology Progress Note ---
Date of Service February 13, 2025 Assessment & Plan (1) Pneumonia: Laterality: unspecified laterality Lung location: unspecified part of lung Pneumonia type: due to unspecified organism Qualified Code(s): J18.9 - Pneumonia, unspecified organism (2) Adenocarcinoma of esophagus: (3) Atrial fibrillation with RVR: (4) Pleural effusion: Plan Patient is a 70-year-old male with a history of atrial fibrillation on Eliquis, hyperlipidemia, adenocarcinoma of the esophagus status post esophagectomy at [facility] in November 2024 (on immunotherapy infusions monthly), LVH, GERD and BPH. The patient presented to [facility] on 02/09/2025 complaining of generalized weakness and shortness of breath with exertion. Of note the patient was recently admitted to the hospital from 01/31/2025 to 02/02/2025 with atrial fibrillation and was initiated on amiodarone and Eliquis, also noted to have bilateral infiltrates on x-ray and treated with antibiotics (doxycycline and then Augmentin). CT imaging of the abdomen pelvis on arrival showed evidence of pyelonephritis and possible pneumonia with bilateral pleural effusions (right greater than left). The patient was initiated on antibiotics with cefepime and pulmonary was consulted. Of note the patient also had a recent PET/CT on 02/07/2025 which was concerning for progression of osseous metastatic disease as well as hypermetabolic lymph nodes in the cervical, thoracic and retroperitoneal areas. Follows with oncology and the plan was to initiate systemic chemotherapy 02/27/2025. CT scan of the chest was obtained on 02/10/2025 which showed right lower lobe pneumonia and bilateral pleural effusions (right greater than left) with adjacent left lower lobe atelectasis. Problem list: Pneumonia Bilateral pleural effusions (right greater than left) Atrial fibrillation Adenocarcinoma of the esophagus Recommendations/plan: Patient remains on cefepime. MRSA nares is negative. Procalcitonin is low. Sputum culture did not grow. Patient did complete therapy recently for pneumonia with doxycycline and then Augmentin. We will proceed with thoracentesis today. Will send for full fluid analysis including cytology. Pleural effusion may be secondary to his recent right thoracotomy versus parapneumonic or malignant effusion. Eliquis is on hold for the past 48 hours, please keep this on hold until thoracentesis has been performed. Thank you for this consult. Will continue to follow along with you. Please call directly with any questions. Admission and Anticipated Discharge Date Admission Date: February 11, 2025 Subjective Patient doing well this morning during rounds. Has been off of Eliquis. Agreeable for bedside thoracentesis today. Denies significant shortness of breath, some mild chest discomfort on the right but no changes in his symptoms. Resting comfortably on room air having breakfast this morning. Review of Systems Review of Systems: Negative except as in HPI. Physical Exam Physical Exam: Physical examination: General: Well-appearing, well-nourished and not in acute distress. HEENT: Normocephalic, atraumatic. Extraocular movements intact. Sclera are nonicteric. No JVD appreciated. Skin: Warm and dry. No rashes appreciated. Cardiovascular: Heart is a regular rate and rhythm, no murmurs appreciated on my exam. No significant lower extremity edema. Lungs: Resting comfortably on room air. Diminished at bases. No wheezing. Abdomen: Nondistended. Musculoskeletal: Normal muscle mass and tone. No gross joint deformity abnormalities. No effusions appreciated. Neurologic: Awake and alert, oriented. CN II through XII are grossly intact. Speech is fluent. Nonfocal exam. Psychiatric: Appropriate cooperative during my exam. Results & Data Results & Data Vital Signs (Past 12 Hours) Vital Signs Temp Pulse Pulse Resp BP Pulse Ox O2 Del Method 02/13/25 10:17 Room Air 02/13/25 08:38 36.5 C 74 17 124/79 93 Room Air 02/13/25 07:10 60 02/13/25 02:30 36.7 C 65 16 110/71 94 Room Air PG Care Time/CCT Total # of Minutes Spent Total Time Spent with Patient: Total time spent is greater than 50% in coordination of care (as documented) at patient's floor/unit and/or counseling patient: Coding [place] [address] SUB INP/OBS CARE 2/35MIN Patient Type Established History Detailed Exam Detailed Medical Decision Making Moderate Complexity Diagnoses Pneumonia J18.9 Laterality: unspecified laterality Lung location: unspecified part of lung Pneumonia type: due to unspecified organism Adenocarcinoma of esophagus C15.9 Atrial fibrillation with RVR I48.91 Pleural effusion J90
--- NOTE | 2025-02-13 15:27 | Procedure Note ---
Procedure Note Date of Service February 13, 2025 Procedure: Diagnostic therapeutic ultrasound-guided catheter thoracentesis Inspector Cold Working: Dr. Comfort Mathur Indication: Pleural effusion Consent: Signed by patient and verified with timeout prior to procedure Anesthesia: 1% lidocaine without epinephrine local. Procedure: Consent was verified and timeout performed. Appropriate imaging studies were reviewed prior to the procedure. Patient was placed in a seated position and limited thoracic ultrasound was performed of the right chest. Appropriate site above the diaphragm for thoracentesis was selected. The skin was prepped and draped in normal sterile fashion. Lidocaine was used for local analgesia. 150 mL of yellow-pinkish fluid was aspirated via the finder needle. Finder needle was removed. Bandage was placed. Fluid was sent for labs, culture and cytology. Complications: None. Blood loss: Minimal. [facility] Procedure Codes (Charges) Pulmonary/Thoracic Procedure 1: Pulmonary and Thoracic: 21907 Thoracentesis w/o imaging Coding CPT Codes Pulmonary/Thoracic - Pulmonary and Thoracic: 46397 Thoracentesis w/o imaging ([id number]) Additional Codes Date of Service (PG.SURGERY)
--- NOTE | 2025-02-13 15:58 | XRay Report ---
XR chest 1V portable CLINICAL HISTORY: S/P Thoracentesis COMPARISON STUDY: 02/09/2025 FINDINGS: There is no pneumothorax status post thoracentesis. There is a persistent right pleural eff usion with associated right basilar atelectasis/consolidation. The right upper lung zones appear ella r. There is no overt failure. Overlying cardiac leads are evident. IMPRESSION: 1. No evidence of pneumothorax status post right-sided thoracentesis 2. Right pleural effusion with associated right basilar atelectasis/consolidation ACT 112: Negative or not required by law. Electronically signed by: Juan Booth M.D. 02/13/2025 3:57 PM
[2025-02-13 16:03] LABS: Albumin Level 3.4 gm/dl (3.4-5.0); Bilirubin,Total 0.6 mg/dl (0.2-1.0); Total Protein 7.1 gm/dl (6.0-8.3)
[2025-02-13 17:08] LABS: Appearance Pleural Fluid Cloudy; Color Pleural Fluid Amber; RBC Pleural Fluid Auto 8000 /uL; Source Pleural Fluid Right Lung; WBC Pleural Fluid Auto 2541 /uL
--- NOTE | 2025-02-13 23:32 | Hospitalist Progress Note ---
Date of Service February 13, 2025 Assessment & Plan (1) Pneumonia: (2) Adenocarcinoma of esophagus: (3) Hematuria: (4) Dyslipidemia: (5) Atrial flutter: Plan 70yo male with PMHx esophageal carcinoma undergoing chemo and radiation, and chronic lower urinary tract obstruction (has ring) presenting with gross hematuria, shortness of breath, generalized fatigue. Was started on cefepime for presumed UTI / pneumonia, clinically improving. Undergoing CT with oral contrast to investigate for anastomosis between GI tract and R pleural space. Requires continued admission for continued evaluation of current illness and medical stabilization. #RLL pneumonia # R>L pleural effusion, new differentials including esophageal leak and pleural effusion from the leak, residual effusion from pneumonia last week, or malignant effusion from metastatic disease - initially had barium swallow orderedthis would not be able to be done for another 3 days, in discussion with radiology CT chest and abdomen with oral contrast would be just as usefulthis was ordered; if anastomotic leak noted, consulted pulm. will obtain athoracocenthesis today. Will await study. deending on results, may discharge patient vs chest tube. Continue on IV cefepime for now #Hematuria, improving - urology not concerned as long as good catheter flow - Eliquis has been resumed, maintain Ring drainage #?Pyelonephritis - not consistent with clinical picture, on antibiotics for possible lung infection as above. Follow clinically #Atrial fibrillation - rate controlled on amio 200mg BIDM, back on eliquis #Adenocarcinoma, distal esophagus - unfortunately patient's most recent PT scan suggests progression of disease. Patient follows with Hematology/Oncology at [facility] records show he just had 2nd round (out of 12) of adjuvant Nivolumab on 01/30/25 for distal adenocarcinoma, s/p carboplatin and paclitaxel concurrent w/ radiation therapy and [place]-Bebeto esophacectomy - ?patient tentatively scheduled to start chemotherapy 02/27 Admission and Anticipated Discharge Date Admission Date: February 11, 2025 Subjective Patient reports feeling well. He has no new complaints Physical Exam Physical Exam: Gen: no acute distress, A&Ox3 Resp: normal respiratory effort, diminished air mvmt b/l bases but otherwise clear to auscultation, no w/r/R CV: RRR, no m/r/g GI/Abd: +BS, nontender to palpation Ext: no lower extremity edema, no calf tenderness : Ring in place, urine improving in color to more clear/yellow Results & Data Results & Data Vital Signs (Past 12 Hours) Vital Signs Temp Pulse Pulse Resp BP BP Pulse Ox 02/13/25 22:23 63 02/13/25 19:45 36.5 C 72 18 114/77 96 02/13/25 19:30 02/13/25 16:28 36.4 C L 66 17 104/66 96 02/13/25 15:03 72 02/13/25 11:58 36.5 C 81 17 98/67 L 95 O2 Del Method 02/13/25 22:23 02/13/25 19:45 Room Air 02/13/25 19:30 Room Air 02/13/25 16:28 Room Air 02/13/25 15:03 02/13/25 11:58 Room Air PG Care Time/CCT Total # of Minutes Spent Total Time Spent with Patient: Total time spent is greater than 50% in coordination of care (as documented) at patient's floor/unit and/or counseling patient: Coding Level of Care Code 52523 SUB INP/OBS CARE 3/50MIN Diagnoses Pneumonia J18.9 Laterality: unspecified laterality Lung location: unspecified part of lung Pneumonia type: due to unspecified organism Adenocarcinoma of esophagus C15.9 Hematuria R31.9 Hematuria type: unspecified type Dyslipidemia E78.5 Atrial flutter, unspecified type I48.92 Atrial flutter type: unspecified (1) Pneumonia Laterality: unspecified laterality Lung location: unspecified part of lung Pneumonia type: due to unspecified organism Qualified Code(s): J18.9 - Pneumonia, unspecified organism (3) Hematuria Hematuria type: unspecified type Qualified Code(s): R31.9 - Hematuria, unspecified (5) Atrial flutter Atrial flutter type: unspecified Qualified Code(s): I48.92 - Unspecified atrial flutter
[2025-02-14 07:02] LABS: Eosinophils, Fluid 1 %; Lymphocytes, Fluid 57 %; Mono,Macrophage,Mesothelial 30 %; Neutrophils, Fluid 12 %
--- NOTE | 2025-02-14 09:59 | Pulmonology Progress Note ---
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 The patient presented to [facility] on 02/09/2025 complaining of generalized weakness and shortness of breath with exertion. Of note the patient was recently admitted to the hospital from 01/31/2025 to 02/02/2025 with atrial fibrillation and was initiated on amiodarone and Eliquis, also noted to have bilateral infiltrates on x-ray and treated with antibiotics (doxycycline and then Augmentin). CT imaging of the abdomen pelvis on arrival showed evidence of pyelonephritis and possible pneumonia with bilateral pleural effusions (right greater than left). The patient was initiated on antibiotics with cefepime and pulmonary was consulted. Of note the patient also had a recent PET/CT on 02/07/2025 which was concerning for progression of osseous metastatic disease as well as hypermetabolic lymph nodes in the cervical, thoracic and retroperitoneal areas. Follows with oncology and the plan was to initiate systemic chemotherapy 02/27/2025. CT scan of the chest was obtained on 02/10/2025 which showed right lower lobe pneumonia and bilateral pleural effusions (right greater than left) with adjacent left lower lobe atelectasis. Thoracentesis 02/13/2025 with 150 cc of yellow/pink fluid, 12% neutrophils, 57% lymphocytes, pH 7.36, protein 4.5, LDH 447, glucose 27, amylase 13. Many WBCs on Gram stain, no organisms seen. Culture pending. Cytology pending. Postprocedural x-ray on 02/13/2025 with persistent right sided pleural effusion. MRSA nares is negative. Procalcitonin is low. Sputum culture did not grow. Problem list: Pneumonia Bilateral pleural effusions (right greater than left) Atrial fibrillation Adenocarcinoma of the esophagus Recommendations/plan: Patient remains on cefepime. Eliquis is on hold. Thoracentesis showing exudative fluid with low glucose. Predominantly lymphocytes. Given the low glucose of the pleural fluid I think that chest tube insertion is indicated for complete drainage. Will perform bedside ultrasound today to determine if there is an adequate pocket for bedside drainage otherwise would need IR pigtail catheter insertion. If there is minimal fluid present on ultrasound then could just continue antibiotics, would need a 2-week course and repeat imaging. Continue antibiotics. Please keep Eliquis on hold for now. Thank you for this consult. Will continue to follow along with you. Please call directly with any questions. Admission and Anticipated Discharge Date Admission Date: February 11, 2025 Subjective Patient is doing well this morning. No chest pain after thoracentesis yesterday. No fevers overnight. He is on room air. Feels as though he can get a better breath of air. Review of Systems Review of Systems: Negative except as in HPI. Physical Exam Physical Exam: Physical examination: General: Well-appearing, well-nourished and not in acute distress. HEENT: Normocephalic, atraumatic. Extraocular movements intact. Sclera are nonicteric. No JVD appreciated. Skin: Warm and dry. No rashes appreciated. Cardiovascular: Heart is a regular rate and rhythm, no murmurs appreciated on my exam. No significant lower extremity edema. Lungs: Resting comfortably on room air. Diminished at right base. No wheezing. Abdomen: Nondistended. Musculoskeletal: Normal muscle mass and tone. No gross joint deformity abnormalities. No effusions appreciated. Neurologic: Awake and alert, oriented. CN II through XII are grossly intact. S peech is fluent. Nonfocal exam. Psychiatric: Appropriate cooperative during my exam. Results & Data Results & Data Vital Signs (Past 12 Hours) Vital Signs Temp Pulse Pulse Resp BP Pulse Ox O2 Del Method 02/14/25 08:45 36.7 C 68 17 133/78 93 Room Air 02/14/25 04:00 37.0 C 64 18 122/73 94 Room Air 02/13/25 23:32 36.5 C 59 L 18 122/73 96 Room Air 02/13/25 22:23 63 PG Care Time/CCT Total # of Minutes Spent Total Time Spent with Patient: Total time spent is greater than 50% in coordination of care (as documented) at patient's floor/unit and/or counseling patient: Coding [place] [address] SUB INP/OBS CARE 235MIN Patient Type Established History Detailed Exam Detailed Medical Decision Making Moderate Complexity Diagnoses Pneumonia J18.9 Laterality: unspecified laterality Lung location: unspecified part of lung Pneumonia type: due to unspecified organism Adenocarcinoma of esophagus C15.9 Atrial fibrillation with RVR I48.91 Pleural effusion J90
--- NOTE | 2025-02-14 11:11 | Billing Data ---
Date of Service February 12, 2025 Coding Level of Care Code 31921 INT INP/OBS CARE
--- NOTE | 2025-02-14 13:30 | Procedure Note ---
Procedure Note Date of Service February 14, 2025 Procedure: Pigtail chest tube insertion Tabulating Machine Mechanic: Dr. Comfort Mathur Indication: Pleural effusion Consent: Signed by patient and verified with timeout prior to procedure Anesthesia: 1% lidocaine without epinephrine local Procedure: Consent was verified and timeout performed. Appropriate imaging studies were reviewed prior to the procedure. Patient was placed in a seated position. Appropriate site above the diaphragm was selected with the help of Ultrasound on the right posterior chest wall. The skin was prepped and draped in normal sterile fashion. Lidocaine was used for local analgesia. 10 ml was aspirated via the finder needle. Guidewire was introduced through the needle and needle was removed. Small skin incision was made adjacent to the guidewire. Dilator was introduced over the guidewire through the skin incision and into the pleural space. Dilator was removed. A 14 Mongolian pigtail chest tube was inserted into the pleural space over the guidewire. Guidewire was removed and chest tube was capped. Chest tube was sutured in place, occlusive and transparent dressing were placed over the chest tube. Chest tube then was connected to the Pleur-evac. Chest tube was opened and yellow clear fluid drained. Postprocedure x-ray has been ordered. Chest tube will be hooked to wall suction with -20 cm water. No airleak appreciated from chest tube. The patient tolerated the procedure without obvious complication Complications: None Blood loss: Less than 2 cc. [facility] [place] Procedure Codes (Charges) Pulmonary/Thoracic Procedure 1: Pulmonary and Thoracic: 35957 Pleural drainage w/o imaging Coding CPT Codes Pulmonary/Thoracic - Pulmonary and Thoracic: 14366 Pleural drainage w/o imaging ([id number]) Additional Codes Date of Service (PG.SURGERY)
--- NOTE | 2025-02-14 13:46 | XRay Report ---
XR chest 1V portable CLINICAL HISTORY: chest tube insertion COMPARISON STUDY: 02/13/2025 FINDINGS: The cardiac and mediastinal contours remain stable. There is been interval placement of a r ight basilar chest tube. There is a right apical pneumothorax with pleural separation of 12 mm. There are progressive right lower lobe airspace opacities. There is slight decrease in the volume of the right pleural effusion. Bilateral interstitial thickening persists. IMPRESSION: 1. Interval placement of a right-sided pigtail pleural catheter 2. Interval development of a small right apical pneumothorax 3. Worsening right basilar airspace opacities 4. Small right pleural effusion ACT 112: Negative or not required by law. Electronically signed by: Juan Booth M.D. 02/14/2025 1:45 PM
--- NOTE | 2025-02-14 22:22 | Hospitalist Progress Note ---
Date of Service February 14, 2025 Assessment & Plan (1) Pneumonia: (2) Adenocarcinoma of esophagus: (3) Hematuria: (4) Dyslipidemia: (5) Atrial flutter: Plan 70yo male with PMHx esophageal carcinoma undergoing chemo and radiation, and chronic lower urinary tract obstruction (has ring) presenting with gross hematuria, shortness of breath, generalized fatigue. Was started on cefepime for presumed UTI / pneumonia, clinically improving. Undergoing CT with oral contrast to investigate for anastomosis between GI tract and R pleural space. Requires continued admission for continued evaluation of current illness and medical stabilization. #RLL pneumonia # R>L pleural effusion, new differentials including esophageal leak and pleural effusion from the leak, residual effusion from pneumonia last week, or malignant effusion from metastatic disease - initially had barium swallow orderedthis would not be able to be done for another 3 days, in discussion with radiology CT chest and abdomen with oral contrast would be just as usefulthis was ordered; if anastomotic leak noted, consulted pulm. Thoracocentesis on 02/[address] chest tube on 02/14 -Patient with pain when lying down but only 4/10 pain when sitting up. -Placed a one time dose of oxycodone, with tylenol scheduled. Continue on IV cefepime for now #Hematuria, improving - urology not concerned as long as good catheter flow - Eliquis has been resumed, maintain Ring drainage #?Pyelonephritis - not consistent with clinical picture, on antibiotics for possible lung infection as above. Follow clinically #Atrial fibrillation - rate controlled on amio 200mg BIDM, back on eliquis #Adenocarcinoma, distal esophagus - unfortunately patient's most recent PT scan suggests progression of disease. Patient follows with Hematology/Oncology at [facility] records show he just had 2nd round (out of 12) of adjuvant Nivolumab on 01/30/25 for distal adenocarcinoma, s/p carboplatin and paclitaxel concurrent w/ radiation therapy and Matt-Bebeto esophacectomy - ?patient tentatively scheduled to start chemotherapy 02/27 Admission and Anticipated Discharge Date Admission Date: February 11, 2025 Subjective Patient complaining of pain after chest tube placement. He is encouraged however bu the amount of fluid removed. Physical Exam Physical Exam: Gen: no acute distress, A&Ox3 Resp: normal respiratory effort, diminished air mvmt b/l bases but otherwise clear to auscultation, no w/r/R; chest tube noted CV: RRR, no m/r/g GI/Abd: +BS, nontender to palpation Ext: no lower extremity edema, no calf tenderness : Ring in place, urine improving in color to more clear/yellow Results & Data Results & Data Vital Signs (Past 12 Hours) Vital Signs Temp Pulse Pulse Resp BP BP Pulse Ox 02/14/25 19:30 36.7 C 78 18 101/65 93 02/14/25 15:33 36.5 C 56 L 17 108/68 94 02/14/25 15:19 02/14/25 12:15 36.8 C 68 18 117/68 95 02/14/25 12:00 73 O2 Del Method 02/14/25 19:30 Room Air 02/14/25 15:33 Room Air 02/14/25 15:19 Room Air 02/14/25 12:15 Room Air 02/14/25 12:00 PG Care Time/CCT Total # of Minutes Spent Total Time Spent with Patient: Total time spent is greater than 50% in coordination of care (as documented) at patient's floor/unit and/or counseling patient: Coding Level of Care Code 55705 SUB INP/OBS CARE 3/50MIN Diagnoses Pneumonia J18.9 Laterality: unspecified laterality Lung location: unspecified part of lung Pneumonia type: due to unspecified organism Adenocarcinoma of esophagus C15.9 Hematuria R31.9 Hematuria type: unspecified type Dyslipidemia E78.5 Atrial flutter, unspecified type I48.92 Atrial flutter type: unspecified (1) Pneumonia Laterality: unspecified laterality Lung location: unspecified part of lung P neumonia type: due to unspecified organism Qualified Code(s): J18.9 - Pneumonia, unspecified organism (3) Hematuria Hematuria type: unspecified type Qualified Code(s): R31.9 - Hematuria, unspecified (5) Atrial flutter Atrial flutter type: unspecified Qualified Code(s): I48.92 - Unspecified atrial flutter
[2025-02-14] MEDS: ACETAMINOPHEN 325 MG TAB PO SCH (22:34)
--- NOTE | 2025-02-15 07:30 | Hospitalist Progress Note ---
Date of Service February 15, 2025 Assessment & Plan (1) Pneumonia: (2) Adenocarcinoma of esophagus: (3) Hematuria: (4) Dyslipidemia: (5) Atrial flutter: Plan 70yo male with PMHx esophageal carcinoma undergoing chemo and radiation, and chronic lower urinary tract obstruction (has ring) presenting with gross hematuria, shortness of breath, generalized fatigue. treated of HAP and d/c from hospital 02/02 to complete outpt course. Was started on cefepime for presumed UTI / pneumonia, clinically improving. CT with oral contrast was negative for anastomosis between GI tract and R pleural space. Requires continued admission for chest tube drainage of right sided pleural effusion Ring catheter management for gross hematuria and manipulation of anticoagulation #RLL pneumonia # R>L pleural effusion, new - initially had barium swallow orderedunable to be performed in a timely manner, CT chest and abdomen with oral contrast not suggest any communication between GI tract and pulmonary space. Pulmonary consult performed Thoracocentesis on 02/13 concern for exudative effusion, cultures negative, chest tube on 02/14, xray 02/15 with reduced effusion Patient's pain is improved. -Placed a one time dose of oxycodone, with tylenol scheduled. Continue on IV cefepime transition to cefdinir in a.m. of onsider last dose possibly 02/23/2025 #Hematuria, improving, chronic indwelling ring catheter - urology not concerned as long as good catheter flow - Eliquis will be resumed if gross hematuria continues to be resolved #Pyelonephritis- ruled out - not consistent with clinical picture, on antibiotics for possible lung infection as above. Follow clinically patient has gross hematuria #Atrial fibrillation - rate controlled on amio 200mg BIDM, will consider to restart eliquis in a.m. of 02/16 if no further gross hematuria #Adenocarcinoma, distal esophagus, osseous metastatic disease- unfortunately patient's most recent PET scan suggests progression of disease. Patient follows with Hematology/Oncology at [facility] records show he just had 2nd round (out of 12) of adjuvant Nivolumab on 01/30/25 for distal adenocarcinoma, s/p carboplatin and paclitaxel concurrent w/ radiation therapy and Matt-Bebeto esophagectomy -next treatment of chemotherapy scheduled for 02/27 Complex decision making evaluation of infectious disease, malignancies impact on his lung disease, hematuria and impact of anticoagulation for his atrial fibrillation regarding the gross hematuria. Admission and Anticipated Discharge Date Admission Date: February 11, 2025 Subjective Patient is doing well status post chest tube placement. He is obviously concerned about coordination of his upcoming cancer therapy and urology visits to continue to address his Ring catheter. Hematuria has improved or cleared w ith holding his anticoagulation and he feels he is breathing better with thoracentesis chest tube placement Physical Exam Physical Exam: Pleasant gentleman in no particular distress does have a Ring and a chest tube in place. Lungs are with good air movement he has some discomfort at the chest tube site and diminished breath sounds at that base. Ring is draining a clear jaky fluid at this time Results & Data Results & Data Vital Signs (Past 12 Hours) Vital Signs Temp Pulse Pulse Resp BP BP Pulse Ox 02/15/25 04:00 97.9 F 58 L 18 110/69 95 02/15/25 00:08 02/14/25 23:06 97.9 F 63 18 118/75 95 02/14/25 22:06 66 02/14/25 19:30 98.1 F 78 18 101/65 93 O2 Del Method 02/15/25 04:00 Room Air 02/15/25 00:08 Room Air 02/14/25 23:06 Room Air 02/14/25 22:06 02/14/25 19:30 Room Air Laboratory Results Reviewed CBC hemoglobin 12.8 Reviewed CRP 3.30 (patient does have malignancy) PG Care Time/CCT Total # of Minutes Spent Total Time Spent with Patient: Total time spent is greater than 50% in coordination of care (as documented) at patient's floor/unit and/or counseling patient: Coding Level of Care Code 82567 SUB INP/OBS CARE 3/50MIN Diagnoses Pneumonia J18.9 Laterality: unspecified laterality Lung location: unspecified part of lung Pneumonia type: due to unspecified organism Adenocarcinoma of esophagus C15.9 Hematuria R31.9 Hematuria type: unspecified type Dyslipidemia E78.5 Atrial flutter, unspecified type I48.92 Atrial flutter type: unspecified (1) Pneumonia Laterality: unspecified laterality Lung location: unspecified part of lung Pneumonia type: due to unspecified organism Qualified Code(s): J18.9 - Pneumonia, unspecified organism (3) Hematuria Hematuria type: unspecified type Qualified Code(s): R31.9 - Hematuria, unspecified (5) Atrial flutter Atrial flutter type: unspecified Qualified Code(s): I48.92 - Unspecified atrial flutter
[2025-02-15 07:38] LABS: Hematocrit (blood only) 36.6 % (42.0-52.0); Hemoglobin 12.8 g/dL (14.0-18.0); Mean Corpuscular Hemoglobin 31.8 pg (25.0-34.0); Mean Corpuscular Volume 90.8 fL (80.0-100.0); Platelet Count 186 K/uL (130-400); RDW Standard Deviation 47.4 fL (36.4-46.3); Red Blood Count 4.03 M/uL (4.70-6.10); White Blood Count 6.52 K/ul (4.8-10.8)
[2025-02-15 08:10] LABS: Anion Gap 8.0 (3-11); Blood Urea Nitrogen 17.0 mg/dl (6-23); Calcium 8.9 mg/dl (8.6-10.3); Carbon Dioxide 22.0 mmol/L (21-32); Chloride 105.0 mmol/L (98-107); Creatinine Clr Calc Pharmacy 104.0 ml/min; Glucose 102.0 mg/dl (70-99(Fasting)); Potassium 3.9 mmol/L (3.5-5.1); Sodium 135.0 mmol/L (136-145)
--- NOTE | 2025-02-15 08:33 | XRay Report ---
EXAM: XR chest 1V portable CLINICAL HISTORY: chest tube TECHNIQUE: An X-ray image of the chest was obtained in AP projection. COMPARISON: Comparison is made with prior portable chest X-ray dated 02/13/2025. FINDINGS: Interval placement of right-sided chest tube with tip in lower zone. EKG leads are seen superimposed on the chest and upper abdomen. Pulmonary Parenchyma: Interval improvement in right pleural effusion with minimal blunting of CP angle. Mild regression of ill-defined haziness in right lower zone and unchanged haziness in left lower zone. No discrete pleuropulmonary nodularity is detected on either side. Slight obscuration of the left costophrenic angle is also redemonstrated, possibly minimal pleural effusion/thickening (unchanged). Heart and Mediastinum: Heart size and shape are normal. No mediastinal widening. No hilar lymphadenopathy is seen. Bony Thorax: Degenerative changes are identified involving the visualized right acromioclavicular joint. The bony thorax appears intact without definite evidence of fractures. Soft Tissues: Soft tissues overlying the chest wall appear unremarkable. IMPRESSION: 1. Interval placement of right-sided chest tube with tip in lower zone. 2. Interval improvement in right pleural effusion with minimal blunting of CP angle. 3. Mild regression of ill-defined haziness in right lower zone and unchanged haziness in left lower zone. 4. Slight obscuration of the left costophrenic angle, possibly minimal pleural effusion/thickening (unchanged). 5. Clinical correlation is suggested. Electronically signed by Moses Gay 02-15-2025 08:32 AM
[2025-02-15] MEDS: CEFEPIME 2000MG 2,000 MG/20 ML SYR IV SCH (08:53)
--- NOTE | 2025-02-15 09:00 | Pulmonology Progress Note ---
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 The patient presented to [facility] on 02/09/2025 complaining of generalized weakness and shortness of breath with exertion. Of note the patient was recently admitted to the hospital from 01/31/2025 to 02/02/2025 with atrial fibrillation and was initiated on amiodarone and Eliquis, also noted to have bilateral infiltrates on x-ray and treated with antibiotics (doxycycline and then Augmentin). CT imaging of the abdomen pelvis on arrival showed evidence of pyelonephritis and possible pneumonia with bilateral pleural effusions (right greater than left). The patient was initiated on antibiotics with cefepime and pulmonary was consulted. Of note the patient also had a recent PET/CT on 02/07/2025 which was concerning for progression of osseous metastatic disease as well as hypermetabolic lymph nodes in the cervical, thoracic and retroperitoneal areas. Follows with oncology and the plan was to initiate systemic chemotherapy 02/27/2025. CT scan of the chest was obtained on 02/10/2025 which showed right lower lobe pneumonia and bilateral pleural effusions (right greater than left) with adjacent left lower lobe atelectasis. Thoracentesis 02/13/2025 with 150 cc of yellow/pink fluid, 12% neutrophils, 57% lymphocytes, pH 7.36, protein 4.5, LDH 447, glucose 27, amylase 13. Many WBCs on Gram stain, no organisms seen. Culture no growth to date. Cytology pending. MRSA nares is negative. Procalcitonin is low. Sputum culture did not grow. Right sided 12 [place] pigtail catheter placement 02/14/2025. Problem list: Pneumonia Bilateral pleural effusions (right greater than left) Atrial fibrillation Adenocarcinoma of the esophagus Recommendations/plan: Patient remains on cefepime. Eliquis is on hold. Thoracentesis showing exudative fluid with low glucose. Predominantly lymphocytes. Given the low glucose of the pleural fluid I think that chest tube insertion is indicated for complete drainage. Chest tube was inserted yesterday. Will continue chest tube. Keep to suction. Monitor output. Repeat chest x-ray in the morning. Will likely repeat CT scan prior to discontinuation of chest tube. Continue antibiotics. Can de-escalate likely to Rocephin 2 g daily or Augmentin. Will likely need a total of 2 weeks of therapy. Can resume Eliquis. Thank you for this consult. Will continue to follow along with you. Please call directly with any questions. Admission and Anticipated Discharge Date Admission Date: February 11, 2025 Subjective Status post pigtail catheter placement yesterday. Patient has drained a total of 760 cc from chest tube. Chest x-ray shows an interval improvement in the size of the pleural effusion. Patient remains afebrile. On room air. Overall he is feeling well. He denies any chest pain. Has been up ambulating is much as possible. No airleak from chest tube. Fluid is yellow and slightly hazy. Review of Systems Review of Systems: Negative except as in HPI. Physical Exam Physical Exam: Physical examination: General: Well-appearing, well-nourished and not in acute distress. HEENT: Normocephalic, atraumatic. Extraocular movements intact. Sclera are nonicteric. No JVD appreciated. Skin: Warm and dry. No rashes appreciated. Cardiovascular: Heart is a regular rate and rhythm, no murmurs appreciated on my exam. No significant lower extremity edema. Lungs: Resting comfortably on room air. No wheezing. Right chest tube in place, to suction, no airleak. Abdomen: Nondistended. Musculoskeletal: Normal muscle mass and tone. No gross joint deformity abnormalities. No effusions appreciated. Neurologic: Awake and alert, oriented. CN II through XII are grossly intact. Speech is fluent. Nonfocal exam. Psychiatric: Appropriate cooperative during my exam. Results & Data Results & Data Vital Signs (Past 12 Hours) Vital Signs Temp Pulse Pulse Resp BP BP Pulse Ox 02/15/25 08:31 36.3 C L 77 18 102/67 96 02/15/25 04:00 36.6 C 58 L 18 110/69 95 02/15/25 00:08 02/14/25 23:06 36.6 C 63 18 118/75 95 02/14/25 22:06 66 O2 Del Method 02/15/25 08:31 Room Air 02/15/25 04:00 Room Air 02/15/25 00:08 Room Air 02/14/25 23:06 Room Air 02/14/25 22:06 Diagnostic Findings I personally reviewed the chest x-rays. Patient did have a small amount of air introduced into the thoracic cavity during chest tube insertion yesterday and had a small pneumothorax afterwards. This seems to have resolved. Pleural effusion is improving. PG Care Time/CCT Total # of Minutes Spent Total Time Spent with Patient: Total time spent is greater than 50% in coordination of care (as documented) at patient's floor/unit and/or counseling patient: [place] [address] SUB INP/OBS CARE 2/35MIN Patient Type Established History Detailed Exam Detailed Medical Decision Making Moderate Complexity Diagnoses Pneumonia J18.9 Laterality: unspecified laterality Lung location: unspecified part of lung Pneumonia type: due to unspecified organism Adenocarcinoma of esophagus C15.9 Atrial fibrillation with RVR I48.91 Pleural effusion J90
[2025-02-16 07:57] VITALS: RESP 18
[2025-02-16] MEDS: CEFDINIR 300 MG CAP PO SCH (08:06)
--- NOTE | 2025-02-16 08:27 | XRay Report ---
EXAM: XR chest 1V portable CLINICAL HISTORY: f/u effusion. TECHNIQUE: An X-ray image of the chest was obtained in AP projection. COMPARISON: 02/15/2025 X-ray. FINDINGS: Lines / Tubes: Right-sided chest tube is noted in situ, with the tip projecting over the lower right hemithorax (unchanged). Pulmonary Parenchyma: Mild blunting of the right costophrenic angle remains unchanged, consistent with a small pleural effusion. The left costophrenic angle continues to appear partially obscured, likely representing minimal unchanged effusion or pleural thickening. Bilateral lower lung hazy opacities (more on the right side) persist without significant interval change. Heart and Mediastinum: Heart size and shape are normal. No mediastinal widening or masses. No hilar or mediastinal lymphadenopathy. Bony Thorax: There are degenerative changes of the acromioclavicular joints. The bony thorax appears intact without fractures or deformities. Soft Tissues: Soft tissues overlying the chest wall are unremarkable. IMPRESSION: 1. Right-sided chest tube in situ, tip in the lower right hemithorax (unchanged). 2. Pulmonary parenchymal lower zones' faint opacities remain unchanged, with no significant interval change. 3. Unchanged blunting of both costophrenic angles, right more than left, consistent with small effusions. Electronically signed by Moses Gay 02-16-2025 08:26 AM
--- NOTE | 2025-02-16 10:42 | Pulmonology Progress Note ---
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 The patient presented to [facility] on 02/09/2025 complaining of generalized weakness and shortness of breath with exertion. Of note the patient was recently admitted to the hospital from 01/31/2025 to 02/02/2025 with atrial fibrillation and was initiated on amiodarone and Eliquis, also noted to have bilateral infiltrates on x-ray and treated with antibiotics (doxycycline and then Augmentin). CT imaging of the abdomen pelvis on arrival showed evidence of pyelonephritis and possible pneumonia with bilateral pleural effusions (right greater than left). The patient was initiated on antibiotics with cefepime and pulmonary was consulted. Of note the patient also had a recent PET/CT on 02/07/2025 which was concerning for progression of osseous metastatic disease as well as hypermetabolic lymph nodes in the cervical, thoracic and retroperitoneal areas. Follows with oncology and the plan was to initiate systemic chemotherapy 02/27/2025. CT scan of the chest was obtained on 02/10/2025 which showed right lower lobe pneumonia and bilateral pleural effusions (right greater than left) with adjacent left lower lobe atelectasis. Thoracentesis 02/13/2025 with 150 cc of yellow/pink fluid, 12% neutrophils, 57% lymphocytes, pH 7.36, protein 4.5, LDH 447, glucose 27, amylase 13. Many WBCs on Gram stain, no organisms seen. Culture no growth to date. - Pleural fluid cytology showing metastatic adenocarcinoma consistent with metastatic adenocarcinoma of esophageal origin. MRSA nares is negative. Procalcitonin is low. Sputum culture did not grow. Right sided 12 [place] pigtail catheter placement 02/14/2025, drained ~800 cc, discontinued on 02/16/25. Problem list: Pneumonia Bilateral pleural effusions (right greater than left) Malignant right pleural effusion Atrial fibrillation Adenocarcinoma of the esophagus Recommendations/plan: Pleural effusion cytology with malignant cells, adenocarcinoma esophageal origin. Chest tube drained only 70 cc, chest x-ray improved. Chest tube was removed at bedside this morning. X-ray is pending. Concern was for parapneumonic effusion with low glucose however this can also be seen in a subset of malignant pleural effusions. Cultures are still negative from fluid. Patient has been on antibiotics, can complete 5 to 7 days of therapy. Can resume Eliquis. Patient follows with oncology at [place], sees Dr. Rao. I spoke with him today and updated him on the pleural fluid cytology. He will communicate with patient and follow-up on the of this month. From a pulmonary standpoint the patient may be discharged to home with appropriate oncologic and primary care follow-up. Primary hospitalist was updated on plan of care. Thank you for this consult. Pulmonary will sign off. Please call directly with any questions. Admission and Anticipated Discharge Date Admission Date: February 11, 2025 Subjective Patient seen and examined this morning. Feeling well this morning. No shortness of breath. No fevers or chills. is at bedside. I discussed the results of his pleural fluid having malignant cells. They are tearful and concerned. Minimal output from chest tube overnight. X-ray is improved. Chest tube was removed at bedside this morning. Occlusive and transparent dressing was placed. Review of Systems Review of Systems: Negative except as in HPI. Physical Exam Physical Exam: Physical examination: General: Well-appearing, well-nourished and not in acute distress. HEENT: Normocephalic, atraumatic. Extraocular movements intact. Sclera are nonicteric. No JVD appreciated. Skin: Warm and dry. No rashes appreciated. Cardiovascular: Heart is a regular rate and rhythm, no murmurs appreciated on my exam. No significant lower extremity edema. Lungs: Resting comfortably on room air. No wheezing. Minimal output from chest tube overnight, removed at bedside. Occlusive and transparent dressing placed. Abdomen: Nondistended. Musculoskeletal: Normal muscle mass and tone. No gross joint deformity abnormalities. No effusions appreciated. Neurologic: Awake and alert, oriented. CN II through XII are grossly intact. Speech is fluent. Nonfocal exam. Psychiatric: Appropriate cooperative during my exam. Results & Data Results & Data Vital Signs (Past 12 Hours) Vital Signs Temp Pulse Resp BP Pulse Ox O2 Del Method 02/16/25 08:00 Room Air 02/16/25 07:56 36.9 C 66 18 115/74 96 Room Air 02/16/25 02:56 36.6 C 63 16 116/75 94 Room Air PG Care Time/CCT Total # of Minutes Spent Total Time Spent with Patient: Total time spent is greater than 50% in coordination of care (as documented) at patient's floor/unit and/or counseling patient: [place] [address] SUB INP/OBS CARE 2/35MIN Patient Type Established History Detailed Exam Detailed Medical Decision Making Moderate Complexity Diagnoses Pneumonia J18.9 Laterality: unspecified laterality Lung location: unspecified part of lung Pneumonia type: due to unspecified organism Adenocarcinoma of esophagus C15.9 Atrial fibrillation with RVR I48.91 Malignant pleural effusion J91.0
--- NOTE | 2025-02-16 11:13 | XRay Report ---
XR chest 1V portable HISTORY: 70 years-old Male f/u acute shortness of breath COMPARISON: Chest 02/17/2024, chest CT 02/11/2025. TECHNIQUE: AP view of the chest FINDINGS: Cardiomediastinal and hilar silhouettes are unchanged. Mild chronic appearing interstitial coarsening again noted along with ill-defined perihilar and right infrahilar opacities. No pneumothorax. Status post removal of the right basilar pleural catheter. Right hemidiaphragm elevation with blunting of t he costophrenic angles again noted. Bones appear grossly intact. IMPRESSION: 1. Status post removal of the right basilar pleural catheter. 2. No definite pneumothorax identified. 3. Unchanged blunting of the costophrenic angles with right hemidiaphragmatic elevation and right bas ilar opacities. ACT 112: Negative or not required by law. The above report was generated using voice recognition software. It may contain grammatical, syntax o r spelling errors. Electronically signed by: Mikey Dodson M.D. 02/16/2025 11:11 AM
[2025-02-16 11:39] VITALS: TEMP 97.9; O2SAT 95
[2025-02-16 12:14] VITALS: BP 112/71
[2025-02-16 14:08] VITALS: PULSE 76
--- NOTE | 2025-02-16 17:45 | Discharge Summary ---
Discharge Summary Date of Service February 16, 2025 Principal Dx & Hospital Course #1 = Principal Diagnosis (1) Pneumonia: (2) Adenocarcinoma of esophagus: (3) Hematuria: (4) Dyslipidemia: (5) Atrial flutter: Plan 70yo male with PMHx esophageal carcinoma undergoing chemo and radiation, and chronic lower urinary tract obstruction (has ring) presenting with gross hematuria, shortness of breath, generalized fatigue. treated of HAP and d/c from hospital 02/02 to complete outpt course. Was started on cefepime for presumed UTI / pneumonia, clinically improving. CT with oral contrast was negative for anastomosis between GI tract and R pleural space. Requires continued admission for chest tube drainage of right sided pleural effusion Ring catheter management for gross hematuria and manipulation of anticoagulation #RLL pneumonia # R>L pleural effusion, new - initially had barium swallow orderedunable to be performed in a timely manner, CT chest and abdomen with oral contrast not suggest any communication between GI tract and pulmonary space. Pulmonary consult performed Thoracocentesis on 02/13 concern for exudative effusion, cultures negative, chest tube on 02/14, xray 02/15 with reduced effusion cytology concerning for malignant effusion, Dr Mathur notified oncology Patient's pain is improved. dc with small supply home oxycodone, discussed antidepressant but will discuss with pcp Continue on IV cefepime transition to cefdinir in a.m. of hort course after discharge with now concern for malignant effusion rather than empyema #Hematuria, improving, chronic indwelling ring catheter - urology not concerned as long as good catheter flow - Eliquis will be resumed , pt given instructions regading if gross hematuria returns #Pyelonephritis- ruled out - not consistent with clinical picture, on antibiotics for possible lung infection as above. Follow clinically patient has gross hematuria #Atrial fibrillation - rate controlled on amio 200mg BIDM, eliquis #Adenocarcinoma, distal esophagus, osseous metastatic disease- unfortunately patient's most recent PET scan suggests progression of disease. Patient follows with Hematology/Oncology at [facility] records show he just had 2nd round (out of 12) of adjuvant Nivolumab on 01/30/25 for distal adenocarcinoma, s/p carboplatin and paclitaxel concurrent w/ radiation therapy and [place] esophagectomy -next treatment of chemotherapy scheduled for 02/27 Complex decision making evaluation of infectious disease, malignancies impact on his lung disease, hematuria and impact of anticoagulation for his atrial fibrillation regarding the gross hematuria. Notes For Next Care Provider pt wished to discuss antianxiety meds concern for removal of ring cath, continue to coordinate changes continue followup with onc and urology Admission HPI Per Admitting Provider Justyn Monroy is a pleasant 70yo male with history of adenocarcinoma of the esophagus s/p esophagectomy in November 2024. He is on immunotherapy and follows with Hematology/Oncology at [facility]. Patient with recent hospitalization from 01/31 - 02/02/25 after presenting with palpitations and chest heaviness. He was found to be in atrial fibrillation and to have bilateral PNA. He was treated with antibiotics and started on Amiodarone as well as Apixaban for anticoagulation. Patient has been compliant with his new medications - reports he completed his Doxycycline and Augmentin yesterday. Today patient complaining of generalized weakness as well as shortness of breath at rest as well as with exertion, having difficulty climbing his stairs at home. He has had occasional cough with holly sputum as well as lightheadedness. Patient notes dark, bloody hematuria ongoing for the last three days - no clots. He has some mild anterior right rib discomfort. Occasional dizziness. Denies chest pain, SOB, no edema or significant weight gain. Patient with urinary retention. Has had an indwelling Ring in place since November. He follows with Urology at [facility]. Last changed during his most recent hospitalization. He has a Urology appointment on March 02 for cystoscopy. Patient had a PET scan performed at [facility] on 02/07/25 which revealed - Interval progression of metastatic disease: Widespread metabolically active osseous metastatic disease involving axial and proximal appendicular skeleton. New metabolic active lymph nodes in the cervical, thoracic and retroperitoneal region worrisome of kathy metastatic disease. New RLL infiltrate and small to moderate size pleural effusion. Please correlate with history of recent chest infection/aspiration pneumonia. Multiple nonacute incidental findings on CT. Patient has a followup appointment on 02/27/25. In the ER she is afebrile, HD stable ER Course: NXX x 2L Cefepime 2gm Vancomycin 1500mg Guaifenesin LR Tylenol Discharge Exam pleasant, some loss of breath sounds are right base Discharge Plan Discharge Items Patient Disposition: Home - Self-Care Reason For Visit: SHORTNESS OF BREATH, HEMATURIA Discharge Diagnosis: pleural effusion s/p thoracentesis and chest tube hematuria now clear Condition on Discharge: Fair Activity: Per Instructions section Non-emergency contact: Primary Care Provider Call non-emergency contact if: you have any medication questions, your symptoms worsen and your pain is not controlled Follow-up/Referrals: López Hutchins DO [Resident] - 02/23/25 10:25 am Diet: Regular Addtl Attending Provider Instructions: complete your antibiotics restart your blood thinner, apixaban, if your urine becomes red contact your urologist for advice, if you have clots like jelly in your urine stop the blood thinner and report to the ER Please be in contact with your oncologist about the next steps to treat the malignant cells found in your lungs fluid Pending Studies at Discharge: No Stand-Alone Forms: My [facility] [employer], Smoking Cessation Medications and DC Order Prescriptions: New cefdinir 300 mg capsule 300 mg PO BID 5 Days Qty: 10 0RF oxycodone 5 mg tablet 5 - 10 mg PO TID PRN (Reason: pain) Qty: 20 0RF Continued tamsulosin [Flomax] 0.4 mg capsule 0.4 mg PO DAILY Qty: 90 3RF dutasteride [Avodart] 0.5 mg capsule 0.5 mg PO DAILY Qty: 90 3RF Men's 50 Plus Multivitamin 400-20-370 mcg Tablet 1 tab PO QDD omeprazole 20 mg capsule,delayed release(DR/EC) 40 mg PO DAILYBB amiodarone 200 mg Tablet 200 mg PO BIDM 28 Days Qty: 56 0RF Eliquis 5 mg Tablet 5 mg PO BID Qty: 60 0RF guaifenesin [Mucinex] 600 mg Tablet Extended Release 12hr 1,200 mg PO Q12 Qty: 8 0RF acetaminophen 500 mg tablet 1,000 mg PO Q8 PRN (Reason: PAIN/ACHES/FEVER) docusate sodium 100 mg capsule 100 mg PO BID PRN (Reason: Constipation) Discharge Orders: Discharge Order (Routine); Ordered 02/16/25 Ordered By: Douglas Cisneros Admission Data Admit Date/Time: 02/11/25 13:01 Attending Provider: Douglas Cisneros Admit Provider: America Zaragoza Primary Care Provider: Ryann Doty Other Providers: America Zaragoza; Tyler Lawrence; Benjamin Rogers; Madhav Farrell; Yue Good; Jarek Oneill; Wesley Ren; Comfort Mathur; Isauro Madrid Other Interventions: Discharge Summary Assessment (RN) Last Done: 02/16/25 12:13 Hospital Stay Data Consultations 02/09/25 19:15 ED Decision to Admit Stat 02/09/25 23:52 Consult Urology Routine 02/11/25 13:02 Consult Pulmonology Routine Diagnostic Imagining Performed 02/09/25 15:59 CT abd pelvis IV con only Stat 02/10/25 13:40 CT abdomen w oral con only Urgent CT chest diagnostic wo con Urgent 02/13/25 08:19 US point of care ultrasound Urgent 02/14/25 10:04 US point of care ultrasound Urgent Pending Results Patient Have Any Pending Studies at Discharge: No Discharge Instructions Given to Patient (Per Discharging Provider) complete your antibiotics restart your blood thinner, apixaban, if your urine becomes red contact your urologist for advice, if you have clots like jelly in your urine stop the blood thinner and report to the ER Please be in contact with your oncologist about the next steps to treat the malignant cells found in your lungs fluid Total Time Total Time Spent Total Time Spent (In Minutes): I personally have spent greater than 30 minutes of time on the patient discharge today including review of tests, documentation, exam, and discussing treatment plan moving forward with the patient. Coding Level of Care Code 85474 INP/OBS DISCH >30 MIN Diagnoses Pneumonia J18.9 Laterality: unspecified laterality Lung location: unspecified part of lung Pneumonia type: due to unspecified organism Adenocarcinoma of esophagus C15.9 Hematuria R31.9 Hematuria type: unspecified type Dyslipidemia E78.5 Atrial flutter, unspecified type I48.92 Atrial flutter type: unspecified
== END 2025-02-16 14:06 | disposition home or self-care (01) | DRG 374 ==
LOC: ED 15:39 → 2N 15:39 → SUATTDRO 19:50 → 2N 21:07 → SUATTDRO 02-11 13:01